=== PATIENT | male | born 1965 | race Caucasian/White ===

== ENCOUNTER 2016-07-15 23:59 | Inpatient (IN) ==
--- NOTE | 2016-07-16 00:21 | Emergency Department Note ---
Disposition Clinical Impression: UTI (urinary tract infection) Qualifiers: Urinary tract infection type: catheter-associated UTI Indwelling urinary catheter type: cystostomy catheter Encounter type: initial encounter Qualified Code(s): T83.510A - Infection and inflammatory reaction due to cystostomy catheter, initial encounter; N39.0 - Urinary tract infection, site not specified Disposition: Admitted As Inpatient Condition: Fair Referrals: NO,PCP [Non-Partnered Physician] - Forms: ED Satisfaction Letter General Adult HPI - General Chief complaint: ED Urogenital-Male Stated complaint: low urine output Time Seen by Provider: 07/16/16 00:18 Source: patient, EMS Mode of arrival: EMS Limitations: no limitations Nursing Notes Reviewed: Yes Vital Signs Reviewed: Yes - History of Present Illness Pt Subjective Complaint: Decreased urine output Onset (ago): day(s) ("All day only 1100 out per significant other") Pain Scale: 0 Consistency: intermittent Improves with: nothing Worsens with: nothing Associated symptoms: Denies: confusion, chest pain, cough, diaphoresis, fever/ chills, headaches, loss of appetite, malaise, nausea/vomiting, rash, seizure, shortness of breath, syncope, weakness Treatments Prior to Arrival: none - Related Data Home Medications Medication Instructions Recorded Confirmed Ascorbic Acid [Vitamin C] 500 mg PO DAILY 03/20/15 05/10/16 Carvedilol 12.5 mg GTUBE DAILY 03/20/15 05/10/16 Loratadine [Claritin] 10 mg GTUBE DAILY 03/20/15 05/10/16 Metformin HCl [Glucophage] 1,000 mg PO BID 03/20/15 05/10/16 Oxybutynin Chloride [Ditropan Xl] 5 mg GTUBE TID 03/20/15 05/10/16 Albuterol Sulfate [Ventolin Hfa] 1 puff IH BID 11/02/15 05/10/16 Cyanocobalamin (Vitamin B-12) 500 mcg PO DAILY 05/10/16 05/10/16 [Vitamin B-12] Docusate Sodium [Docu Liquid] 100 mg PO BID 05/10/16 05/10/16 Oxycodone HCl 15 mg PO Q6H PRN 05/10/16 05/10/16 Ranitidine HCl [Acid Model Artists'] 150 mg PO DAILY 05/10/16 05/10/16 Sennosides [Senna] 8.8 mg PO BID 05/10/16 05/10/16 Valproic Acid Oral Soln [Depakene 250 mg PO TID 05/10/16 05/10/16 Oral Soln] Previous Rx's Medication Instructions Recorded Ondansetron HCl [Zofran] 4 mg PO Q6HR PRN #30 tablet 10/04/15 Quetiapine Fumarate [Seroquel] 400 mg GTUBE HS 30 Days 10/29/15 RisperiDONE [RisperDAL] 0.5 mg PO BID #30 tablet 10/29/15 Butalb/Acetaminophen/Caffeine 1 each PO Q6HR PRN #10 tablet 11/06/15 [Esgic 50-325-40 mg Tablet] ClonazePAM [Klonopin] 1 mg GTUBE TID PRN #10 tablet 11/06/15 Docusate [Colace] 100 mg PO BID #14 capsule 04/11/16 Ertapenem [INVanz] 1,000 mg IVPB DAILY #14 vial 05/11/16 Allergies Allergy/AdvReac Type Severity Reaction Status Date / Time azithromycin [From Zithromax] Allergy Anaphylaxis Verified 05/10/16 17:40 linezolid [From Zyvox] Allergy Anaphylaxis Verified 05/10/16 17:40 Limitations: ROS unobtainable due to patients medical condition (patient was given 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 of 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 - 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) Past Medical History - Past Medical History Source: obtained from family Medical history: Reports: diabetes, GERD, hyperlipidemia, hypertension, other ( paraplegic, scaral and ischial ulcers, LE ulcers, Suprapubic catheter, PEG tube) Surgical history: Reports: other Psychiatric history: Reports: bipolar, schizophrenia - Social History Smoking Status: Current every day smoker Smokeless Tobacco Status: No Alcohol use: Reports: none Drug use: Reports: none Physical Exam - General Limitations: no limitations General appearance: in no apparent distress - Head Head exam: atraumatic, normocephalic, normal inspection - Eye Eye exam: Present: normal appearance, PERRL. Absent: scleral icterus, conjunctival injection, periorbital swelling, periorbital tenderness - ENT ENT exam: mucous membranes dry - Neck Neck exam: Present: normal inspection, full ROM, trachea midline. Absent: meningismus, lymphadenopathy - Chest Chest inspection: Present: normal inspection - Respiratory Respiratory exam: Present: normal lung sounds bilaterally. Absent: respiratory distress, wheezes, stridor, accessory muscle use, prolonged expiratory phase - Cardiovascular Cardiovascular exam: Present: normal rhythm, tachycardia, normal heart sounds - Abdominal Exam Abdominal exam: Present: soft, Non-Tender, other (suprapubic catheter in place. No erythema, no drainage, small amount of urine leaking around.). Absent: distention, guarding, rebound, rigidity, mass - Male exam: Present: normal inspection - Extremities Exam Extremities exam: Present: normal capillary refill - Neurological Exam Neurological exam: Present: other (somnolent) - Psychiatric Psychiatric exam: Present: normal affect, normal mood - Skin Skin exam: Present: warm, dry, normal color Course Course Narrative: Patient was sent in for evaluation of decreased urine output for the past 12 hours. Information was given to EMS and by the patient's significant other. The patient was given all of his nighttime medications, right before she called EMS. These medications are sedating. He is very sleepy. He arouses to loud verbal stimulus. There is a small amount of urine leaking from around the suprapubic catheter. The catheter balloon was attempted to be deflated. No air return. However, there was urine that returned. The catheter was removed and urine began to flow freely from the ostomy. A new catheter was placed without difficulty and urine began to fill the catheter bag. At this point, the patient became more alert and his heart rate decreased to the high 80s. Patient is a and O 3. He does not recall the name of his primary care provider. He does have a home health nurse. However, she is unable to be reached at this time. The urinalysis shows findings consistent with an infection. His recent urine cultures have grown Proteus and pseudomonas, which are resistant to all oral antibiotics. Will admit Vital Signs Temperature 98.5 F 07/16/16 00:01 Pulse Rate 108 07/16/16 00:01 Respiratory Rate 16 07/16/16 00:01 Blood Pressure 122/80 07/16/16 00:01 O2 Sat by Pulse Oximetry 92 L 07/16/16 00:01 Temperature 98.5 F 07/16/16 00:01 Pulse Rate 93 07/16/16 03:38 Respiratory Rate 16 07/16/16 03:38 Blood Pressure 123/80 07/16/16 03:38 O2 Sat by Pulse Oximetry 95 07/16/16 03:38 Oxygen Delivery Oxygen Delivery Nasal Cannula Medical Decision Making - Lab Data Result diagrams: 07/16/16 00:42 07/16/16 00:42 Lab Results 07/16/16 07/16/16 07/16/16 Range/Units 00:42 00:42 02:30 WBC 9.9 (4.3-11.1) K/mcL RBC 5.02 (4.19-5.50) M/mcL Hgb 16.2 (12.9-16.9) g/dL Hct 48.6 (37.5-50.1) % MCV 96.8 (83.0-100.0) fL MCH 32.3 (28.0-33.3) pg MCHC 33.3 (31.6-35.5) g/dL RDW 13.9 (11.5-14.5) % Plt Count 188 (140-400) K/mcL MPV 11.5 (9.4-12.4) fL Immature Gran % 0.8 (0-4) % Seg Neutrophils % 76.7 % Lymphocytes % 10.5 % Monocytes % 8.6 % Eosinophils % 2.9 % Basophils % 0.5 % Neutrophils # 7.6 (1.6-8.9) K/mcL Lymphocytes # 1.0 (0.6-4.6) K/mcL Monocytes # 0.9 (0.0-1.3) K/mcL Eosinophils # 0.3 (0.0-0.6) K/mcL Basophils # 0.1 (0.0-0.2) K/mcL Immature Plt Fraction 7.1 H (1.1-6.1) % Sodium 132 L (136-145) mEq/L Potassium 5.8 H (3.5-4.5) mEq/L Chloride 92 L (98-109) mEq/L Carbon Dioxide 31 H (19-29) mEq/L BUN 23 (8-26) mg/dL Creatinine 0.64 L (0.72-1.25) mg/dL Est GFR ( Amer) > 60 (> 60) Est GFR (Non-Af Amer) > 60 (> 60) BUN/Creatinine Ratio 36 H (6-26) Glucose 202 H (70-99) mg/dL Calculated Osmolality 283 (280-300) Calcium 10.0 (8.6-10.8) mg/dL Urine Color Yellow (Yellow) Urine Clarity Cloudy A (Clear) Urine pH 7.0 (5.0-8.0) pH Units Ur Specific [place] 1.010 (1.010-1.025) Urine Protein Negative (Neg-Trace) mg/dL Urine Glucose (UA) Normal (Normal) mg/dL Urine Ketones Negative (Negative) mg/dL Urine Blood Moderate H (Negative) Urine Nitrite Positive A (Negative) Urine Bilirubin Negative (Negative) Urine Urobilinogen Normal (Normal) mg/dL Ur Leukocyte Esterase Large H (Negative) Urine Microscopic RBC 0-3 (0-3) per hpf Urine Microscopic WBC 30-50 H (0-3) per hpf Ur Squamous Epith Cells Many H (None-Few) per lpf Urine Bacteria Many H (None-Few) per hpf Hyaline Casts None Seen (None-Few) per lpf Ur Culture Indicated? YES A (NO) Attestation Statement - Attestation Attestation: I examined this patient and my medical decision-making was reviewed with the Resident Physician. I agree with the documented findings, disposition and treatment plan as described except to the extent set forth below. Urinary cath obstructed - when cleared, approx 1000 cc urine return, pt felt much better. However, urine infected, h/o multidrug resistant infxns. K+ also mildly elevated. Abx choice based on prior cx results, Kayexalate given. Pt girlfriend does not seem very reliable, don't feel confident he'll get appropriate treatment and follow up as an outpatient, unable to identify his PCP. Will admit pending culture results, determine +/- need for PICC line/IV abx with social work/home nursing involvement vs. oral abx.
[2016-07-16 00:59] LABS: Basophils # 0.1 K/mcL (0.0-0.2); Basophils % 0.5 %; Eosinophils # 0.3 K/mcL (0.0-0.6); Eosinophils % 2.9 %; Hematocrit 48.6 % (37.5-50.1); Hemoglobin 16.2 g/dL (12.9-16.9); Immature Granulocytes % 0.8 % (0-4); Immature Platelets 7.1 % (1.1-6.1); Lymphocytes % 10.5 %; Mean Corpuscular HGB Conc 33.3 g/dL (31.6-35.5); Mean Corpuscular Hemoglobin 32.3 pg (28.0-33.3); Mean Corpuscular Volume 96.8 fL (83.0-100.0); Mean Platelet Volume 11.5 fL (9.4-12.4); Monocytes # 0.9 K/mcL (0.0-1.3); Monocytes % 8.6 %; Neutrophils # 7.6 K/mcL (1.6-8.9); Platelet Count 188 K/mcL (140-400); Red Blood Count 5.02 M/mcL (4.19-5.50); Red Cell Distribution Width 13.9 % (11.5-14.5); Segmented Neutrophils % 76.7 %
[2016-07-16 01:12] LABS: BUN/Creatinine Ratio 36 (6-26); Blood Urea Nitrogen 23 mg/dL (8-26); Carbon Dioxide 31 mEq/L (19-29); Chloride 92 mEq/L (98-109); Glucose 202 mg/dL (70-99); Osmolality,Calculated 283 (280-300); Potassium 5.8 mEq/L (3.5-4.5); Sodium 132 mEq/L (136-145); eGFR For African Americans > 60 (> 60); eGFR For Non-African Americans > 60 (> 60)
[2016-07-16 02:57] LABS: Bacteria,Urine Many per hpf (None-Few); Bilirubin,Urine Negative (Negative); Blood,Urine Moderate (Negative); Clarity,Urine Cloudy (Clear); Color,Urine Yellow (Yellow); Glucose,Urine (UA) Normal (Normal); Hyaline Casts,Urine None Seen per lpf (None-Few); Ketones,Urine Negative (Negative); Leukocyte Esterase,Urine Large (Negative); Nitrite,Urine Positive (Negative); Protein,Urine Negative (Neg-Trace); RBC,Urine 0-3 per hpf (0-3); Squamous Epithelial Cell,Urine Many per lpf (None-Few); Urobilinogen,Urine Normal (Normal); WBC,Urine 30-50 per hpf (0-3)
[2016-07-16] MEDS ORDERED: cefOXitin 2,000 MG in D5% in Water (Mini-Bag+) 100 ML IVPB ONE (03:56)
[2016-07-16] MEDS ORDERED: MORPHINE SULFATE 20 MG PO PRN (09:52)
[2016-07-16] MEDS ORDERED: Albuterol 2.5 MG/3 ML NEBULIZER IH PRN (09:54)
[2016-07-16] MEDS ORDERED: *HR* Dextrose 50 % in Water (Syg) 50 ML SYRINGE IVP PRN (09:55)
[2016-07-16] MEDS ORDERED: Dextrose Gel 15 GM PO PRN ×2 (09:55)
[2016-07-16] MEDS ORDERED: D5% in Water 1,000 ML IV PRN (09:55)
[2016-07-16] MEDS ORDERED: Naloxone 0.4 MG/ML INJ IVP PRN (09:56)
[2016-07-16] MEDS ORDERED: Lactulose Oral Soln 20 GM/30 ML UDC GTUBE ONE (10:01)
--- NOTE | 2016-07-16 10:07 | Internal Med History&Physical ---
Date of Encounter: 07/16/16 Time of Encounter: 09:35 Internal Medicine - H&P: HPI Chief complaint: confusion, weakness, bodyaches, diaphoresis, subjective fever Admitted From: Emergency Dept Plans for Post Hospital Care: Home History of present illness: Mr. Jaramillo is a 51 year old male with medical history significant for paraplegia, neurogenic ballder s/p suprapubic cystotomy because of confusion, somnolence and decrease urinary output from urinary catheter. He was brought in by EMS. At the time he arrived the ED, it as thought that his sleepiness was related related to taking 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 medications which are sedating. In the ED, the urinary catheter was changed as an obstruction was suspected. A small amount of discharge was noted around the catheter. It was noted that the patient became more alert (and was easily arousable). When I saw him, he was still drowsy but able to answer a few questions. He tells me he has UTI, he agrees to having confusion, subjective fevers, more weakness than usual. I am informed he lives at home and has home health services. I am unable to confirm his code status, no one is listed under NOK/POA on his facesheet. She is FULL CODE as per discussion, she nominates her , Felix Tan, as her NOK/POA. ROS: A 10-point ROS was attempted, but limited by patient's drowsy state. Family history: Attempted, , but limited by patient's drowsy state. Vital Signs Temperature 98.5 F 07/16/16 00:01 Pulse Rate 108 07/16/16 00:01 Respiratory Rate 16 07/16/16 00:01 Blood Pressure 122/80 07/16/16 00:01 O2 Sat by Pulse Oximetry 92 L 07/16/16 00:01 Temperature 98.5 F 07/16/16 00:01 Pulse Rate 93 07/16/16 03:38 Respiratory Rate 16 07/16/16 03:38 Blood Pressure 123/80 07/16/16 03:38 O2 Sat by Pulse Oximetry 95 07/16/16 03:38 O/E: Not in distress, drowsy/somnolent, ill and toxic looking HEENT: Not pale, anicteric, acyanotic, afebrile Chest: Transmitted breath sounds, some inconsistent rattling sounds, appear to be upper airway secretions. Heart: RRR, HS1.2 no murmur Abdomen: Chronically distended (as per patient), PEG tube site clean and dry, suprapubic catheter site site has minimal amount of discharge, soft, non-tender , firmness felt over the ascending colon in the mid and lower lower right half of the abdomen. BS hypoactive. : no suprapubic tenderness. Unable to reach the flank to elicit flank tenderness. 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 Psychiatry: Unable to assess. Affect is definited constructed (masked). Extremities: Paraplegic, heels cushions to prevent ulcer. I did not turn the patient over, but I understand he has sacral decubitus ulcer. Lab Results 07/16/16 07/16/16 07/16/16 Range/Units 00:42 00:42 02:30 WBC 9.9 (4.3-11.1) K/mcL RBC 5.02 (4.19-5.50) M/mcL Hgb 16.2 (12.9-16.9) g/dL Hct 48.6 (37.5-50.1) % MCV 96.8 (83.0-100.0) fL MCH 32.3 (28.0-33.3) pg MCHC 33.3 (31.6-35.5) g/dL RDW 13.9 (11.5-14.5) % Plt Count 188 (140-400) K/mcL MPV 11.5 (9.4-12.4) fL Immature Gran % 0.8 (0-4) % Seg Neutrophils % 76.7 % Lymphocytes % 10.5 % Monocytes % 8.6 % Eosinophils % 2.9 % Basophils % 0.5 % Neutrophils # 7.6 (1.6-8.9) K/mcL Lymphocytes # 1.0 (0.6-4.6) K/mcL Monocytes # 0.9 (0.0-1.3) K/mcL Eosinophils # 0.3 (0.0-0.6) K/mcL Basophils # 0.1 (0.0-0.2) K/mcL Immature Plt Fraction 7.1 H (1.1-6.1) % Sodium 132 L (136-145) mEq/L Potassium 5.8 H (3.5-4.5) mEq/L Chloride 92 L (98-109) mEq/L Carbon Dioxide 31 H (19-29) mEq/L BUN 23 (8-26) mg/dL Creatinine 0.64 L (0.72-1.25) mg/dL Est GFR ( Amer) > 60 (> 60) Est GFR (Non-Af Amer) > 60 (> 60) BUN/Creatinine Ratio 36 H (6-26) Glucose 202 H (70-99) mg/dL Calculated Osmolality 283 (280-300) Calcium 10.0 (8.6-10.8) mg/dL Urine Color Yellow (Yellow) Urine Clarity Cloudy A (Clear) Urine pH 7.0 (5.0-8.0) pH Units Ur Specific [place] 1.010 (1.010-1.025) Urine Protein Negative (Neg-Trace) mg/dL Urine Glucose (UA) Normal (Normal) mg/dL Urine Ketones Negative (Negative) mg/dL Urine Blood Moderate H (Negative) Urine Nitrite Positive A (Negative) Urine Bilirubin Negative (Negative) Urine Urobilinogen Normal (Normal) mg/dL Ur Leukocyte Esterase Large H (Negative) Urine Microscopic RBC 0-3 (0-3) per hpf Urine Microscopic WBC 30-50 H (0-3) per hpf Ur Squamous Epith Cells Many H (None-Few) per lpf Urine Bacteria Many H (None-Few) per hpf Hyaline Casts None Seen (None-Few) per lpf Ur Culture Indicated? YES A (NO) Chest xray: Bibasilar atelectasis KUB: Stool-filled colon. IMP 1. Complicated UTI, I cannot exclude early sepsis. 2. Altered mental status related to above 3. Blocked suprapubic catheter 4. Hyperkalemia 5. 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 PLAN Admit IVF NS @ 125 Suprapubic catheter has been changed IV Zosyn 3.375 mg Q8H Follow-up urine and blood cultures. Serial assessment of mental status. Kayexylate/Lactulose and IVF for hyperkalemia, trend serum potassium. Methyl natrexone 12 mg x 1, continue senna, colace for constipation Lovenox 40 mg SC for DVT prophlaxis Symptomatic care. Wound care consult for decubitus ulcer care. Hold metformin, continue Januvia, add low dose insulin sliding scale Q6H Continue Glucerna for tube feeding Continue home analgesic regimen. Albuterol nebs q4h Continue other essential medications of chronic morbidities. Decubitus ulcer prevention. I am unable to discuss my findings and assessment with the patient due to his status. He needs admission as he is at high risk for sepsis. Past Med Surg Social Fam HX - Past Medical History Medical history: diabetes, GERD, hyperlipidemia, hypertension, other Psychiatric history: bipolar, schizophrenia - Past Surgical History Surgical History: other - Social History Smoking Status: Current every day smoker Smokeless Tobacco Status: No Alcohol use: none Drug use: none - Family History Mother Adopted: No Family Member Ethnicity: Non- Living Status: Hx Family Cardiac Disorders: No Hx Family Respiratory Disorders: No Hx Family Cancer: No Hx Family GI Disorders: No Hx Family Endocrine Disorder: No Hx Family Neuromuscular Disorders: No Hx Family Neurologic Disorders: No Hx Family HEENT Disorders: No Hx Family Autoimmune Disorders: No Internal Medicine - H&P: Meds Ascorbic Acid [Vitamin C] 500 mg PO DAILY 03/20/15 [History] Carvedilol 6.25 mg GTUBE DAILY 03/20/15 [History] Loratadine [Claritin] 10 mg GTUBE DAILY 03/20/15 [History] Metformin HCl [Glucophage] 1,000 mg PO BID 03/20/15 [History] Oxybutynin Chloride [Ditropan Xl] 5 mg GTUBE TID 03/20/15 [History] Ondansetron HCl [Zofran] 4 mg PO Q6HR PRN #30 tablet 10/04/15 [Rx] Quetiapine Fumarate [Seroquel] 400 mg GTUBE HS 30 Days 10/29/15 [Rx] RisperiDONE [RisperDAL] 0.5 mg PO BID #30 tablet 10/29/15 [Rx] Albuterol Sulfate [Ventolin Hfa] 2 puff IH Q4H PRN 11/02/15 [History] ClonazePAM [Klonopin] 1 mg GTUBE TID PRN #10 tablet 11/06/15 [Rx] Cyanocobalamin (Vitamin B-12) [Vitamin B-12] 500 mcg PO DAILY 05/10/16 [History] Docusate Sodium [Docu Liquid] 100 mg PO BID 05/10/16 [History] Oxycodone HCl 15 mg PO Q6H PRN 05/10/16 [History] Ranitidine HCl [Acid Health Program Analyst] 150 mg PO DAILY 05/10/16 [History] Sennosides [Senna] 2 ml PO HS 05/10/16 [History] Valproic Acid Oral Soln [Depakene Oral Soln] 250 mg PO TID 05/10/16 [History] Butalb/Acetaminophen/Caffeine [Esgic 50-325-40 mg Tablet] 1 tab PO TID PRN 07/16 [History] Morphine Sulfate 20 mg PO Q4H PRN 07/16/16 [History] Pregabalin [Lyrica] 150 mg PO BID 07/16/16 [History] Promethazine [Phenergan] 25 mg PO TID PRN 07/16/16 [History] Allergies azithromycin [From Zithromax] Allergy (Verified 05/10/16 17:40) Anaphylaxis linezolid [From Zyvox] Allergy (Verified 05/10/16 17:40) Anaphylaxis All Systems PM: A 10-system review of systems was performed and is negative for pertinent findings except as documented above in the HPI. - Constitutional Vitals: Temp Pulse Resp BP Pulse Ox 98.5 F 93 16 138/88 99 07/16/16 07:42 07/16/16 07:42 07/16/16 07:42 07/16/16 07:42 07/16/16 07:42 Internal Med - H&P Results - Labs CBC & Chem 7: 07/16/16 00:42 07/16/16 00:42
[2016-07-16] MEDS: 0.9 % Sodium Chloride 1,000 ML IVC SCH ×2 (10:46→20:00)
[2016-07-16] MEDS: clonazePAM 1 MG TABLET GTUBE PRN (10:47)
[2016-07-16] MEDS: *HR* OxyCODONE Immed Rel 15 MG TABLET PO PRN ×2 (10:48→16:46)
[2016-07-16] MEDS ORDERED: Methylnaltrexone 12 MG/0.6 ML SYRINGE SQ ONE (11:09)
[2016-07-16] MEDS: Valproic Acid Oral Soln 250 MG/5 ML UDC PO SCH ×2 (13:17→20:32)
[2016-07-16] MEDS: Acetaminophen/Butalbital/CaffeineTABLET PO PRN ×2 (13:17→20:32)
[2016-07-16] MEDS: Insulin LISPRO 300 UNITS/3 ML VIAL SQ SCH ×2 (13:18→16:47)
[2016-07-16] MEDS: Piperacillin/Tazobactam 3.375 GM in D5% in Water (Mini-Bag+) 100 ML IVPB SCH ×2 (15:02→23:41)
[2016-07-16 15:17] LABS: BUN/Creatinine Ratio 21 (6-26); Blood Urea Nitrogen 14 mg/dL (8-26); Calcium 9.7 mg/dL (8.6-10.8); Carbon Dioxide 33 mEq/L (19-29); Chloride 95 mEq/L (98-109); Glucose 202 mg/dL (70-99); Osmolality,Calculated 292 (280-300); Sodium 138 mEq/L (136-145); eGFR For African Americans > 60 (> 60); eGFR For Non-African Americans > 60 (> 60)
[2016-07-16 15:18] LABS: Potassium 3.9 mEq/L (3.5-4.5)
[2016-07-16] MEDS ORDERED: Ketorolac 30 MG/ML VIAL IVP ONE (16:16)
[2016-07-16] MEDS: Pregabalin 75 MG CAPSULE PO SCH (20:32)
[2016-07-16] MEDS: Docusate Oral Soln 100 MG/10 ML UDC PO SCH (20:32)
[2016-07-16] MEDS: risperiDONE 0.25 MG TABLET PO SCH (20:32)
[2016-07-17] MEDS: Insulin LISPRO 300 UNITS/3 ML VIAL SQ SCH ×4 (00:29→18:05)
[2016-07-17] MEDS: *HR* OxyCODONE Immed Rel 15 MG TABLET PO PRN ×3 (00:29→20:15)
[2016-07-17] MEDS: 0.9 % Sodium Chloride 1,000 ML IVC SCH (04:30)
[2016-07-17 04:53] LABS: BUN/Creatinine Ratio 38 (6-26); Blood Urea Nitrogen 21 mg/dL (8-26); Calcium 9.3 mg/dL (8.6-10.8); Carbon Dioxide 37 mEq/L (19-29); Chloride 95 mEq/L (98-109); Glucose 118 mg/dL (70-99); Osmolality,Calculated 290 (280-300); Potassium 3.8 mEq/L (3.5-4.5); Sodium 138 mEq/L (136-145); eGFR For African Americans > 60 (> 60); eGFR For Non-African Americans > 60 (> 60)
[2016-07-17] MEDS: Acetaminophen/Butalbital/CaffeineTABLET PO PRN (06:04)
[2016-07-17] MEDS ORDERED: *HR* Enoxaparin 40 MG/0.4 ML SYRINGE SQ ONE (08:20)
[2016-07-17] MEDS ORDERED: NON-FORMULARY MEDICATION 1 EACH EACH (Ranitidine Hcl [Acid Reducer] 150 MG) PO SCH (09:00)
[2016-07-17] MEDS: Piperacillin/Tazobactam 3.375 GM in D5% in Water (Mini-Bag+) 100 ML IVPB SCH ×2 (10:19→15:22)
[2016-07-17] MEDS: Cyanocobalamin (B-12) 1,000 MCG TABLET PO SCH (10:22)
[2016-07-17] MEDS: Valproic Acid Oral Soln 250 MG/5 ML UDC PO SCH ×3 (10:22→20:15)
[2016-07-17] MEDS: Docusate Oral Soln 100 MG/10 ML UDC PO SCH ×2 (10:22→20:15)
[2016-07-17] MEDS: Famotidine 20 MG TABLET PO SCH (10:22)
[2016-07-17] MEDS: clonazePAM 1 MG TABLET GTUBE PRN (10:23)
[2016-07-17] MEDS: Ascorbic Acid 500 MG TABLET PO SCH (10:23)
[2016-07-17] MEDS: Pregabalin 75 MG CAPSULE PO SCH ×2 (10:23→20:15)
[2016-07-17] MEDS: Loratadine 10 MG TABLET GTUBE SCH (10:23)
[2016-07-17] MEDS: risperiDONE 0.25 MG TABLET PO SCH ×2 (10:23→20:15)
--- NOTE | 2016-07-17 10:56 | Internal Med Progress Note ---
Date of Encounter: 07/17/16 Time of Encounter: 10:54 - Assessment and plan (1) UTI (urinary tract infection) Current Visit: Yes Status: Acute Assessment and plan: Complicated UTI in the setting of a patient with paraplegia and a suprapubic catheter. Gram-negative rods isolated in the urine. We will continue with Zosyn at this point. Adjust therapy according to cultures. No sepsis criteria currently, we will continue monitoring the patient closely. The patient is at high risk and developing complications such as sepsis in the setting of his condition of poor nutrition and paraplegia with a concomitant urinary tract infection. No leukocytosis, no fever. DVT prophylaxis with Lovenox. Qualifiers: Urinary tract infection type: catheter-associated UTI Indwelling urinary catheter type: cystostomy catheter Encounter type: initial encounter Qualified Code(s): T83.510A - Infection and inflammatory reaction due to cystostomy catheter, initial encounter; N39.0 - Urinary tract infection, site not specified (2) Altered mental status Current Visit: No Status: Acute Assessment and plan: Likely due to concomitant infection. Continue monitoring. Qualifiers: Altered mental status type: unspecified Qualified Code(s): R41.82 - Altered mental status, unspecified (3) DVT prophylaxis Current Visit: No Status: Acute Assessment and plan: Continue with Lovenox. (4) Decubitus ulcer Current Visit: No Status: Acute Qualifiers: Pressure ulcer location: sacral region Pressure ulcer stage: unspecified pressure ulcer stage Qualified Code(s): L89.159 - Pressure ulcer of sacral region, unspecified stage (5) Paraplegia, unspecified Current Visit: No Status: Chronic Assessment and plan: Chronic. - Time Spent With Patient 25 - 35 minutes - Subjective Interval history: 1st encounter with the patient. No fever, the patient is not complaining of pain. He has a suprapubic catheter placed. - Constitutional Vitals: Temp Pulse Resp BP Pulse Ox 97.8 F 84 18 161/97 96 07/17/16 06:29 07/17/16 06:29 07/17/16 06:29 07/17/16 06:29 07/17/16 06:29 General appearance: Present: disheveled, A&O X 2, mild distress Exam: paraplegic, suprapubic catheter placed. - Head Head exam: Present: atraumatic, normocephalic - Eye Eye exam: Present: PERRL, conjuntiva pink, sclera anicteric Pupils: Present: PERRL - Neck Neck exam general surgery: Present: supple, trachea midline. Absent: lymphadenopathy - Respiratory Respiratory exam: Present: CTAB. Absent: accessory muscle use, rales, rhonchi, wheezes - Cardiovascular Cardiovascular exam: Present: RRR, +S1, +S2. Absent: diastolic murmur, gallop, rubs, systolic murmur - GI/Abdominal GI/Abdominal exam: Present: normal bowel sounds, soft, no peritoneal signs. Absent: distended, tenderness - Extremities Exam Extremities exam: Present: warm, radial pulses palpable and symetrical. Absent : calf tenderness, cyanotic, pedal edema - Neurological Exam Neurological exam: Absent: pronater drift, facial droop, speech deficit Additional comments: paraplagic - Skin Skin exam: Present: dry, intact Internal Medicine: Result - Labs CBC & Chem 7: 07/16/16 00:42 07/17/16 04:13 Labs: BMP 07/16/16 07/17/16 14:55 04:13 Sodium 138 138 Potassium 3.9 D 3.8 Chloride 95 L 95 L Carbon Dioxide 33 H 37 H BUN 14 21 Creatinine 0.66 L 0.56 L Glucose 202 H 118 H Calcium 9.7 9.3 - Impressions Impressions KUB X-Ray 07/16/16 10:02 IMPRESSION: Stool-filled colon consistent with the clinical diagnosis of constipation. D/ / 07/16/2016 10:49:40 Miles Klein MD / [facility] Interpreting Provider: Miles Klein MD Consult Discharge Plan - Plan Referrals: Kobe Bailon DO [Primary Care Provider] -
[2016-07-18] MEDS: Acetaminophen/Butalbital/CaffeineTABLET PO PRN ×2 (01:02→07:01)
[2016-07-18] MEDS: Piperacillin/Tazobactam 3.375 GM in D5% in Water (Mini-Bag+) 100 ML IVPB SCH (01:02)
[2016-07-18] MEDS: Insulin LISPRO 300 UNITS/3 ML VIAL SQ SCH ×2 (01:33→06:02)
[2016-07-18] MEDS: *HR* OxyCODONE Immed Rel 15 MG TABLET PO PRN ×2 (03:07→08:53)
[2016-07-18 06:53] VITALS: BP 146/92
[2016-07-18] MEDS ORDERED: *HR* Enoxaparin 40 MG/0.4 ML SYRINGE SQ SCH (07:00)
[2016-07-18 07:49] LABS: Basophils % 0.6 %; Eosinophils # 0.5 K/mcL (0.0-0.6); Eosinophils % 7.3 %; Immature Granulocytes % 0.3 % (0-4); Immature Platelets 6.5 % (1.1-6.1); Lymphocytes % 30.8 %; Mean Corpuscular HGB Conc 31.8 g/dL (31.6-35.5); Mean Corpuscular Hemoglobin 30.9 pg (28.0-33.3); Mean Corpuscular Volume 97.1 fL (83.0-100.0); Mean Platelet Volume 11.2 fL (9.4-12.4); Monocytes # 0.6 K/mcL (0.0-1.3); Monocytes % 9.5 %; Neutrophils # 3.3 K/mcL (1.6-8.9); Platelet Count 138 K/mcL (140-400); Red Blood Count 4.53 M/mcL (4.19-5.50); Red Cell Distribution Width 13.8 % (11.5-14.5); Segmented Neutrophils % 51.5 %
[2016-07-18 07:59] LABS: BUN/Creatinine Ratio 21 (6-26); Blood Urea Nitrogen 12 mg/dL (8-26); Calcium 8.1 mg/dL (8.6-10.8); Carbon Dioxide 32 mEq/L (19-29); Chloride 100 mEq/L (98-109); Glucose 128 mg/dL (70-99); Osmolality,Calculated 289 (280-300); Potassium 3.4 mEq/L (3.5-4.5); Sodium 139 mEq/L (136-145); eGFR For African Americans > 60 (> 60); eGFR For Non-African Americans > 60 (> 60)
[2016-07-18] MEDS ORDERED: Potassium Chloride Elixir 20 MEQ/15 ML UDC GTUBE ONE (08:31)
[2016-07-18] MEDS: clonazePAM 1 MG TABLET GTUBE PRN (08:44)
[2016-07-18] MEDS: Valproic Acid Oral Soln 250 MG/5 ML UDC PO SCH (08:44)
[2016-07-18] MEDS: risperiDONE 0.25 MG TABLET PO SCH (08:44)
[2016-07-18] MEDS: Docusate Oral Soln 100 MG/10 ML UDC PO SCH (08:44)
[2016-07-18] MEDS: Ascorbic Acid 500 MG TABLET PO SCH (08:44)
[2016-07-18] MEDS: Famotidine 20 MG TABLET PO SCH (08:45)
[2016-07-18] MEDS: Loratadine 10 MG TABLET GTUBE SCH (08:45)
[2016-07-18] MEDS: Pregabalin 75 MG CAPSULE PO SCH (08:45)
[2016-07-18] MEDS: Cyanocobalamin (B-12) 1,000 MCG TABLET PO SCH (08:46)
--- NOTE | 2016-07-18 10:24 | Discharge Summary ---
Date of Encounter: 07/18/16 Time of Encounter: 10:21 - Discharge Diagnosis (1) UTI (urinary tract infection) Priority: Primary Status: Acute Qualifiers: Urinary tract infection type: catheter-associated UTI Indwelling urinary catheter type: cystostomy catheter Encounter type: initial encounter Qualified Code(s): T83.510A - Infection and inflammatory reaction due to cystostomy catheter, initial encounter; N39.0 - Urinary tract infection, site not specified (2) Altered mental status Priority: Secondary Status: Acute Qualifiers: Altered mental status type: unspecified Qualified Code(s): R41.82 - Altered mental status, unspecified (3) DVT prophylaxis Priority: Secondary Status: Acute (4) Decubitus ulcer Priority: Secondary Status: Acute Qualifiers: Pressure ulcer location: sacral region Pressure ulcer stage: unspecified pressure ulcer stage Qualified Code(s): L89.159 - Pressure ulcer of sacral region, unspecified stage (5) Paraplegia, unspecified Priority: Secondary Status: Chronic - Discharge Medications Prescriptions: CefTRIAXone [Rocephin] 1,000 mg IVPB DAILY #9 vial Home Medications: Ascorbic Acid [Vitamin C] 500 mg PO DAILY 03/20/15 [History] Carvedilol 6.25 mg GTUBE DAILY 03/20/15 [History] Loratadine [Claritin] 10 mg GTUBE DAILY 03/20/15 [History] Metformin HCl [Glucophage] 1,000 mg PO BID 03/20/15 [History] Oxybutynin Chloride [Ditropan Xl] 5 mg GTUBE TID 03/20/15 [History] Ondansetron HCl [Zofran] 4 mg PO Q6HR PRN #30 tablet 10/04/15 [Rx] Quetiapine Fumarate [Seroquel] 400 mg GTUBE HS 30 Days 10/29/15 [Rx] RisperiDONE [RisperDAL] 0.5 mg PO BID #30 tablet 10/29/15 [Rx] Albuterol Sulfate [Ventolin Hfa] 2 puff IH Q4H PRN 11/02/15 [History] ClonazePAM [Klonopin] 1 mg GTUBE TID PRN #10 tablet 11/06/15 [Rx] Cyanocobalamin (Vitamin B-12) [Vitamin B-12] 500 mcg PO DAILY 05/10/16 [History] Docusate Sodium [Docu Liquid] 100 mg PO BID 05/10/16 [History] Oxycodone HCl 15 mg PO Q6H PRN 05/10/16 [History] Ranitidine HCl [Acid Edge Molder] 150 mg PO DAILY 05/10/16 [History] Sennosides [Senna] 2 ml PO HS 05/10/16 [History] Valproic Acid Oral Soln [Depakene Oral Soln] 250 mg PO TID 05/10/16 [History] Butalb/Acetaminophen/Caffeine [Esgic 50-325-40 mg Tablet] 1 tab PO TID PRN 07/16 [History] Morphine Sulfate 20 mg PO Q4H PRN 07/16/16 [History] Pregabalin [Lyrica] 150 mg PO BID 07/16/16 [History] Promethazine [Phenergan] 25 mg PO TID PRN 07/16/16 [History] CefTRIAXone [Rocephin] 1,000 mg IVPB DAILY #9 vial 07/18/16 [Rx] Allergies/Adverse Reactions: Allergies azithromycin [From Zithromax] Allergy (Verified 05/10/16 17:40) Anaphylaxis linezolid [From Zyvox] Allergy (Verified 05/10/16 17:40) Anaphylaxis Date of admission: 07/16/16 09:56 Primary care physician: Kobe Bailon DO Consults: 07/16/16 10:43 Consult to Wound Care [CONS] Routine Reason for Consult: wound care. Call Completed: No 07/16/16 12:33 Consult to Invasive Line Access Team [CONS] Routine Reason for Consult: Home on IV ATB Line Type: EPIV Discharging clinician: Rj Aguirre Anticipated date of discharge: 07/18/16 - Patient Status Disposition: Home Health Service Condition: Fair Functional capacity at discharge: bed bound Overall status at discharge: patient is back to baseline - Discharge Instructions Follow Up With: Kobe Bailon DO [Primary Care Provider] - - Diet and Activity Activity: increase activity as tolerated Diet: advance to your usual diet Interval History: Mr. Jaramillo is a 51 year old male with medical history significant for paraplegia, neurogenic ballder s/p suprapubic cystotomy because of confusion, somnolence and decrease urinary output from urinary catheter. He was brought in by EMS. At the time he arrived the ED, it as thought that his sleepiness was related related to taking 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 medications which are sedating. In the ED, the urinary catheter was changed as an obstruction was suspected. A small amount of discharge was noted around the catheter. It was noted that the patient became more alert (and was easily arousable). When I saw him, he was still drowsy but able to answer a few questions. He tells me he has UTI, he agrees to having confusion, subjective fevers, more weakness than usual. I am informed he lives at home and has home health services. I am unable to confirm his code status, no one is listed under NOK/POA on his facesheet. She is FULL CODE as per discussion, she nominates her , Felix Tan, as her NOK/POA. ROS: A 10-point ROS was attempted, but limited by patient's drowsy state. Family history: Attempted, , but limited by patient's drowsy state. Hospital course: Mr. Jaramillo is a 51 year old male Complicated UTI in the setting of a patient with paraplegia and a suprapubic catheter. Gram-negative rods isolated in the urine. Klebsiella isolated, sensitive to Rocephin. Antibiotic therapy was switched from Zosyn to Rocephin. The patient is feeling much better today, he is back to his baseline clinical condition. We will discharge him home today, will continue with IV antibiotics to complete 10 days of IV Rocephin. Patient has power glyde for continuity of IV antibiotics. Prescriptions written for Rocephin to complete 10 days. We provide a continuity of care form for continuity of IV antibiotics at home. The plan of care was explained in detail to the patient, he expressed understanding. - Time Spent with Patient Total time spent providing and/or coordinating discharge services: Greater than 30 minutes - Constitutional Vitals: Temp Pulse Resp BP Pulse Ox 97.7 F 72 20 146/92 100 07/18/16 06:53 07/18/16 06:53 07/18/16 06:53 07/18/16 06:53 07/18/16 06:53 General appearance: Present: disheveled, A&O X 2, mild distress Exam: paraplegia suprapubic catheter noted. - Head Head exam: Present: atraumatic, normocephalic - Eye Eye exam: Present: PERRL, conjuntiva pink, sclera anicteric Pupils: Present: PERRL - Neck Neck exam general surgery: Present: supple, trachea midline. Absent: lymphadenopathy - Respiratory Respiratory exam: Present: CTAB. Absent: accessory muscle use, rales, rhonchi, wheezes - Cardiovascular Cardiovascular exam: Present: RRR, +S1, +S2. Absent: diastolic murmur, gallop, rubs, systolic murmur - GI/Abdominal GI/Abdominal exam: Present: normal bowel sounds, soft, no peritoneal signs. Absent: distended, tenderness - Extremities Exam Extremities exam: Present: warm, radial pulses palpable and symetrical. Absent : calf tenderness, cyanotic, pedal edema - Neurological Exam Neurological exam: Present: oriented X3. Absent: pronater drift, facial droop, speech deficit - Skin Skin exam: Present: dry, intact
--- NOTE | 2016-07-18 10:29 | Physician Discharge Referral ---
Home Health/Hosp Referral Info Transfer to: Home Health Provider in Charge Post Discharge: PCP - Diagnosis (1) UTI (urinary tract infection) Status: Acute (2) Altered mental status Status: Acute (3) DVT prophylaxis Status: Acute (4) Decubitus ulcer Status: Acute (5) Paraplegia, unspecified Status: Chronic - Respiratory Orders Smoking Cessation: Smoking cessation has been advised. For more information, call the [place] Tobacco Quit Line at 2-550-MLHW-NOW. - Diet/Nutrition Diet/Nutrition: List: tube feeding - Activity Activity Orders: Bedrest - Services Needed Following services are medically necessary services: Nursing, Home Health Aide, Physical Therapy, Home Infusion (IV rocephin 1 gr daily to complete 10 days.) - Transfer Medications Prescriptions: CefTRIAXone [Rocephin] 1,000 mg IVPB DAILY #9 vial Home Medications: Ascorbic Acid [Vitamin C] 500 mg PO DAILY 03/20/15 [History] Carvedilol 6.25 mg GTUBE DAILY 03/20/15 [History] Loratadine [Claritin] 10 mg GTUBE DAILY 03/20/15 [History] Metformin HCl [Glucophage] 1,000 mg PO BID 03/20/15 [History] Oxybutynin Chloride [Ditropan Xl] 5 mg GTUBE TID 03/20/15 [History] Ondansetron HCl [Zofran] 4 mg PO Q6HR PRN #30 tablet 10/04/15 [Rx] Quetiapine Fumarate [Seroquel] 400 mg GTUBE HS 30 Days 10/29/15 [Rx] RisperiDONE [RisperDAL] 0.5 mg PO BID #30 tablet 10/29/15 [Rx] Albuterol Sulfate [Ventolin Hfa] 2 puff IH Q4H PRN 11/02/15 [History] ClonazePAM [Klonopin] 1 mg GTUBE TID PRN #10 tablet 11/06/15 [Rx] Cyanocobalamin (Vitamin B-12) [Vitamin B-12] 500 mcg PO DAILY 05/10/16 [History] Docusate Sodium [Docu Liquid] 100 mg PO BID 05/10/16 [History] Oxycodone HCl 15 mg PO Q6H PRN 05/10/16 [History] Ranitidine HCl [Acid [employer] Professional] 150 mg PO DAILY 05/10/16 [History] Sennosides [Senna] 2 ml PO HS 05/10/16 [History] Valproic Acid Oral Soln [Depakene Oral Soln] 250 mg PO TID 05/10/16 [History] Butalb/Acetaminophen/Caffeine [Esgic 50-325-40 mg Tablet] 1 tab PO TID PRN 07/16 [History] Morphine Sulfate 20 mg PO Q4H PRN 07/16/16 [History] Pregabalin [Lyrica] 150 mg PO BID 07/16/16 [History] Promethazine [Phenergan] 25 mg PO TID PRN 07/16/16 [History] CefTRIAXone [Rocephin] 1,000 mg IVPB DAILY #9 vial 07/18/16 [Rx] Allergies/Adverse Reactions: Allergies azithromycin [From Zithromax] Allergy (Verified 05/10/16 17:40) Anaphylaxis linezolid [From Zyvox] Allergy (Verified 05/10/16 17:40) Anaphylaxis Certification: Further, I certify that my clinical findings support that this patient is homebound (i.e. absences from home require considerable and taxing effort and are for medical reasons or buddhism services or infrequently or short duration when for other reasons) because: Homebound Reason: Patient requires assistance of a person or device to safely leave home, Leaving home requires considerable and taxing effort due to condition Attestation: My signature below is to certify that this patient is under my care and that I, or nurse practitioner, or a physician's political science research assistant working with me, has a face-to -face encounter with this patient.
== END 2016-07-18 12:01 | disposition home health service (06) | DRG 699 ==
LOC: 3BNU 23:59 → EMEROO 23:59 → 3BNU 07-16 07:01 → SUATTDRO 07-16 09:56
PROVIDERS: ADMIT Nurse Practitioner Family; ATTEND Internal Medicine

== ENCOUNTER 2016-10-09 19:01 | Inpatient (IN) ==
[2016-10-09] MEDS ORDERED: 0.9 % Sodium Chloride 1,000 ML IVC ONE ×2 (19:07→20:19)
[2016-10-09] MEDS ORDERED: Levofloxacin 750 MG/150 ML 750 MG/150 ML BAG IVPB ONE (19:07)
--- NOTE | 2016-10-09 19:29 | Emergency Department Note ---
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 He states that he has a urinary tract infection and wants some antibiotic. He denies any vomiting, infusion, neck pain or stiffness, chest pain, abdominal pain. He states that his urine has been cloudy exactly the same as prior urinary tract infections. Pt Subjective Complaint: fever - Related Data Home Medications Medication Instructions Recorded Confirmed Ascorbic Acid [Vitamin C] 500 mg PO DAILY 03/20/15 07/30/16 Carvedilol 6.25 mg GTUBE DAILY 03/20/15 07/30/16 Loratadine [Claritin] 10 mg GTUBE DAILY 03/20/15 07/30/16 Metformin HCl [Glucophage] 1,000 mg PO BID 03/20/15 07/30/16 Albuterol Sulfate [Ventolin Hfa] 2 puff IH Q4H PRN 11/02/15 07/30/16 Cyanocobalamin (Vitamin B-12) 500 mcg PO DAILY 05/10/16 07/30/16 [Vitamin B-12] Docusate Sodium [Docu Liquid] 100 mg PO BID 05/10/16 07/30/16 Oxycodone HCl 15 mg PO Q6H PRN 05/10/16 07/30/16 Ranitidine HCl [Acid Distance Learning Program Coordinator] 150 mg PO DAILY 05/10/16 07/30/16 Sennosides [Senna] 2 ml PO HS 05/10/16 07/30/16 Valproic Acid Oral Soln [Depakene 250 mg PO TID 05/10/16 07/30/16 Oral Soln] Butalb/Acetaminophen/Caffeine 1 tab PO TID PRN 07/16/16 07/30/16 [Esgic 50-325-40 mg Tablet] Morphine Sulfate [Morphine Oral 20 mg PO Q4H PRN 07/16/16 07/30/16 Solution] Pregabalin [Lyrica] 150 mg PO BID 07/16/16 07/30/16 Promethazine [Phenergan] 25 mg PO TID PRN 07/16/16 07/30/16 Oxybutynin [Ditropan] 5 mg GTUBE TID 07/30/16 07/30/16 Previous Rx's Medication Instructions Recorded Ondansetron HCl [Zofran] 4 mg PO Q6HR PRN #30 tablet 10/04/15 Quetiapine Fumarate [Seroquel] 400 mg GTUBE HS 30 Days 10/29/15 risperiDONE [RisperDAL] 0.5 mg PO BID #30 tablet 10/29/15 clonazePAM [Klonopin] 1 mg GTUBE TID PRN #10 tablet 11/06/15 Doxycycline 100 mg PO BID #14 capsule 07/30/16 Polyethylene Glycol 3350 [MiraLAX 1 scoop PO QID PRN #30 gm 07/30/16 Powder Bulk 17.9 Oz] [id number],Iso 3.375 gm IV QID #20 [id number] 08/02/16 [Zosyn 3.375 gm/50 ml Galaxy] Allergies Allergy/AdvReac Type Severity Reaction Status Date / Time azithromycin [From Zithromax] Allergy Anaphylaxis Verified 10/10/16 00:08 linezolid [From Zyvox] Allergy Anaphylaxis Verified 10/10/16 00:08 All systems ED: reviewed and negative except as stated. Fever PMH - Past Medical History Medical history: Reports: diabetes, GERD, hyperlipidemia, hypertension, other Surgical history: Reports: other Psychiatric history: Reports: bipolar, schizophrenia - Social History Smoking Status: Current every day smoker Alcohol use: Reports: none Drug use: Reports: none Physical Exam - Head Head exam: atraumatic, normocephalic, normal inspection - Eye Eye exam: Present: normal appearance, PERRL, EOMI - ENT ENT exam: normal exam, normal oropharynx, mucous membranes moist - Neck Neck exam: Present: normal inspection, full ROM, trachea midline - Chest Chest inspection: Present: normal inspection, symmetric chest wall rise - Respiratory Respiratory exam: Clear to auscultation bilaterally without wheezes rales or rhonchi Cardiovascular Cardiovascular exam: Present: regular rate, normal rhythm, normal heart sounds - Abdominal Exam Suprapubic catheter in place draining cloudy urine. Otherwise abdomen is normal. It is soft and nontender without signs of cellulitis around the suprapubic. - Extremities Exam History of paraplegia. Normal inspection. Normal range of motion of the upper extremities. - Neurological Exam Neurological exam: Present: alert, oriented X3, CN II-XII intact - Psychiatric Psychiatric exam: Present: normal affect, normal mood - Skin Skin exam: Present: warm, dry, intact, normal color - General Limitations: no limitations General appearance: alert, in no apparent distress Course - Reevaluation(s) Reevaluation #1: Patient with leukocytosis to 22. Heart rate improved from 120s to 100. Patient receiving 2 L saline bolus. He has 2 IVs. Lactate is improved from 2.6 -2.2. No hypotension. He has urinary tract infection with sepsis. No septic shock. Hospitalist was was pageamelia. Time: 21:15 Vital Signs Temperature 101.0 F H 10/09/16 19:04 Pulse Rate 117 10/09/16 19:04 Respiratory Rate 16 10/09/16 19:04 Blood Pressure 160/98 10/09/16 19:04 O2 Sat by Pulse Oximetry 94 10/09/16 19:04 Temperature 98.3 F 10/10/16 03:26 Pulse Rate 85 10/10/16 03:26 Respiratory Rate 18 10/10/16 03:26 Blood Pressure 135/77 10/10/16 03:26 O2 Sat by Pulse Oximetry 93 10/10/16 03:26 Oxygen Delivery Oxygen Delivery Nasal Cannula Fever - Lab Data Result diagrams: 10/09/16 20:03 10/09/16 20:03 Lab Results 10/09/16 10/09/16 10/09/16 Range/Units 20:03 20:03 20:03 WBC 22.2 H (4.3-11.1) K/mcL RBC 6.20 H (4.19-5.50) M/mcL Hgb 19.8 H (12.9-16.9) g/dL Hct 60.6 H (37.5-50.1) % MCV 97.7 (83.0-100.0) fL MCH 31.9 (28.0-33.3) pg MCHC 32.7 (31.6-35.5) g/dL RDW 14.2 (11.5-14.5) % Plt Count 160 (140-400) K/mcL MPV 11.2 (9.4-12.4) fL Immature Gran % 0.6 (0-4) % Seg Neutrophils % 88.9 % Lymphocytes % 3.1 % Monocytes % 7.0 % Eosinophils % 0.1 % Basophils % 0.3 % Neutrophils # 19.8 H (1.6-8.9) K/mcL Lymphocytes # 0.7 (0.6-4.6) K/mcL Monocytes # 1.6 H (0.0-1.3) K/mcL Eosinophils # 0.0 (0.0-0.6) K/mcL Basophils # 0.1 (0.0-0.2) K/mcL PT (9.4-12.1) Seconds INR APTT (26.0-36.0) Seconds ABG pH (7.32-7.45) pH Units ABG pCO2 (35-45) mmHg ABG pO2 (85-104) mmHg ABG HCO3 (21-27) mEQ/L ABG Total CO2 (20-26) mEq/L ABG O2 Saturation (95-98) % ABG Base Excess (-2.0 to 3.0) mEq/L Blood Gas Modality Inspired O2 % Sodium 130 L (136-145) mEq/L Potassium 4.9 H (3.5-4.5) mEq/L Chloride 88 L (98-109) mEq/L Carbon Dioxide 28 (19-29) mEq/L BUN 25 (8-26) mg/dL Creatinine 0.88 (0.72-1.25) mg/dL Est GFR ( Amer) > 60 (> 60) Est GFR (Non-Af Amer) > 60 (> 60) BUN/Creatinine Ratio 28 H (6-26) Glucose 347 H (70-99) mg/dL Calculated Osmolality 288 (280-300) Lactic Acid 2.8 H (0.5-2.2) mmol/L Calcium 10.4 (8.6-10.8) mg/dL Magnesium 2.5 (1.6-2.6) mg/dL Total Bilirubin 0.6 (0.2-1.2) mg/dL Direct Bilirubin 0.2 (0.0-0.5) mg/dL Indirect Bilirubin 0.4 (0.0-1.2) mg/dL AST 25 (5-34) Units/L ALT 24 (0-55) Units/L Alkaline Phosphatase 120 (38-126) Units/L Troponin I (0-0.03) ng/mL Serum Total Protein 9.1 H (6.0-8.3) g/dL Albumin 3.7 (3.5-5.0) g/dL Globulin 5.4 H (2.4-3.5) g/dL Albumin/Globulin Ratio 0.7 L (1.1-2.2) Urine Color (Yellow) Urine Clarity (Clear) Urine pH (5.0-8.0) pH Units Ur Specific [place] (1.010-1.025) Urine Protein (Neg-Trace) mg/dL Urine Glucose (UA) (Normal) mg/dL Urine Ketones (Negative) mg/dL Urine Blood (Negative) Urine Nitrite (Negative) Urine Bilirubin (Negative) Urine Urobilinogen (Normal) mg/dL Ur Leukocyte Esterase (Negative) Urine Microscopic RBC (0-3) per hpf Urine Microscopic WBC (0-3) per hpf Triple Phos Crystals Urine Bacteria (None-Few) per hpf Ur Culture Indicated? (NO) 10/09/16 10/09/16 10/09/16 Range/Units 20:03 20:10 20:36 WBC (4.3-11.1) K/mcL RBC (4.19-5.50) M/mcL Hgb (12.9-16.9) g/dL Hct (37.5-50.1) % MCV (83.0-100.0) fL MCH (28.0-33.3) pg MCHC (31.6-35.5) g/dL RDW (11.5-14.5) % Plt Count (140-400) K/mcL MPV (9.4-12.4) fL Immature Gran % (0-4) % Seg Neutrophils % % Lymphocytes % % Monocytes % % Eosinophils % % Basophils % % Neutrophils # (1.6-8.9) K/mcL Lymphocytes # (0.6-4.6) K/mcL Monocytes # (0.0-1.3) K/mcL Eosinophils # (0.0-0.6) K/mcL Basophils # (0.0-0.2) K/mcL PT (9.4-12.1) Seconds INR APTT (26.0-36.0) Seconds ABG pH (7.32-7.45) pH Units ABG pCO2 (35-45) mmHg ABG pO2 (85-104) mmHg ABG HCO3 (21-27) mEQ/L ABG Total CO2 (20-26) mEq/L ABG O2 Saturation (95-98) % ABG Base Excess (-2.0 to 3.0) mEq/L Blood Gas Modality Inspired O2 % Sodium (136-145) mEq/L Potassium (3.5-4.5) mEq/L Chloride (98-109) mEq/L Carbon Dioxide (19-29) mEq/L BUN (8-26) mg/dL Creatinine (0.72-1.25) mg/dL Est GFR ( Amer) (> 60) Est GFR (Non-Af Amer) (> 60) BUN/Creatinine Ratio (6-26) Glucose (70-99) mg/dL Calculated Osmolality (280-300) Lactic Acid 2.2 (0.5-2.2) mmol/L Calcium (8.6-10.8) mg/dL Magnesium (1.6-2.6) mg/dL Total Bilirubin (0.2-1.2) mg/dL Direct Bilirubin (0.0-0.5) mg/dL Indirect Bilirubin (0.0-1.2) mg/dL AST (5-34) Units/L ALT (0-55) Units/L Alkaline Phosphatase (38-126) Units/L Troponin I 0.02 (0-0.03) ng/mL Serum Total Protein (6.0-8.3) g/dL Albumin (3.5-5.0) g/dL Globulin (2.4-3.5) g/dL Albumin/Globulin Ratio (1.1-2.2) Urine Color Yellow (Yellow) Urine Clarity Cloudy A (Clear) Urine pH 8.5 H (5.0-8.0) pH Units Ur Specific [place] 1.024 (1.010-1.025) Urine Protein 100 H (Neg-Trace) mg/dL Urine Glucose (UA) 500 H (Normal) mg/dL Urine Ketones Trace H (Negative) mg/dL Urine Blood Moderate H (Negative) Urine Nitrite Positive A (Negative) Urine Bilirubin Negative (Negative) Urine Urobilinogen Normal (Normal) mg/dL Ur Leukocyte Esterase Moderate H (Negative) Urine Microscopic RBC 0-3 (0-3) per hpf Urine Microscopic WBC 5-15 H (0-3) per hpf Triple Phos Crystals Present Urine Bacteria Moderate H (None-Few) per hpf Ur Culture Indicated? YES A (NO) 10/09/16 10/09/16 Range/Units 20:49 21:25 WBC (4.3-11.1) K/mcL RBC (4.19-5.50) M/mcL Hgb (12.9-16.9) g/dL Hct (37.5-50.1) % MCV (83.0-100.0) fL MCH (28.0-33.3) pg MCHC (31.6-35.5) g/dL RDW (11.5-14.5) % Plt Count (140-400) K/mcL MPV (9.4-12.4) fL Immature Gran % (0-4) % Seg Neutrophils % % Lymphocytes % % Monocytes % % Eosinophils % % Basophils % % Neutrophils # (1.6-8.9) K/mcL Lymphocytes # (0.6-4.6) K/mcL Monocytes # (0.0-1.3) K/mcL Eosinophils # (0.0-0.6) K/mcL Basophils # (0.0-0.2) K/mcL PT 14.4 H (9.4-12.1) Seconds INR 1.3 APTT 27.0 (26.0-36.0) Seconds ABG pH 7.23 L (7.32-7.45) pH Units ABG pCO2 81 H* (35-45) mmHg ABG pO2 73 L (85-104) mmHg ABG HCO3 33.9 H (21-27) mEQ/L ABG Total CO2 36.4 H (20-26) mEq/L ABG O2 Saturation 91 L (95-98) % ABG Base Excess 2.8 (-2.0 to 3.0) mEq/L Blood Gas Modality [place] Inspired O2 40 % Sodium (136-145) mEq/L Potassium (3.5-4.5) mEq/L Chloride (98-109) mEq/L Carbon Dioxide (19-29) mEq/L BUN (8-26) mg/dL Creatinine (0.72-1.25) mg/dL Est GFR ( Amer) (> 60) Est GFR (Non-Af Amer) (> 60) BUN/Creatinine Ratio (6-26) Glucose (70-99) mg/dL Calculated Osmolality (280-300) Lactic Acid (0.5-2.2) mmol/L Calcium (8.6-10.8) mg/dL Magnesium (1.6-2.6) mg/dL Total Bilirubin (0.2-1.2) mg/dL Direct Bilirubin (0.0-0.5) mg/dL Indirect Bilirubin (0.0-1.2) mg/dL AST (5-34) Units/L ALT (0-55) Units/L Alkaline Phosphatase (38-126) Units/L Troponin I (0-0.03) ng/mL Serum Total Protein (6.0-8.3) g/dL Albumin (3.5-5.0) g/dL Globulin (2.4-3.5) g/dL Albumin/Globulin Ratio (1.1-2.2) Urine Color (Yellow) Urine Clarity (Clear) Urine pH (5.0-8.0) pH Units Ur Specific [place] (1.010-1.025) Urine Protein (Neg-Trace) mg/dL Urine Glucose (UA) (Normal) mg/dL Urine Ketones (Negative) mg/dL Urine Blood (Negative) Urine Nitrite (Negative) Urine Bilirubin (Negative) Urine Urobilinogen (Normal) mg/dL Ur Leukocyte Esterase (Negative) Urine Microscopic RBC (0-3) per hpf Urine Microscopic WBC (0-3) per hpf Triple Phos Crystals Urine Bacteria (None-Few) per hpf Ur Culture Indicated? (NO) - EKG Data EKG attestation: Yes I reviewed and interpreted this EKG. EKG results narrative: Sinus tachycardia 114 with left axis deviation. Normal intervals. No ST elevation or depression. Nonspecific diffuse T wave changes. Normal EKG available. Attestation Statement - Attestation Attestation: I, Santiago Major, examined this patient and my medical decision-making was reviewed with the DECORATING SUPERVISOR/PA/Advanced Practice Nurse/Resident Physician. I agree with the documented findings, disposition and treatment plan as described except to the extent set forth below. 51-year-old male presents with concerns of fever, weakness and concerns of urinary tract infection. Patient states he has a chronic indwelling Martínez and has had multiple urinary tract infections in the past. He reports the fever of 104 at home. Initial evaluation the patient is diaphoretic, febrile, and reports mild tenderness to palpation of the suprapubic area. His urine is cloudy and foul-smelling. He has a significant leukocytosis. Patient initially started on when however he has a previous urine culture which shows resistance to this. In result the patient was switched to Zosyn will be admitted to the hospital for further evaluation and care of likely urosepsis.
[2016-10-09] MEDS ORDERED: Piperacillin/Tazobactam 4.5 GM in D5% in Water (Mini-Bag+) 100 ML IVPB ONE (19:45)
[2016-10-09 20:14] LABS: Basophils # 0.1 K/mcL (0.0-0.2); Basophils % 0.3 %; Eosinophils % 0.1 %; Hemoglobin 19.8 g/dL (12.9-16.9); Immature Granulocytes % 0.6 % (0-4); Lymphocytes # 0.7 K/mcL (0.6-4.6); Lymphocytes % 3.1 %; Mean Corpuscular HGB Conc 32.7 g/dL (31.6-35.5); Mean Corpuscular Hemoglobin 31.9 pg (28.0-33.3); Mean Corpuscular Volume 97.7 fL (83.0-100.0); Mean Platelet Volume 11.2 fL (9.4-12.4); Monocytes # 1.6 K/mcL (0.0-1.3); Neutrophils # 19.8 K/mcL (1.6-8.9); Platelet Count 160 K/mcL (140-400); Red Cell Distribution Width 14.2 % (11.5-14.5); Segmented Neutrophils % 88.9 %
[2016-10-09 20:15] LABS: Hematocrit 60.6 % (37.5-50.1)
[2016-10-09 20:29] LABS: Alanine Aminotransferase 24 Units/L (0-55); Albumin 3.7 g/dL (3.5-5.0); Albumin/Globulin Ratio 0.7 (1.1-2.2); Alkaline Phosphatase 120 Units/L (38-126); Aspartate Amino Transferase 25 Units/L (5-34); BUN/Creatinine Ratio 28 (6-26); Bilirubin,Direct 0.2 mg/dL (0.0-0.5); Bilirubin,Indirect 0.4 mg/dL (0.0-1.2); Bilirubin,Total 0.6 mg/dL (0.2-1.2); Blood Urea Nitrogen 25 mg/dL (8-26); Calcium 10.4 mg/dL (8.6-10.8); Carbon Dioxide 28 mEq/L (19-29); Chloride 88 mEq/L (98-109); Globulin 5.4 g/dL (2.4-3.5); Glucose 347 mg/dL (70-99); Magnesium 2.5 mg/dL (1.6-2.6); Osmolality,Calculated 288 (280-300); Potassium 4.9 mEq/L (3.5-4.5); Sodium 130 mEq/L (136-145); Total Protein 9.1 g/dL (6.0-8.3); eGFR For African Americans > 60 (> 60); eGFR For Non-African Americans > 60 (> 60)
[2016-10-09 20:50] LABS: Bilirubin,Urine Negative (Negative); Blood,Urine Moderate (Negative); Clarity,Urine Cloudy (Clear); Color,Urine Yellow (Yellow); Glucose,Urine (UA) 500 mg/dL (Normal); Ketones,Urine Trace mg/dL (Negative); Leukocyte Esterase,Urine Moderate (Negative); Nitrite,Urine Positive (Negative); PH,Urine 8.5 pH Units (5.0-8.0); Protein,Urine 100 mg/dL (Neg-Trace); Specific Gravity,Urine 1.024 (1.010-1.025); Urobilinogen,Urine Normal (Normal)
[2016-10-09 21:00] LABS: INR 1.3; Prothrombin Time 14.4 Seconds (9.4-12.1)
[2016-10-09 21:08] LABS: RBC,Urine 0-3 per hpf (0-3)
[2016-10-09 21:09] LABS: Bacteria,Urine Moderate per hpf (None-Few); Triple Phosphate Crystal,Urine Present
[2016-10-09 21:34] LABS: ABG Base Excess 2.8 mEq/L (-2.0 to 3.0); ABG HCO3 33.9 mEQ/L (21-27); ABG Oxygen Saturation 91 % (95-98); ABG PH 7.23 pH Units (7.32-7.45); ABG PO2 73 mmHg (85-104); ABG TCO2 36.4 mEq/L (20-26)
[2016-10-09 21:37] LABS: ABG PCO2 81 mmHg (35-45); Blood Gas FiO2 40 %
--- NOTE | 2016-10-10 02:32 | Internal Med History&Physical ---
Date of Encounter: 10/10/16 Time of Encounter: 02:00 Assessment and Plan (1) Sepsis Current visit: Yes Status: Acute Likely due to urinary tract infection. Patient had elevated leukocytes, tachycardic and elevated lactate level. Patient is here IV fluids and intravenous antibiotics. Lactate level is improving. Qualifiers: Sepsis type: sepsis due to unspecified organism Qualified Code(s): A41.9 - Sepsis, unspecified organism (2) UTI (urinary tract infection) Current visit: Yes Status: Acute Patient had prior urinary tract infections with multidrug resistant organisms, as listed earlier. Currently started on Zosyn empirically. Titrate antibiotics based on cultures. Consider infectious disease consult for further advice Qualifiers: Urinary tract infection type: catheter-associated UTI Indwelling urinary catheter type: cystostomy catheter Encounter type: initial encounter Qualified Code(s): T83.510A - Infection and inflammatory reaction due to cystostomy catheter, initial encounter; N39.0 - Urinary tract infection, site not specified (3) Atelectasis of both lungs Current visit: Yes Status: Acute Start incentive spirometer (4) Diabetes mellitus Current visit: Yes Status: Acute Start sliding scale insulin. Pt is on PEG tube feeds - Nutrition consult to resume his tube feeds. Qualifiers: Diabetes mellitus type: type 2 Diabetes mellitus complication status: with unspecified complications Diabetes mellitus terminal make up operator insulin use: without terminal make up operator use Qualified Code(s): E11.8 - Type 2 diabetes mellitus with unspecified complications (5) DVT prophylaxis Current visit: Yes Status: Acute Sub cutaneous heparin Internal Medicine - H&P: HPI Chief complaint: Fever Admitted From: Emergency Dept Plans for Post Hospital Care: Home History of present illness: Mr. Jaramillo is a 51 year old male with medical history significant for paraplegia since 2009, neurogenic blader s/p suprapubic catheter placement ( Apparently catheter was changed earlier this month), s/p PEG tube placement, h/ o decubitus ulcers. He had multiple prior urinary tract infections, with urine culture from 07/30/2016 showing Pseudomonas, urine culture from 2016 showing Klebsiella pneumonia; urine culture from 05/10 showing ESBL positive Proteus mirabilis (sensitive to Zosyn). He lives at home with home health. He presented to the emergency department with history of fever, with temperature 104F at home. He denies abdominal pain, chest pain, shortness of breath, cough, expectoration. He had an episode of vomiting after coming to the hospital. He denies headache or blurry vision. He was evaluated in the emergency department and was thought to have urinary tract infection and started on Zosyn and admitted to the hospitalist service, for further management. Past Med Surg Social Fam HX - Past Medical History Medical history: diabetes, GERD, hyperlipidemia, hypertension, other Psychiatric history: bipolar, schizophrenia - Past Surgical History Surgical History: other - Social History Smoking Status: Current every day smoker Smokeless Tobacco Status: No Alcohol use: none Drug use: none - Family History Mother Adopted: No Family Member Ethnicity: Non- Living Status: Hx Family Cardiac Disorders: No Hx Family Respiratory Disorders: No Hx Family Cancer: No Hx Family GI Disorders: No Hx Family Endocrine Disorder: No Hx Family Neuromuscular Disorders: No Hx Family Neurologic Disorders: No Hx Family HEENT Disorders: No Hx Family Autoimmune Disorders: No Internal Medicine - H&P: Meds Ascorbic Acid [Vitamin C] 500 mg PO DAILY 03/20/15 [History] Carvedilol 6.25 mg GTUBE DAILY 03/20/15 [History] Loratadine [Claritin] 10 mg GTUBE DAILY 03/20/15 [History] Metformin HCl [Glucophage] 1,000 mg PO BID 03/20/15 [History] Ondansetron HCl [Zofran] 4 mg PO Q6HR PRN #30 tablet 10/04/15 [Rx] Quetiapine Fumarate [Seroquel] 400 mg GTUBE HS 30 Days 10/29/15 [Rx] risperiDONE [RisperDAL] 0.5 mg PO BID #30 tablet 10/29/15 [Rx] Albuterol Sulfate [Ventolin Hfa] 2 puff IH Q4H PRN 11/02/15 [History] clonazePAM [Klonopin] 1 mg GTUBE TID PRN #10 tablet 11/06/15 [Rx] Cyanocobalamin (Vitamin B-12) [Vitamin B-12] 500 mcg PO DAILY 05/10/16 [History] Docusate Sodium [Docu Liquid] 100 mg PO BID 05/10/16 [History] Oxycodone HCl 15 mg PO Q6H PRN 05/10/16 [History] Ranitidine HCl [Acid Instrument/Control Technician] 150 mg PO DAILY 05/10/16 [History] Sennosides [Senna] 2 ml PO HS 05/10/16 [History] Valproic Acid Oral Soln [Depakene Oral Soln] 250 mg PO TID 05/10/16 [History] Butalb/Acetaminophen/Caffeine [Esgic 50-325-40 mg Tablet] 1 tab PO TID PRN 07/16 [History] Morphine Sulfate [Morphine Oral Solution] 20 mg PO Q4H PRN 07/16/16 [History] Pregabalin [Lyrica] 150 mg PO BID 07/16/16 [History] Promethazine [Phenergan] 25 mg PO TID PRN 07/16/16 [History] Doxycycline 100 mg PO BID #14 capsule 07/30/16 [Rx] Oxybutynin [Ditropan] 5 mg GTUBE TID 07/30/16 [History] Polyethylene Glycol 3350 [MiraLAX Powder Bulk 17.9 Oz] 1 scoop PO QID PRN #30 gm 07/30/16 [Rx] Gxhskopkakpn-Zmvv-Vxdravlf,Iso [Zosyn 3.375 gm/50 ml Galaxy] 3.375 gm IV QID # 20 froz.piggy 08/02/16 [Rx] Allergies azithromycin [From Zithromax] Allergy (Verified 10/10/16 00:08) Anaphylaxis linezolid [From Zyvox] Allergy (Verified 10/10/16 00:08) Anaphylaxis All Systems PM: A 10-system review of systems was performed and is negative for pertinent findings except as documented above in the HPI. - Constitutional Vitals: Temp Pulse Resp BP Pulse Ox 99.2 F 89 18 154/95 90 10/10/16 01:35 10/10/16 01:35 10/10/16 01:35 10/10/16 01:35 10/10/16 01:35 Exam: General: Not in acute distress at the time of my evaluation HEENT: Oral mucosa is moist. No conjunctival palor or scleral icterus Neck: No obvious neck swellings Lungs: Clear to auscultation Cardiac: Regular rate and rhythm. No significant murmurs Abdomen: Soft, non tender. Bowel sounds present. PEG tube and suprapubic cath in place Genitourinary: suprapubic cath in place Neurological: Alert and oriented. Known paraplegia Psych: Not aggressive or agitated Extremities: no significant leg edema Skin: No generalized rash Internal Med - H&P Results - Labs CBC & Chem 7: 10/10/16 07:10 10/10/16 07:10 - Impressions ITS Impressions Chest X-Ray 10/09/16 19:07 IMPRESSION: Low lung volumes. Stable bibasilar atelectasis. No acute cardiopulmonary disease. D/ / Roni Alston MD / Roni Alston MD Interpreting Provider: Roni Alston MD
[2016-10-10] MEDS ORDERED: Naloxone 0.4 MG/ML INJ IVP PRN (02:33)
[2016-10-10] MEDS ORDERED: Pantoprazole 40 MG VIAL IVP ONE (02:35)
[2016-10-10] MEDS ORDERED: *HR* Morphine 2 MG/ML SYRINGE IVP ONE (02:41)
[2016-10-10] MEDS: 0.9 % Sodium Chloride 1,000 ML IVC SCH ×3 (03:47→21:11)
[2016-10-10] MEDS: *HR* Heparin 5,000 UNIT/ML VIAL SQ SCH ×2 (05:59→17:17)
[2016-10-10 07:17] LABS: VBG HCO3 37.2 mEq/L (21-27); VBG PH 7.4 pH Units (7.32-7.42)
[2016-10-10] MEDS ORDERED: D5% in Water 1,000 ML IVC PRN (07:19)
[2016-10-10] MEDS ORDERED: Dextrose Gel 15 GM PO PRN ×2 (07:19)
[2016-10-10] MEDS ORDERED: *HR* Dextrose 50 % in Water (Syg) 50 ML SYRINGE IVP PRN (07:19)
[2016-10-10 07:28] LABS: BUN/Creatinine Ratio 22 (6-26); Calcium 9.4 mg/dL (8.6-10.8); Carbon Dioxide 32 mEq/L (19-29); Chloride 99 mEq/L (98-109); Glucose 232 mg/dL (70-99); Osmolality,Calculated 294 (280-300); Potassium 4.4 mEq/L (3.5-4.5); eGFR For African Americans > 60 (> 60); eGFR For Non-African Americans > 60 (> 60)
[2016-10-10 07:29] LABS: Blood Urea Nitrogen 14 mg/dL (8-26); Sodium 138 mEq/L (136-145)
[2016-10-10 07:36] LABS: Basophils % 0.2 %; Eosinophils % 0.3 %; Hematocrit 52.6 % (37.5-50.1); Hemoglobin 17.7 g/dL (12.9-16.9); Immature Granulocytes % 0.8 % (0-4); Lymphocytes # 1.1 K/mcL (0.6-4.6); Lymphocytes % 6.8 %; Mean Corpuscular HGB Conc 33.7 g/dL (31.6-35.5); Mean Corpuscular Hemoglobin 33.1 pg (28.0-33.3); Mean Corpuscular Volume 98.3 fL (83.0-100.0); Mean Platelet Volume 11.3 fL (9.4-12.4); Monocytes # 1.2 K/mcL (0.0-1.3); Monocytes % 7.8 %; Neutrophils # 13.3 K/mcL (1.6-8.9); Platelet Count 128 K/mcL (140-400); Red Blood Count 5.35 M/mcL (4.19-5.50); Red Cell Distribution Width 14.6 % (11.5-14.5); Segmented Neutrophils % 84.1 %
[2016-10-10] MEDS: Piperacillin/Tazobactam 3.375 GM in D5% in Water (Mini-Bag+) 100 ML IVPB SCH ×2 (07:55→17:18)
[2016-10-10] MEDS: Insulin LISPRO 300 UNITS/3 ML VIAL SQ SCH ×4 (07:55→22:54)
[2016-10-10] MEDS ORDERED: Ondansetron ODT 4 MG TAB.RAPDIS PO PRN (08:08)
[2016-10-10] MEDS: Docusate Oral Soln 100 MG/10 ML UDC PO SCH ×2 (10:31→20:21)
[2016-10-10] MEDS: Ascorbic Acid 500 MG TABLET PO SCH (10:31)
[2016-10-10] MEDS: Valproic Acid Oral Soln 250 MG/5 ML UDC PO SCH ×3 (10:31→20:21)
[2016-10-10] MEDS: risperiDONE 0.25 MG TABLET PO SCH ×2 (10:31→20:22)
[2016-10-10] MEDS: Lactobacillus 1 EACH CAP.SPRINK PO SCH ×2 (10:32→20:21)
[2016-10-10] MEDS: Acetaminophen/Butalbital/CaffeineTABLET PO PRN (10:32)
[2016-10-10] MEDS: Pregabalin 75 MG CAPSULE PO SCH ×2 (10:32→20:22)
[2016-10-10] MEDS: Cyanocobalamin (B-12) 1,000 MCG TABLET PO SCH (10:32)
--- NOTE | 2016-10-10 11:46 | Internal Med Progress Note ---
Date of Encounter: 10/10/16 Time of Encounter: 11:00 - Assessment and plan (1) Sepsis Current Visit: Yes Status: Acute Assessment and plan: Complicated UTI in the setting of a patient with paraplegia and a suprapubic catheter. Gram-negative rods isolated in the urine. We will continue with Zosyn at this point. Adjust therapy according to cultures. Patient initially had a leukocytosis of 22.2. Lactic acid was 2.2, last lactic acid level is 0.8. Today his leukocytosis decreased to 15.8, will continue monitoring the patient closely. The patient is at high risk and developing complications such as sepsis in the setting of his condition of poor nutrition and paraplegia with a concomitant urinary tract infection. Patient was febrile upon admission. In light of multiple infections, I am going to request a consultation with our infectious disease team for further recommendations. DVT prophylaxis with heparin Qualifiers: Sepsis type: sepsis due to unspecified organism Qualified Code(s): A41.9 - Sepsis, unspecified organism (2) UTI (urinary tract infection) Current Visit: Yes Status: Acute Assessment and plan: Patient with multiple admissions due to catheter associated UTI. Continue with IV Zosyn now, follow urine cultures and adjust antibiotic therapy accordingly. Follow input of our infectious disease team. Qualifiers: Urinary tract infection type: catheter-associated UTI Indwelling urinary catheter type: cystostomy catheter Encounter type: initial encounter Qualified Code(s): T83.510A - Infection and inflammatory reaction due to cystostomy catheter, initial encounter; N39.0 - Urinary tract infection, site not specified (3) DVT prophylaxis Current Visit: Yes Status: Acute Assessment and plan: heparin. (4) Atelectasis of both lungs Current Visit: Yes Status: Acute Assessment and plan: Continue with incentive spirometry. (5) Diabetes mellitus Current Visit: Yes Status: Acute Assessment and plan: Continue monitoring his fingersticks, insulin therapy. Qualifiers: Diabetes mellitus type: type 2 Diabetes mellitus complication status: with unspecified complications Diabetes mellitus termite renewal inspector insulin use: without termite renewal inspector use Qualified Code(s): E11.8 - Type 2 diabetes mellitus with unspecified complications - Subjective Interval history: This is my first encounter with the patient during this admission. The patient is very pleasant, he denies any complaints at this point. I have taken care of this patient in prior admissions. He typically has urinary tract infections and received IV antibiotics. - Constitutional Vitals: Temp Pulse Resp BP Pulse Ox 98.0 F 74 18 131/82 96 10/10/16 11:32 10/10/16 11:32 10/10/16 11:32 10/10/16 11:32 10/10/16 11:32 General appearance: Present: mild distress, A&O X 3, pleasant - Head Head exam: Present: atraumatic, normocephalic - Eye Eye exam: Present: PERRL, conjuntiva pink, sclera anicteric Pupils: Present: PERRL - Neck Neck exam general surgery: Present: supple, trachea midline. Absent: lymphadenopathy - Respiratory Respiratory exam: Present: CTAB. Absent: accessory muscle use, rales, rhonchi, wheezes - Cardiovascular Cardiovascular exam: Present: RRR, +S1, +S2. Absent: diastolic murmur, gallop, rubs, systolic murmur - GI/Abdominal GI/Abdominal exam: Present: normal bowel sounds, soft, no peritoneal signs. Absent: distended, tenderness - Extremities Exam Extremities exam: Present: warm, radial pulses palpable and symetrical. Absent : calf tenderness, cyanotic, pedal edema - Neurological Exam Neurological exam: Present: oriented X3. Absent: pronater drift, facial droop, speech deficit - Skin Skin exam: Present: dry, intact Internal Medicine: Result - Labs CBC & Chem 7: 10/10/16 07:10 10/10/16 07:10 Labs: Short CBC 10/10/16 Range/Units 07:10 WBC 15.8 H (4.3-11.1) K/mcL Hgb 17.7 H D (12.9-16.9) g/dL Hct 52.6 H (37.5-50.1) % Plt Count 128 L (140-400) K/mcL Neutrophils # 13.3 H (1.6-8.9) K/mcL BMP 10/10/16 07:10 Sodium 138 D Potassium 4.4 Chloride 99 Carbon Dioxide 32 H BUN 14 D Creatinine 0.63 L Glucose 232 H Calcium 9.4 - ABG Interpretation ABG results: ABG ABG pH 7.23 pH Units (7.32-7.45) L 10/09/16 21:25 ABG pCO2 81 mmHg (35-45) H* 10/09/16 21:25 ABG pO2 73 mmHg (85-104) L 10/09/16 21:25 ABG O2 Saturation 91 % (95-98) L 10/09/16 21:25 PT/INR, D-dimer PT 14.4 Seconds (9.4-12.1) H 10/09/16 20:49 Consult Discharge Plan - Plan Referrals: NO,PCP [Primary Care Provider] -
[2016-10-10] MEDS: *HR* Morphine Soln 10 MG/5 ML UDC PO PRN ×2 (17:17→21:18)
--- NOTE | 2016-10-10 20:42 | Electrocardiograph Report ---
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
[2016-10-11] MEDS: Nicotine 21 MG PATCH.TD24 TD SCH ×2 (00:34→10:39)
[2016-10-11] MEDS: Piperacillin/Tazobactam 3.375 GM in D5% in Water (Mini-Bag+) 100 ML IVPB SCH ×4 (00:35→23:09)
[2016-10-11] MEDS: *HR* Morphine Soln 10 MG/5 ML UDC PO PRN ×4 (01:40→20:07)
[2016-10-11] MEDS: *HR* Heparin 5,000 UNIT/ML VIAL SQ SCH ×2 (07:44→17:13)
[2016-10-11 08:20] LABS: Basophils % 0.4 %; Eosinophils # 0.4 K/mcL (0.0-0.6); Eosinophils % 5.6 %; Immature Granulocytes % 0.3 % (0-4); Immature Platelets 5.8 % (1.1-6.1); Lymphocytes # 1.4 K/mcL (0.6-4.6); Lymphocytes % 19.5 %; Mean Corpuscular Hemoglobin 31.9 pg (28.0-33.3); Mean Corpuscular Volume 99.6 fL (83.0-100.0); Mean Platelet Volume 10.6 fL (9.4-12.4); Monocytes # 0.8 K/mcL (0.0-1.3); Monocytes % 11.3 %; Neutrophils # 4.5 K/mcL (1.6-8.9); Platelet Count 119 K/mcL (140-400); Red Blood Count 4.92 M/mcL (4.19-5.50); Red Cell Distribution Width 14.1 % (11.5-14.5); Segmented Neutrophils % 62.9 %
[2016-10-11 08:24] LABS: Hemoglobin 15.7 g/dL (12.9-16.9)
[2016-10-11 08:31] LABS: BUN/Creatinine Ratio 15 (6-26); Blood Urea Nitrogen 10 mg/dL (8-26); Calcium 9.6 mg/dL (8.6-10.8); Carbon Dioxide 34 mEq/L (19-29); Chloride 102 mEq/L (98-109); Glucose 147 mg/dL (70-99); Osmolality,Calculated 294 (280-300); Potassium 4.5 mEq/L (3.5-4.5); Sodium 141 mEq/L (136-145); eGFR For African Americans > 60 (> 60); eGFR For Non-African Americans > 60 (> 60)
[2016-10-11] MEDS: Valproic Acid Oral Soln 250 MG/5 ML UDC PO SCH ×3 (10:36→20:07)
[2016-10-11] MEDS: Cyanocobalamin (B-12) 1,000 MCG TABLET PO SCH (10:36)
[2016-10-11] MEDS: Ascorbic Acid 500 MG TABLET PO SCH (10:36)
[2016-10-11] MEDS: Lactobacillus 1 EACH CAP.SPRINK PO SCH ×2 (10:36→20:09)
[2016-10-11] MEDS: Docusate Oral Soln 100 MG/10 ML UDC PO SCH ×2 (10:36→20:07)
[2016-10-11] MEDS: risperiDONE 0.25 MG TABLET PO SCH ×2 (10:36→20:09)
[2016-10-11] MEDS: Pregabalin 75 MG CAPSULE PO SCH ×2 (10:37→20:08)
[2016-10-11] MEDS: Insulin LISPRO 300 UNITS/3 ML VIAL SQ SCH ×4 (14:19→21:06)
[2016-10-11] MEDS: 0.9 % Sodium Chloride 1,000 ML IVC SCH (14:20)
--- NOTE | 2016-10-11 15:59 | Infectious Disease Consult ---
Date of Encounter: 10/11/16 Time of Encounter: 15:56 Assessment and Plan (1) Sepsis Status: Acute Assessment and plan: The patient had three SIRS criteria on admission. Likely secondary to UTI. Improved. WBC has normalized. Tachycardia has resolved. The patient has been afebrile x 24 hours. Blood cultures drawn 10/09/16 are NGTD x 2 sets. Qualifiers: Sepsis type: sepsis due to unspecified organism Qualified Code(s): A41.9 - Sepsis, unspecified organism (2) UTI (urinary tract infection) Status: Acute Assessment and plan: CAUTI. Causative organism unclear. Urine culture shows two different GNR. Final ID and sensitivities are pending. Review of the medical record reveals that the patient has had multiple urinary tract infections over the past few years. Causative organisms in the past include Pseudomonas, K. pneumoniae, and ESBL Proteus mirabilis. Because the patient has had several different causative organisms, it is unlikely that the patient is colonized. This is likely a re-infection rather than a relapse/ treatment failure. Likely secondary to the patient's neurogenic bladder and chronic indwelling mireles catheter. Consider urology consult as an outpatient to evaluate for additional possible causes. Switch out mireles catheter if not already done during this hospitalization. Continue Zosyn 3.375 grams IV Q8H. Await culture results. Duration of treatment depends on the clinical picture. Monitor renal function and dose-adjust antibiotics. Qualifiers: Urinary tract infection type: catheter-associated UTI Indwelling urinary catheter type: indwelling urethral catheter Encounter type: initial encounter Qualified Code(s): T83.511A - Infection and inflammatory reaction due to indwelling urethral catheter, initial encounter; N39.0 - Urinary tract infection , site not specified (3) Thrombocytopenia Status: Acute Assessment and plan: Etiology unclear. No evidence of active bleeding. Continue to trend. Management per the primary team. (4) Neurogenic bladder Status: Acute Assessment and plan: Secondary to paraplegia. Continue chronic indwelling mireles catheter. (5) Paraplegia Status: Acute Assessment and plan: Secondary to fall in 2010. Continue pressure-alleviating strategies. (6) Diabetes mellitus Status: Acute Assessment and plan: Recommend aggressive glucose monitoring and control to promote wound healing. Management per the primary team. Qualifiers: Diabetes mellitus type: type 2 Diabetes mellitus complication status: with unspecified complications Diabetes mellitus snf insulin use: without snf use Qualified Code(s): E11.8 - Type 2 diabetes mellitus with unspecified complications Infectious Disease HPI - Data of Consult Patient: new to practice Consult date: 10/11/16 Requesting Physician: Rj Aguirre Primary Care Provider: PCP NO - Consult Narrative Reason for consult: Recurrent UTI History of present illness: Mr. Jaramillo is a 51 year old male with a past medical history of diabetes, GERD , hyperlipidemia, hypertension, the lesion secondary to a fall, and neurogenic bladder with chronic indwelling Mireles catheter. The patient was admitted to the hospital October 09 for fever and UTI. We are consulted October 11 for further evaluation and treatment recommendations regarding recurrent UTI. Patient's a 48-year-old male past medical history as stated above. The patient states that on the day of admission he spiked fever to 104 and had noticed that his urine had become cloudy over the past couple of days prior to presentation. Upon arrival, the patient had a fever 101 and was tachycardic. Laboratory studies revealed a white blood cell count 22.2 thousand with neutrophilic predominance. Lactic acid was elevated at 2.8. Urinalysis was positive for pyuria and specimen was sent for culture is showing 2 gram-negative rods. Blood cultures were obtained 2 sets are currently no growth to date. Chest x-ray was obtained as well as negative. The patient was started on empiric IV Zosyn based on previous culture results. We've been asked to evaluate and make further recommendations. During my exam today, the patient endorses history as stated above. Since admission, the patient has been afebrile. His white blood cell count has normalized. His lactic acidosis has resolved. The patient endorses a history as stated above. He reports some fevers, but denies any chills or rigors. He denies any headache or neck pain. He denies any chest pain, shortness of breath , or cough. He does report some mild suprapubic tenderness upon arrival, but states this has resolved. He denies any nausea, vomiting, diarrhea, constipation. He denies pain in any of his extremities. He denies any oral thrush or new skin lesions. He is unsure when his Mireles catheter was changed last. CC: Rj Aguirre Past Med Surg Social Fam HX - Past Medical History Attestation: Yes The following information was validated with the patient. Source: patient, old records reviewed, nursing notes reviewed Medical history: diabetes, GERD, hyperlipidemia, hypertension, other ( Neurogenic bladder secondary to paraplegia with chronic indwelling Mireles catheter) Psychiatric history: bipolar, schizophrenia - Past Surgical History Surgical History: other (Back surgery 2) - Social History Smoking Status: Current every day smoker Packs per day: 1 Smokeless Tobacco Status: No Alcohol use: none Drug use: none Occupational status: disabled Current living situation: Home Activity Level: Bed bound Recent Out of Country Travel Within the Last 8 Weeks: No Exposure or Possible Exposure to Illness During Travel: No - Family History Mother Adopted: No Family Member Ethnicity: Non- Living Status: Hx Family Cardiac Disorders: No Hx Family Respiratory Disorders: No Hx Family Cancer: No Hx Family GI Disorders: No Hx Family Endocrine Disorder: No Hx Family Neuromuscular Disorders: No Hx Family Neurologic Disorders: No Hx Family HEENT Disorders: No Hx Family Autoimmune Disorders: No Infectious Disease-CN:Meds Ascorbic Acid [Vitamin C] 500 mg PO DAILY 03/20/15 [History] Carvedilol 6.25 mg GTUBE DAILY 03/20/15 [History] Loratadine [Claritin] 10 mg GTUBE DAILY 03/20/15 [History] Metformin HCl [Glucophage] 1,000 mg PO BID 03/20/15 [History] Ondansetron HCl [Zofran] 4 mg PO Q6HR PRN #30 tablet 10/04/15 [Rx] Quetiapine Fumarate [Seroquel] 400 mg GTUBE HS 30 Days 10/29/15 [Rx] risperiDONE [RisperDAL] 0.5 mg PO BID #30 tablet 10/29/15 [Rx] Albuterol Sulfate [Ventolin Hfa] 2 puff IH Q4H PRN 11/02/15 [History] Cyanocobalamin (Vitamin B-12) [Vitamin B-12] 500 mcg PO DAILY 05/10/16 [History] Docusate Sodium [Docu Liquid] 100 mg PO BID 05/10/16 [History] Oxycodone HCl 15 mg PO Q6H PRN 05/10/16 [History] Ranitidine HCl [Acid Commercial Construction Estimator] 150 mg PO DAILY 05/10/16 [History] Sennosides [Senna] 17.6 mg PO HS 05/10/16 [History] Valproic Acid Oral Soln [Depakene Oral Soln] 250 mg PO TID 05/10/16 [History] Butalb/Acetaminophen/Caffeine [Esgic 50-325-40 mg Tablet] 1 tab PO TID PRN 07/16 [History] Morphine Sulfate [Morphine Oral Solution] 20 mg PO Q4H PRN 07/16/16 [History] Pregabalin [Lyrica] 150 mg PO BID 07/16/16 [History] Promethazine [Phenergan] 25 mg PO TID PRN 07/16/16 [History] Oxybutynin [Ditropan] 5 mg GTUBE TID 07/30/16 [History] Buspirone HCl [Buspar] 10 mg PO BID 10/10/16 [History] Lisinopril [Zestril] 10 mg PO DAILY 10/10/16 [History] Na Phos,M-B/Na Phos,Di-Ba [Fleet Enema Extra] 230 ml RC DAILY PRN 10/10/16 [ History] Nut.tx.gluc.intoler,Lac-Fr,Soy [Glucerna 1.5 Timoteo] 1 can PO AD 10/10/16 [History] Polyethylene Glycol 3350 [Smoothlax] 17 gm PO DAILY PRN 10/10/16 [History] clonazePAM [Klonopin] 1 mg GTUBE TAPER 10/10/16 [History] Allergies azithromycin [From Zithromax] Allergy (Verified 10/10/16 00:08) Anaphylaxis linezolid [From Zyvox] Allergy (Verified 10/10/16 00:08) Anaphylaxis All systems: reviewed and no additional remarkable complaints except as stated Exam - Constitutional Vitals: Temp Pulse Resp BP Pulse Ox 97.7 F 86 16 143/88 94 10/11/16 11:57 10/11/16 11:57 10/11/16 11:57 10/11/16 11:57 10/11/16 11:57 General appearance: average body habitus, cooperative, no acute distress - Head Head exam: Present: atraumatic, normal inspection, normocephalic - Eye Eye exam: Present: EOMI, normal appearance, PERRL Pupils: Present: normal accommodation - ENT ENT exam: Present: mucous membranes moist - Neck Neck exam: Present: normal inspection - Respiratory Respiratory exam: Present: CTAB. Absent: rales, respiratory distress, rhonchi, wheezes - Cardiovascular Cardiovascular exam: Present: RRR, +S1, +S2 - GI/Abdominal GI/Abdominal exam: Present: normal bowel sounds, soft. Absent: distended, tenderness Additional comments: Mireles catheter noted to be draining cloudy yellow urine. PEG tube noted to the left upper quadrant that is currently clamped. - Extremities Exam Extremities exam: Absent: joint swelling, pedal edema, tenderness Additional comments: Muscle wasting and atrophy noted to the bilateral lower extremities. Paralysis noted to the bilateral lower extremities. Bilateral upper extremity grasps weak , but symmetrical bilaterally. - Neurological Exam Neurological exam: Present: alert, oriented X3. Absent: no focal deficits ( Bilateral lower extremity paralysis noted) - Psychiatric Psychiatric exam: Present: normal affect, normal mood - Skin Skin exam: Present: dry, intact, normal color, warm Infectious Disease CN: Results - Labs CBC & Chem 7: 10/12/16 04:21 10/12/16 04:21 Cultures: Cultures 10/09/16 20:10 Urine Culture - Preliminary Urine,Clean Catch Gram Negative Wan Gram Negative Wan#2 10/09/16 20:29 Blood Culture - Preliminary Peripheral Venipuncture No growth. 10/09/16 20:03 Blood Culture - Preliminary Peripheral Venipuncture No growth. Consult Discharge Plan - Plan Referrals: NO,PCP [Primary Care Provider] - 10/26/16 10:20 am (Please follow up with ) - Attending Attestation I examined this patient and my medical decision-making was reviewed with the BIRD CAGE ASSEMBLER/PA/Advanced Practice Nurse/Resident Physician. I agree with the documented findings, disposition and treatment plan as described except to the extent set forth below. Lia addendum to original report dictated by Brenna Kruger CNP. Please refer to Mike velarde for full details. Patient is a 51-year-old gentleman with extensive past medical history including paraplegia secondary to trauma with neurogenic bladder and indwelling Mireles catheter. Patient presented to the emergency department with fevers. Patient was noted to have a UTI. Patient does have recurrent UTI with previous organisms including ESBL. Patient was admitted with sepsis like picture was started on IV Zosyn. Since admission his fever has resolved and his WBC has normalized. Today patient feels comfortable laying in bed pleasant awake alert oriented eager to go home. We were asked to evaluate the patient and make further recommendations. At this point cultures are still not finalized. Zosyn clearly is working so I will continue present antibiotics. Monitor labs and for drug toxicity. Once cultures are finalized well Will tailor antibiotics accordingly and see if we can give him oral options. Duration of treatment depends on the clinical picture but likely 10-14 days. Patient will continue to have recurrent UTIs because he has an indwelling Mireles catheter. Proper catheter hygiene and replacing catheters in a timely manner might be helpful. Also proper hydration.
[2016-10-11] MEDS ORDERED: *HR* HYDROmorphone (PF) 1 MG/ML SYRINGE IVP ONE (16:03)
--- NOTE | 2016-10-11 16:06 | Internal Med Progress Note ---
Date of Encounter: 10/11/16 Time of Encounter: 11:00 - Assessment and plan (1) Sepsis Current Visit: Yes Status: Acute Assessment and plan: Complicated UTI in the setting of a patient with paraplegia and a suprapubic catheter. Gram-negative rods isolated in the urine. We will continue with Zosyn at this point. Adjust therapy according to cultures. Patient initially had a leukocytosis of 22.2. today wbc is WL. The patient is at high risk and developing complications such as sepsis in the setting of his condition of poor nutrition and paraplegia with a concomitant urinary tract infection. Patient was febrile upon admission. In light of multiple infections, ID was consulted. DVT prophylaxis with heparin Qualifiers: Qualified Code(s): A41.9 - Sepsis, unspecified organism (2) UTI (urinary tract infection) Current Visit: Yes Status: Acute Assessment and plan: Patient with multiple admissions due to catheter associated UTI. Continue with IV Zosyn now, follow urine cultures and adjust antibiotic therapy accordingly. Follow input of our infectious disease team. Qualifiers: Qualified Code(s): T83.510A - Infection and inflammatory reaction due to cystostomy catheter, initial encounter; N39.0 - Urinary tract infection, site not specified (3) DVT prophylaxis Current Visit: Yes Status: Acute Assessment and plan: heparin. (4) Atelectasis of both lungs Current Visit: Yes Status: Acute Assessment and plan: Continue with incentive spirometry. (5) Diabetes mellitus Current Visit: Yes Status: Acute Qualifiers: Qualified Code(s): E11.8 - Type 2 diabetes mellitus with unspecified complications - Subjective Interval history: The patient is very pleasant, he denies any complaints at this point. I have taken care of this patient in prior admissions. He typically has urinary tract infections and received IV antibiotics. no new complaints. - Constitutional Vitals: Temp Pulse Resp BP Pulse Ox 97.7 F 86 16 143/88 94 10/11/16 11:57 10/11/16 11:57 10/11/16 11:57 10/11/16 11:57 10/11/16 11:57 General appearance: Present: mild distress, A&O X 3, pleasant - Head Head exam: Present: atraumatic, normocephalic - Eye Eye exam: Present: PERRL, conjuntiva pink, sclera anicteric Pupils: Present: PERRL - Neck Neck exam general surgery: Present: supple, trachea midline. Absent: lymphadenopathy - Respiratory Respiratory exam: Present: CTAB. Absent: accessory muscle use, rales, rhonchi, wheezes - Cardiovascular Cardiovascular exam: Present: RRR, +S1, +S2. Absent: diastolic murmur, gallop, rubs, systolic murmur - GI/Abdominal GI/Abdominal exam: Present: normal bowel sounds, soft, no peritoneal signs. Absent: distended, tenderness - Extremities Exam Extremities exam: Present: warm, radial pulses palpable and symetrical. Absent : calf tenderness, cyanotic, pedal edema - Neurological Exam Neurological exam: Present: oriented X3. Absent: pronater drift, facial droop, speech deficit - Skin Skin exam: Present: dry, intact Internal Medicine: Result - Labs CBC & Chem 7: 10/11/16 08:14 10/11/16 08:14 Labs: Short CBC 10/11/16 Range/Units 08:14 WBC 7.1 D (4.3-11.1) K/mcL Hgb 15.7 D (12.9-16.9) g/dL Hct 49.0 (37.5-50.1) % Plt Count 119 L (140-400) K/mcL Neutrophils # 4.5 (1.6-8.9) K/mcL BMP 10/11/16 08:14 Sodium 141 Potassium 4.5 Chloride 102 Carbon Dioxide 34 H BUN 10 Creatinine 0.65 L Glucose 147 H Calcium 9.6 - ABG Interpretation ABG results: ABG ABG pH 7.23 pH Units (7.32-7.45) L 10/09/16 21:25 ABG pCO2 81 mmHg (35-45) H* 10/09/16 21:25 ABG pO2 73 mmHg (85-104) L 10/09/16 21:25 ABG O2 Saturation 91 % (95-98) L 10/09/16 21:25 PT/INR, D-dimer PT 14.4 Seconds (9.4-12.1) H 10/09/16 20:49 Consult Discharge Plan - Plan Referrals: NO,PCP [Primary Care Provider] -
[2016-10-12] MEDS: *HR* Morphine Soln 10 MG/5 ML UDC PO PRN ×5 (00:11→19:25)
[2016-10-12] MEDS: 0.9 % Sodium Chloride 1,000 ML IVC SCH ×3 (00:17→18:23)
[2016-10-12] MEDS: *HR* Heparin 5,000 UNIT/ML VIAL SQ SCH ×2 (05:02→16:53)
[2016-10-12 05:07] LABS: Basophils % 0.6 %; Eosinophils # 0.4 K/mcL (0.0-0.6); Eosinophils % 7.3 %; Hematocrit 48.6 % (37.5-50.1); Hemoglobin 16.2 g/dL (12.9-16.9); Immature Granulocytes % 0.4 % (0-4); Lymphocytes # 1.3 K/mcL (0.6-4.6); Lymphocytes % 26.8 %; Mean Corpuscular HGB Conc 33.3 g/dL (31.6-35.5); Mean Corpuscular Hemoglobin 32.9 pg (28.0-33.3); Mean Corpuscular Volume 98.8 fL (83.0-100.0); Mean Platelet Volume 11.8 fL (9.4-12.4); Monocytes # 0.6 K/mcL (0.0-1.3); Monocytes % 12.4 %; Neutrophils # 2.5 K/mcL (1.6-8.9); Platelet Count 123 K/mcL (140-400); Red Blood Count 4.92 M/mcL (4.19-5.50); Red Cell Distribution Width 13.8 % (11.5-14.5); Segmented Neutrophils % 52.5 %
[2016-10-12 05:26] LABS: BUN/Creatinine Ratio 15 (6-26); Blood Urea Nitrogen 10 mg/dL (8-26); Calcium 9.6 mg/dL (8.6-10.8); Carbon Dioxide 32 mEq/L (19-29); Chloride 100 mEq/L (98-109); Glucose 179 mg/dL (70-99); Osmolality,Calculated 290 (280-300); Potassium 4.3 mEq/L (3.5-4.5); Sodium 138 mEq/L (136-145); eGFR For African Americans > 60 (> 60); eGFR For Non-African Americans > 60 (> 60)
[2016-10-12] MEDS ORDERED: *HR* HYDROmorphone (PF) 1 MG/ML SYRINGE IVP ONE (07:31)
[2016-10-12] MEDS: Insulin LISPRO 300 UNITS/3 ML VIAL SQ SCH ×4 (09:24→20:59)
[2016-10-12] MEDS: risperiDONE 0.25 MG TABLET PO SCH ×2 (09:25→16:53)
[2016-10-12] MEDS: Nicotine 21 MG PATCH.TD24 TD SCH (09:25)
[2016-10-12] MEDS: Docusate Oral Soln 100 MG/10 ML UDC PO SCH ×2 (09:26→20:55)
[2016-10-12] MEDS: Valproic Acid Oral Soln 250 MG/5 ML UDC PO SCH ×3 (09:26→20:54)
[2016-10-12] MEDS: Ascorbic Acid 500 MG TABLET PO SCH (09:27)
[2016-10-12] MEDS: Pregabalin 75 MG CAPSULE PO SCH ×2 (09:27→20:56)
[2016-10-12] MEDS: Cyanocobalamin (B-12) 1,000 MCG TABLET PO SCH (09:27)
[2016-10-12] MEDS: Lactobacillus 1 EACH CAP.SPRINK PO SCH ×2 (09:27→20:54)
[2016-10-12] MEDS: Piperacillin/Tazobactam 3.375 GM in D5% in Water (Mini-Bag+) 100 ML IVPB SCH ×2 (09:28→17:36)
--- NOTE | 2016-10-12 11:19 | Internal Med Progress Note ---
Date of Encounter: 10/12/16 Time of Encounter: 11:19 - Assessment and plan (1) Sepsis Current Visit: Yes Status: Acute Assessment and plan: Complicated UTI in the setting of a patient with paraplegia and a suprapubic catheter. Gram-negative rods isolated in the urine. We will continue with Zosyn at this point. Adjust therapy according to cultures. Patient initially had a leukocytosis of 22.2. today wbc is WL. The patient is at high risk and developing complications such as sepsis in the setting of his condition of poor nutrition and paraplegia with a concomitant urinary tract infection. Patient was febrile upon admission. In light of multiple infections, ID was consulted and ID consultation appreciated DVT prophylaxis with heparin Qualifiers: Sepsis type: sepsis due to unspecified organism Qualified Code(s): A41.9 - Sepsis, unspecified organism (2) UTI (urinary tract infection) Current Visit: No Status: Acute Assessment and plan: as listed above Qualifiers: Urinary tract infection type: catheter-associated UTI Indwelling urinary catheter type: unspecified Encounter type: initial encounter Qualified Code( s): T83.511A - Infection and inflammatory reaction due to indwelling urethral catheter, initial encounter; N39.0 - Urinary tract infection, site not specified (3) Atelectasis of both lungs Current Visit: Yes Status: Acute Assessment and plan: Continue with incentive spirometry. (4) Diabetes mellitus Current Visit: Yes Status: Acute Assessment and plan: Continue monitoring his fingersticks, insulin therapy. Given hyperglycemic readings, will start Levemir closely monitor f/u repeat HbA1C Qualifiers: Diabetes mellitus type: type 2 Diabetes mellitus complication status: with unspecified complications Diabetes mellitus rat exterminator insulin use: without rat exterminator use Qualified Code(s): E11.8 - Type 2 diabetes mellitus with unspecified complications (5) DVT prophylaxis Current Visit: Yes Status: Acute Assessment and plan: heparin SQ (6) Neurogenic bladder Current Visit: Yes Status: Chronic Assessment and plan: suprapubic catheter in place (7) Hypertension Current Visit: Yes Status: Acute Assessment and plan: Noted to be hypertensive will restart home dose of Lisinopril closely monitor BP Hydralazine 10mg IVP q6h Prn SBP>150 Qualifiers: Hypertension type: essential hypertension Qualified Code(s): I10 - Essential (primary) hypertension (8) Paraplegia Current Visit: Yes Status: Chronic - Subjective Interval history: Pt seen and examined at bedside. denies any discomfort at this time. No overnight issues reported. Reported of being an everyday smoker (2-3ppd) Noted to be persistently hyperglycemic, will obtain HbA1C. - Constitutional Vitals: Temp Pulse Resp BP Pulse Ox 97.5 F L 73 16 157/98 95 10/12/16 09:03 10/12/16 09:03 10/12/16 09:03 10/12/16 09:03 10/12/16 09:03 General appearance: Present: A&O X 3, pleasant, no acute distress - Head Head exam: Present: atraumatic, normocephalic - Eye Eye exam: Present: normal appearance, conjuntiva pink, sclera anicteric - Respiratory Respiratory exam: Present: CTAB. Absent: accessory muscle use, rales, rhonchi, wheezes - Cardiovascular Cardiovascular exam: Present: RRR, +S1, +S2. Absent: diastolic murmur, gallop, rubs, systolic murmur - GI/Abdominal GI/Abdominal exam: Present: normal bowel sounds, soft, no peritoneal signs. Absent: distended, tenderness Additional comments: PEG tube in place suprapubic catheter in place - Extremities Exam Extremities exam: Present: warm, radial pulses palpable and symetrical. Absent : calf tenderness, pedal edema - Neurological Exam Neurological exam: Present: alert, oriented X3 - Psychiatric Psychiatric exam: Present: normal affect, normal mood Internal Medicine: Result - Labs CBC & Chem 7: 10/12/16 04:21 10/12/16 04:21 Labs: Short CBC 10/12/16 Range/Units 04:21 WBC 4.8 (4.3-11.1) K/mcL Hgb 16.2 (12.9-16.9) g/dL Hct 48.6 (37.5-50.1) % Plt Count 123 L (140-400) K/mcL Neutrophils # 2.5 (1.6-8.9) K/mcL BMP 10/12/16 04:21 Sodium 138 Potassium 4.3 Chloride 100 Carbon Dioxide 32 H BUN 10 Creatinine 0.65 L Glucose 179 H Calcium 9.6 - ABG Interpretation ABG results: ABG ABG pH 7.23 pH Units (7.32-7.45) L 10/09/16 21:25 ABG pCO2 81 mmHg (35-45) H* 10/09/16 21:25 ABG pO2 73 mmHg (85-104) L 10/09/16 21:25 ABG O2 Saturation 91 % (95-98) L 10/09/16 21:25 PT/INR, D-dimer PT 14.4 Seconds (9.4-12.1) H 10/09/16 20:49 Consult Discharge Plan - Plan Referrals: NO,PCP [Primary Care Provider] - 10/26/16 10:20 am (Please follow up with )
[2016-10-12] MEDS: *HR* OxyCODONE Immed Rel 15 MG TABLET PO PRN ×2 (12:02→20:54)
[2016-10-12] MEDS: Insulin DETEMIR 100 UNIT/ML X5UNITS SQ SCH (13:51)
--- NOTE | 2016-10-12 16:13 | Infectious Disease Progress No ---
Date of Encounter: 10/12/16 Time of Encounter: 16:11 - Assessment and Plan (1) Sepsis Current Visit: Yes Status: Acute The patient had three SIRS criteria on admission. Likely secondary to UTI. Improved. WBC has normalized. Tachycardia has resolved. The patient has been afebrile. Blood cultures drawn 10/09/16 are NGTD x 2 sets. Qualifiers: Sepsis type: sepsis due to unspecified organism Qualified Code(s): A41.9 - Sepsis, unspecified organism (2) UTI (urinary tract infection) Current Visit: Yes Status: Acute CAUTI. Causative organism Escherichia coli ESBL and additional gram-negative bertin that remains unidentified. Review of the medical record reveals that the patient has had multiple urinary tract infections over the past few years. Causative organisms in the past include Pseudomonas, K. pneumoniae, and ESBL Proteus mirabilis. Because the patient has had several different causative organisms, it is unlikely that the patient is colonized. This is likely a re-infection rather than a relapse/ treatment failure. Likely secondary to the patient's neurogenic bladder and chronic indwelling mireles catheter. Consider urology consult as an outpatient to evaluate for additional possible causes. Switch out catheter if not already done during this hospitalization. Continue Zosyn 3.375 grams IV Q8H. When ready for discharge, can continue Zosyn , but change dose to 4.5 grams IV Q8H. Duration of treatment depends on the clinical picture, but would recommend 14 days of treatment from the day the catheter is switched out. Monitor renal function and dose-adjust antibiotics. VAT consulted for EPIV placement. Qualifiers: Urinary tract infection type: catheter-associated UTI Indwelling urinary catheter type: indwelling urethral catheter Encounter type: initial encounter Qualified Code(s): T83.511A - Infection and inflammatory reaction due to indwelling urethral catheter, initial encounter; N39.0 - Urinary tract infection , site not specified (3) Thrombocytopenia Current Visit: Yes Status: Acute Etiology unclear. No evidence of active bleeding. Continue to trend. Management per the primary team. (4) Neurogenic bladder Current Visit: Yes Status: Chronic Secondary to paraplegia. Continue chronic indwelling mireles catheter. (5) Paraplegia Current Visit: Yes Status: Chronic Secondary to fall in 2010. Continue pressure-alleviating strategies. (6) Diabetes mellitus Current Visit: Yes Status: Acute Recommend aggressive glucose monitoring and control to promote wound healing. Management per the primary team. Qualifiers: Diabetes mellitus type: type 2 Diabetes mellitus complication status: with unspecified complications Diabetes mellitus buttermilk drier operator insulin use: without buttermilk drier operator use Qualified Code(s): E11.8 - Type 2 diabetes mellitus with unspecified complications - Subjective Interval history: Patient seen and examined. No acute events noted overnight. Patient states he feels well today. He denies any fevers or chills or rigors. He denies any chest pain, shortness of breath, or cough. He denies any nausea, vomiting, diarrhea, or constipation. He reports that his last bowel movement was yesterday. He has a suprapubic catheter that is draining gianluca-colored cloudy urine. He denies any abdominal pain, but states he does not have an appetite and receives intermittent PEG tube feedings. He complains of chronic pain in his head and neck. He denies any oral thrush or new skin lesions. Infect Dis PN-Objective Data - Labs CBC & Chem 7: 10/12/16 04:21 10/12/16 04:21 Labs: Laboratory Results - last 24 hr 10/11/16 10/11/16 10/11/16 06:47 11:49 16:40 WBC RBC Hgb Hct MCV MCH MCHC RDW Plt Count MPV Immature Gran % Seg Neutrophils % Lymphocytes % Monocytes % Eosinophils % Basophils % Neutrophils # Lymphocytes # Monocytes # Eosinophils # Basophils # Sodium Potassium Chloride Carbon Dioxide BUN Creatinine Est GFR ( Amer) Est GFR (Non-Af Amer) BUN/Creatinine Ratio Glucose POC Glucose 138 H 232 H 310 H Calculated Osmolality Calcium 10/11/16 10/12/16 10/12/16 20:58 04:21 04:21 WBC 4.8 RBC 4.92 Hgb 16.2 Hct 48.6 MCV 98.8 MCH 32.9 MCHC 33.3 RDW 13.8 Plt Count 123 L MPV 11.8 Immature Gran % 0.4 Seg Neutrophils % 52.5 Lymphocytes % 26.8 Monocytes % 12.4 Eosinophils % 7.3 Basophils % 0.6 Neutrophils # 2.5 Lymphocytes # 1.3 Monocytes # 0.6 Eosinophils # 0.4 Basophils # 0.0 Sodium 138 Potassium 4.3 Chloride 100 Carbon Dioxide 32 H BUN 10 Creatinine 0.65 L Est GFR ( Amer) > 60 Est GFR (Non-Af Amer) > 60 BUN/Creatinine Ratio 15 Glucose 179 H POC Glucose 252 H Calculated Osmolality 290 Calcium 9.6 Exam - Constitutional Vitals: Temp Pulse Resp BP Pulse Ox 98 F 77 16 118/72 94 10/12/16 16:01 10/12/16 16:01 10/12/16 16:01 10/12/16 16:01 10/12/16 16:01 General appearance: average body habitus, cooperative, no acute distress - Head Head exam: Present: atraumatic, normal inspection, normocephalic - Eye Eye exam: Present: EOMI, normal appearance, PERRL Pupils: Present: normal accommodation - ENT ENT exam: Present: mucous membranes moist - Neck Neck exam: Present: normal inspection - Respiratory Respiratory exam: Present: CTAB. Absent: rales, respiratory distress, rhonchi, wheezes - Cardiovascular Cardiovascular exam: Present: RRR, +S1, +S2 - GI/Abdominal GI/Abdominal exam: Present: normal bowel sounds, soft. Absent: distended, tenderness Additional comments: PEG tube noted to the epigastric region, currently clamped. Suprapubic catheter noted to be patent and draining cloudy gianluca urine. - Extremities Exam Extremities exam: Absent: joint swelling, pedal edema, tenderness Additional comments: Muscle atrophy and paralysis noted to bilateral lower extremities. Bilateral upper extremity grasps weak, but symmetrical bilaterally. - Neurological Exam Neurological exam: Present: alert, oriented X3. Absent: no focal deficits - Psychiatric Psychiatric exam: Present: normal affect, normal mood - Skin Skin exam: Present: dry, intact, normal color, warm - Additional findings Additional findings: EP IV noted to the left upper extremity with transparent dressing clean, dry, and intact. Consult Discharge Plan - Plan Referrals: NO,PCP [Primary Care Provider] - 10/26/16 10:20 am (Please follow up with ) - Attending Attestation I examined this patient and my medical decision-making was reviewed with the DIETITIAN THERAPEUTIC/PA/Advanced Practice Nurse/Resident Physician. I agree with the documented findings, disposition and treatment plan as described except to the extent set forth below.
[2016-10-12] MEDS ORDERED: *HR* Morphine 2 MG/ML SYRINGE IVP ONE (16:50)
[2016-10-12] MEDS ORDERED: Ertapenem 1,000 MG in 0.9 % Sodium Chloride Mini Bag 100 ML IVPB SCH (17:00)
[2016-10-12] MEDS ORDERED: *HR* LORazepam 2 MG/ML VIAL IVP ONE (20:30)
[2016-10-13] MEDS: Piperacillin/Tazobactam 3.375 GM in D5% in Water (Mini-Bag+) 100 ML IVPB SCH ×3 (00:08→15:58)
[2016-10-13] MEDS: *HR* Morphine Soln 10 MG/5 ML UDC PO PRN ×4 (00:10→20:21)
[2016-10-13] MEDS: 0.9 % Sodium Chloride 1,000 ML IVC SCH ×3 (02:16→11:11)
[2016-10-13] MEDS: *HR* Heparin 5,000 UNIT/ML VIAL SQ SCH ×2 (05:29→19:15)
[2016-10-13 06:26] LABS: Basophils % 0.9 %; Eosinophils # 0.3 K/mcL (0.0-0.6); Eosinophils % 7.3 %; Hematocrit 50.3 % (37.5-50.1); Hemoglobin 16.4 g/dL (12.9-16.9); Immature Granulocytes % 0.2 % (0-4); Lymphocytes # 1.5 K/mcL (0.6-4.6); Lymphocytes % 31.2 %; Mean Corpuscular HGB Conc 32.6 g/dL (31.6-35.5); Mean Corpuscular Hemoglobin 32.5 pg (28.0-33.3); Mean Corpuscular Volume 99.6 fL (83.0-100.0); Mean Platelet Volume 11.1 fL (9.4-12.4); Monocytes # 0.6 K/mcL (0.0-1.3); Monocytes % 12.5 %; Neutrophils # 2.2 K/mcL (1.6-8.9); Platelet Count 130 K/mcL (140-400); Red Blood Count 5.05 M/mcL (4.19-5.50); Red Cell Distribution Width 13.6 % (11.5-14.5); Segmented Neutrophils % 47.9 %
[2016-10-13 06:40] LABS: Hemoglobin A1C 6.6 %
[2016-10-13 06:43] LABS: BUN/Creatinine Ratio 17 (6-26); Blood Urea Nitrogen 11 mg/dL (8-26); Calcium 10.1 mg/dL (8.6-10.8); Carbon Dioxide 32 mEq/L (19-29); Chloride 100 mEq/L (98-109); Glucose 130 mg/dL (70-99); Osmolality,Calculated 293 (280-300); Phosphorous 3.6 mg/dL (2.3-4.7); Potassium 3.8 mEq/L (3.5-4.5); Sodium 141 mEq/L (136-145); eGFR For African Americans > 60 (> 60); eGFR For Non-African Americans > 60 (> 60)
[2016-10-13] MEDS: Cyanocobalamin (B-12) 1,000 MCG TABLET PO SCH (09:14)
[2016-10-13] MEDS: Lactobacillus 1 EACH CAP.SPRINK PO SCH ×2 (09:14→20:22)
[2016-10-13] MEDS: Ascorbic Acid 500 MG TABLET PO SCH (09:14)
[2016-10-13] MEDS: Pregabalin 75 MG CAPSULE PO SCH ×2 (09:14→20:22)
[2016-10-13] MEDS: *HR* OxyCODONE Immed Rel 15 MG TABLET PO PRN ×2 (09:15→15:55)
[2016-10-13] MEDS: risperiDONE 0.25 MG TABLET PO SCH ×2 (09:16→15:55)
[2016-10-13] MEDS: Docusate Oral Soln 100 MG/10 ML UDC PO SCH ×2 (09:16→20:21)
[2016-10-13] MEDS: Valproic Acid Oral Soln 250 MG/5 ML UDC PO SCH ×3 (09:16→20:21)
[2016-10-13] MEDS: Nicotine 21 MG PATCH.TD24 TD SCH (09:19)
[2016-10-13] MEDS: Insulin LISPRO 300 UNITS/3 ML VIAL SQ SCH ×4 (09:53→20:46)
--- NOTE | 2016-10-13 10:11 | Infectious Disease Progress No ---
Date of Encounter: 10/13/16 Time of Encounter: 10:09 - Assessment and Plan (1) Sepsis Current Visit: Yes Status: Acute The patient had three SIRS criteria on admission. Likely secondary to UTI. Improved. WBC has normalized. Tachycardia has resolved. The patient has been afebrile. Blood cultures drawn 10/09/16 are NGTD x 2 sets. Qualifiers: Sepsis type: sepsis due to unspecified organism Qualified Code(s): A41.9 - Sepsis, unspecified organism (2) UTI (urinary tract infection) Current Visit: Yes Status: Acute CAUTI. Causative organism Escherichia coli ESBL and additional gram-negative bertin that remains unidentified. Review of the medical record reveals that the patient has had multiple urinary tract infections over the past few years. Causative organisms in the past include Pseudomonas, K. pneumoniae, and ESBL Proteus mirabilis. Because the patient has had several different causative organisms, it is unlikely that the patient is colonized. This is likely a re-infection rather than a relapse/ treatment failure. Likely secondary to the patient's neurogenic bladder and chronic indwelling mireles catheter. Consider urology consult as an outpatient to evaluate for additional possible causes. Switch out catheter if not already done during this hospitalization. Continue Zosyn 3.375 grams IV Q8H. When ready for discharge, can continue Zosyn , but change dose to 4.5 grams IV Q8H. Duration of treatment depends on the clinical picture, but would recommend 14 days of treatment from the day the catheter is switched out. Monitor renal function and dose-adjust antibiotics. VAT consulted for EPIV placement. Qualifiers: Urinary tract infection type: catheter-associated UTI Indwelling urinary catheter type: indwelling urethral catheter Encounter type: initial encounter Qualified Code(s): T83.511A - Infection and inflammatory reaction due to indwelling urethral catheter, initial encounter; N39.0 - Urinary tract infection , site not specified (3) Thrombocytopenia Current Visit: Yes Status: Acute Etiology unclear. No evidence of active bleeding. Continue to trend. Management per the primary team. (4) Neurogenic bladder Current Visit: Yes Status: Chronic Secondary to paraplegia. Continue chronic indwelling mireles catheter. (5) Paraplegia Current Visit: Yes Status: Chronic Secondary to fall in 2010. Continue pressure-alleviating strategies. (6) Diabetes mellitus Current Visit: Yes Status: Chronic Recommend aggressive glucose monitoring and control to promote wound healing. Management per the primary team. Qualifiers: Diabetes mellitus type: type 2 Diabetes mellitus complication status: with unspecified complications Diabetes mellitus care home insulin use: without care home use Qualified Code(s): E11.8 - Type 2 diabetes mellitus with unspecified complications - Subjective Interval history: Patient seen and examined. No acute events noted overnight. Patient states he feels well today. He denies any fevers or chills or rigors. He denies any chest pain, shortness of breath, or cough. He denies any nausea, vomiting, diarrhea, or constipation. He reports that his last bowel movement was yesterday. He has a suprapubic catheter that is draining gianluca-colored cloudy urine. He denies any abdominal pain, but states he does not have an appetite and receives intermittent PEG tube feedings. He complains of chronic pain in his head and neck. He denies any oral thrush or new skin lesions. Infect Dis PN-Objective Data - Labs CBC & Chem 7: 10/14/16 05:24 10/14/16 05:24 Labs: Laboratory Results - last 24 hr 10/12/16 10/13/16 10/13/16 16:23 06:01 06:01 WBC 4.7 RBC 5.05 Hgb 16.4 Hct 50.3 H MCV 99.6 MCH 32.5 MCHC 32.6 RDW 13.6 Plt Count 130 L MPV 11.1 Immature Gran % 0.2 Seg Neutrophils % 47.9 Lymphocytes % 31.2 Monocytes % 12.5 Eosinophils % 7.3 Basophils % 0.9 Neutrophils # 2.2 Lymphocytes # 1.5 Monocytes # 0.6 Eosinophils # 0.3 Basophils # 0.0 Sodium Potassium Chloride Carbon Dioxide BUN Creatinine Est GFR ( Amer) Est GFR (Non-Af Amer) BUN/Creatinine Ratio Glucose POC Glucose 260 H Est Mean Plasma Glucose 143 Hemoglobin A1c 6.6 H Calculated Osmolality Calcium Phosphorus Magnesium 10/13/16 10/13/16 06:01 07:44 WBC RBC Hgb Hct MCV MCH MCHC RDW Plt Count MPV Immature Gran % Seg Neutrophils % Lymphocytes % Monocytes % Eosinophils % Basophils % Neutrophils # Lymphocytes # Monocytes # Eosinophils # Basophils # Sodium 141 Potassium 3.8 Chloride 100 Carbon Dioxide 32 H BUN 11 Creatinine 0.64 L Est GFR ( Amer) > 60 Est GFR (Non-Af Amer) > 60 BUN/Creatinine Ratio 17 Glucose 130 H POC Glucose 156 H Est Mean Plasma Glucose Hemoglobin A1c Calculated Osmolality 293 Calcium 10.1 Phosphorus 3.6 Magnesium 2.0 Exam - Constitutional Vitals: Temp Pulse Resp BP Pulse Ox 97.5 F L 79 18 160/93 94 10/13/16 07:25 10/13/16 07:25 10/13/16 07:25 10/13/16 07:25 10/13/16 07:25 Consult Discharge Plan - Plan Additional Instructions: Please follow up with your primary care physician and infectious disease specialist within five days after your discharge from the hospital. Please continue IV abx as prescribed. Please resume all other home medications as prescribed by your primary care physician. Referrals: NO,PCP [Non-Partnered Physician] - 10/26/16 10:20 am (Please follow up with ) Prescriptions: Piperacillin/Tazobactam [Zosyn] 4.5 gm IVPB Q8H #42 vial - Attending Attestation I examined this patient and my medical decision-making was reviewed with the PROTECTIVE SERVICES OFFICER/PA/Advanced Practice Nurse/Resident Physician. I agree with the documented findings, disposition and treatment plan as described except to the extent set forth below.
[2016-10-13] MEDS: Insulin DETEMIR 100 UNIT/ML X5UNITS SQ SCH (11:04)
--- NOTE | 2016-10-13 12:08 | Infectious Disease Progress No ---
Date of Encounter: 10/13/16 Time of Encounter: 12:06 - Assessment and Plan (1) Sepsis Current Visit: Yes Status: Acute The patient had three SIRS criteria on admission. Likely secondary to UTI. Improved. WBC has normalized. Tachycardia has resolved. The patient has been afebrile. Blood cultures drawn 10/09/16 are NGTD x 2 sets. Qualifiers: Sepsis type: sepsis due to unspecified organism Qualified Code(s): A41.9 - Sepsis, unspecified organism (2) UTI (urinary tract infection) Current Visit: Yes Status: Acute CAUTI. Causative organism Escherichia coli ESBL and PSEA. Because the patient has had several different causative organisms, it is unlikely that the patient is colonized. This is likely a re-infection rather than a relapse/treatment failure. Likely secondary to the patient's neurogenic bladder and chronic indwelling mireles catheter. Consider urology consult as an outpatient to evaluate for additional possible causes. Switch out catheter if not already done during this hospitalization. Continue Zosyn 3.375 grams IV Q8H. When ready for discharge, can continue Zosyn , but change dose to 4.5 grams IV Q8H. Duration of treatment depends on the clinical picture, but would recommend 14 days of treatment from the day the catheter is switched out. Monitor renal function and dose-adjust antibiotics. Qualifiers: Urinary tract infection type: catheter-associated UTI Indwelling urinary catheter type: indwelling urethral catheter Encounter type: initial encounter Qualified Code(s): T83.511A - Infection and inflammatory reaction due to indwelling urethral catheter, initial encounter; N39.0 - Urinary tract infection , site not specified (3) Thrombocytopenia Current Visit: Yes Status: Acute Etiology unclear. No evidence of active bleeding. Continue to trend. Management per the primary team. (4) Neurogenic bladder Current Visit: Yes Status: Chronic Secondary to paraplegia. Continue chronic indwelling mireles catheter. (5) Paraplegia Current Visit: Yes Status: Chronic Secondary to fall in 2010. Continue pressure-alleviating strategies. (6) Diabetes mellitus Current Visit: Yes Status: Chronic Recommend aggressive glucose monitoring and control to promote wound healing. Management per the primary team. Qualifiers: Diabetes mellitus type: type 2 Diabetes mellitus complication status: with unspecified complications Diabetes mellitus fci insulin use: without fci use Qualified Code(s): E11.8 - Type 2 diabetes mellitus with unspecified complications - Subjective Interval history: Patient seen and examined. No acute events noted overnight. Patient states he feels well today. He denies any fevers or chills or rigors. He denies any chest pain, shortness of breath, or cough. He denies any nausea, vomiting, diarrhea, or constipation. He reports that his last bowel movement was two days ago. He has a suprapubic catheter that is draining clear yellow urine. He denies any abdominal pain, but states he does not have an appetite and receives intermittent PEG tube feedings. He complains of chronic diffuse pain, but offers no specific complaints. He denies any oral thrush or new skin lesions. He is anxious to go home today. Infect Dis PN-Objective Data - Labs CBC & Chem 7: 10/14/16 05:24 10/14/16 05:24 Labs: Laboratory Results - last 24 hr 10/12/16 10/13/16 10/13/16 16:23 06:01 06:01 WBC 4.7 RBC 5.05 Hgb 16.4 Hct 50.3 H MCV 99.6 MCH 32.5 MCHC 32.6 RDW 13.6 Plt Count 130 L MPV 11.1 Immature Gran % 0.2 Seg Neutrophils % 47.9 Lymphocytes % 31.2 Monocytes % 12.5 Eosinophils % 7.3 Basophils % 0.9 Neutrophils # 2.2 Lymphocytes # 1.5 Monocytes # 0.6 Eosinophils # 0.3 Basophils # 0.0 Sodium Potassium Chloride Carbon Dioxide BUN Creatinine Est GFR ( Amer) Est GFR (Non-Af Amer) BUN/Creatinine Ratio Glucose POC Glucose 260 H Est Mean Plasma Glucose 143 Hemoglobin A1c 6.6 H Calculated Osmolality Calcium Phosphorus Magnesium 10/13/16 10/13/16 10/13/16 06:01 07:44 10:49 WBC RBC Hgb Hct MCV MCH MCHC RDW Plt Count MPV Immature Gran % Seg Neutrophils % Lymphocytes % Monocytes % Eosinophils % Basophils % Neutrophils # Lymphocytes # Monocytes # Eosinophils # Basophils # Sodium 141 Potassium 3.8 Chloride 100 Carbon Dioxide 32 H BUN 11 Creatinine 0.64 L Est GFR ( Amer) > 60 Est GFR (Non-Af Amer) > 60 BUN/Creatinine Ratio 17 Glucose 130 H POC Glucose 156 H 245 H Est Mean Plasma Glucose Hemoglobin A1c Calculated Osmolality 293 Calcium 10.1 Phosphorus 3.6 Magnesium 2.0 Exam - Constitutional Vitals: Temp Pulse Resp BP Pulse Ox 97.9 F 85 18 151/85 94 10/13/16 10:45 10/13/16 10:45 10/13/16 10:45 10/13/16 10:45 10/13/16 10:45 General appearance: average body habitus, cooperative, no acute distress - Head Head exam: Present: atraumatic, normal inspection, normocephalic - Eye Eye exam: Present: EOMI, normal appearance, PERRL Pupils: Present: normal accommodation - ENT ENT exam: Present: mucous membranes moist - Neck Neck exam: Present: normal inspection - Respiratory Respiratory exam: Present: CTAB. Absent: rales, respiratory distress, rhonchi, wheezes - Cardiovascular Cardiovascular exam: Present: RRR, +S1, +S2 - GI/Abdominal GI/Abdominal exam: Present: normal bowel sounds, soft. Absent: distended, tenderness Additional comments: Suprapubic catheter noted to be draining clear yellow urine. PEG tube noted to the epigastric region is currently clamped. - Extremities Exam Extremities exam: Absent: joint swelling, pedal edema, tenderness Additional comments: Muscle atrophy and wasting noted to the bilateral lower extremities. - Neurological Exam Neurological exam: Present: alert, oriented X3. Absent: no focal deficits ( Paralysis noted to the bilateral lower extremities.) - Psychiatric Psychiatric exam: Present: normal affect, normal mood - Skin Skin exam: Present: dry, intact, normal color, warm Consult Discharge Plan - Plan Additional Instructions: Please follow up with your primary care physician and infectious disease specialist within five days after your discharge from the hospital. Please continue IV abx as prescribed. Please resume all other home medications as prescribed by your primary care physician. Referrals: NO,PCP [Non-Partnered Physician] - 10/26/16 10:20 am (Please follow up with ) Prescriptions: Piperacillin/Tazobactam [Zosyn] 4.5 gm IVPB Q8H #42 vial - Attending Attestation I examined this patient and my medical decision-making was reviewed with the SENIOR LOAN PROCESSOR/PA/Advanced Practice Nurse/Resident Physician. I agree with the documented findings, disposition and treatment plan as described except to the extent set forth below. Patient was anxious and wanted to sign out AGAINST MEDICAL ADVICE. I walked in to the patient room with the nursing staff brought in the computer reviewed all his labs showed him his microbiology his WBC is temperature curve and how ill he was. He said he does not believe that most people are telling him. I reviewed the whole chart with him in front of him and convinced him to stay.
--- NOTE | 2016-10-13 13:36 | General Surgery Procedure Note ---
Date of procedure: 10/13/16 Pre-op diagnosis: Malfunctioning PEG tube Post-op diagnosis: same Procedure: After informed consent was obtained and timeout performed, the patient was placed in the supine position. 2 mL's of fluid was removed from the current PEG tube balloon and the PEG tube was removed without difficulty. The balloon and tip were intact. A #24-Algerian replacement PEG tube was inserted into the tract without difficulty. The balloon was inflated with 10 mL's of saline. The tube was secure at the 3.5 cm chinmay at the abdominal wall. There was return of gastric contents within the PEG tube lumen. The patient tolerated this well and there were no complications noted. No blood loss noted. May use the PEG tube for feedings and medications at this time. Complications: None Anesthesia: none Surgeon: Francine Rausch Estimated blood loss (cc): 0 Pathology: none sent Condition: stable Disposition: no change
--- NOTE | 2016-10-13 14:01 | Internal Med Progress Note ---
Date of Encounter: 10/13/16 Time of Encounter: 12:15 - Assessment and plan (1) Sepsis Current Visit: Yes Status: Acute Assessment and plan: Complicated UTI in the setting of a patient with paraplegia and a suprapubic catheter. Gram-negative rods isolated in the urine. We will continue with Zosyn at this point. Adjust therapy according to cultures. Patient initially had a leukocytosis of 22.2. today wbc is WL. The patient is at high risk and developing complications such as sepsis in the setting of his condition of poor nutrition and paraplegia with a concomitant urinary tract infection. Patient was febrile upon admission. In light of multiple infections, ID was consulted and ID consultation appreciated DVT prophylaxis with heparin To be discharged to [facility] with 14 days of IV abx. Qualifiers: Sepsis type: sepsis due to unspecified organism Qualified Code(s): A41.9 - Sepsis, unspecified organism (2) UTI (urinary tract infection) Current Visit: No Status: Acute Assessment and plan: as listed above Qualifiers: Urinary tract infection type: catheter-associated UTI Indwelling urinary catheter type: unspecified Encounter type: initial encounter Qualified Code( s): T83.511A - Infection and inflammatory reaction due to indwelling urethral catheter, initial encounter; N39.0 - Urinary tract infection, site not specified (3) Atelectasis of both lungs Current Visit: Yes Status: Acute Assessment and plan: Continue with incentive spirometry. (4) Diabetes mellitus Current Visit: Yes Status: Acute Assessment and plan: Continue monitoring his fingersticks, insulin therapy. continue Levemir closely monitor HbA1C: 6.6 Qualifiers: Diabetes mellitus type: type 2 Diabetes mellitus complication status: with unspecified complications Diabetes mellitus long term care phlebotomist insulin use: without long term care phlebotomist use Qualified Code(s): E11.8 - Type 2 diabetes mellitus with unspecified complications (5) DVT prophylaxis Current Visit: Yes Status: Acute Assessment and plan: heparin SQ (6) Neurogenic bladder Current Visit: Yes Status: Chronic Assessment and plan: suprapubic catheter in place (7) Hypertension Current Visit: Yes Status: Acute Assessment and plan: BP within acceptable range will continue to monitor Hydralazine 10mg IVP q6h Prn SBP>150 Qualifiers: Hypertension type: essential hypertension Qualified Code(s): I10 - Essential (primary) hypertension (8) Paraplegia Current Visit: Yes Status: Chronic - Subjective Interval history: Pt seen and examined at bedside. denies any discomfort at this time. Noted to have a kinked PEG tube requiring replacement. Surgery consultation was requested and PEG tube was replaced at bedside. As per ID's request, urology has been consulted for replacement of suprapubic catheter. pt and family have been indecisive about patient's discharge planning. Earlier this morning patient's POA was adamantly against patient's discharge to the ECF and stated that she will be able to administer the IV abx at home, however, later this afternoon, she changed her mind and wishes the patient be discharged to an ECF. consulting property manager aware and working on placement to an ECF. Likely d/c in am after replacement of suprapubic catheter and placement into ECF. - Constitutional Vitals: Temp Pulse Resp BP Pulse Ox 97.9 F 85 18 151/85 94 10/13/16 10:45 10/13/16 10:45 10/13/16 10:45 10/13/16 10:45 10/13/16 10:45 General appearance: Present: A&O X 3, pleasant, no acute distress - Head Head exam: Present: atraumatic, normocephalic - Eye Eye exam: Present: normal appearance, conjuntiva pink, sclera anicteric - Respiratory Respiratory exam: Present: CTAB. Absent: accessory muscle use, rales, rhonchi, wheezes - Cardiovascular Cardiovascular exam: Present: RRR, +S1, +S2. Absent: diastolic murmur, gallop, rubs, systolic murmur - GI/Abdominal GI/Abdominal exam: Present: soft. Absent: tenderness Additional comments: PEG tube intact, site clean suprapubic catheter in place - Extremities Exam Extremities exam: Present: warm, radial pulses palpable and symetrical. Absent : calf tenderness, cyanotic, pedal edema - Neurological Exam Neurological exam: Present: alert, oriented X3 - Psychiatric Psychiatric exam: Present: normal affect, normal mood Internal Medicine: Result - Labs CBC & Chem 7: 10/13/16 06:01 10/13/16 06:01 Labs: Short CBC 10/13/16 Range/Units 06:01 WBC 4.7 (4.3-11.1) K/mcL Hgb 16.4 (12.9-16.9) g/dL Hct 50.3 H (37.5-50.1) % Plt Count 130 L (140-400) K/mcL Neutrophils # 2.2 (1.6-8.9) K/mcL BMP 10/13/16 06:01 Sodium 141 Potassium 3.8 Chloride 100 Carbon Dioxide 32 H BUN 11 Creatinine 0.64 L Glucose 130 H Calcium 10.1 - ABG Interpretation ABG results: ABG ABG pH 7.23 pH Units (7.32-7.45) L 10/09/16 21:25 ABG pCO2 81 mmHg (35-45) H* 10/09/16 21:25 ABG pO2 73 mmHg (85-104) L 10/09/16 21:25 ABG O2 Saturation 91 % (95-98) L 10/09/16 21:25 PT/INR, D-dimer PT 14.4 Seconds (9.4-12.1) H 10/09/16 20:49 Consult Discharge Plan - Plan Referrals: NO,PCP [Non-Partnered Physician] - 10/26/16 10:20 am (Please follow up with ) Prescriptions: Vjjtizysweyy-[id number],Iso [Zosyn 4.5 gm/100 ml Galaxy Bag] 4.5 gm IV Q8H # 14 [email or web address] Piperacillin/Tazobactam [Zosyn] 4.5 gm IVPB Q8H #42 vial
[2016-10-13] MEDS: Acetaminophen/Butalbital/CaffeineTABLET PO PRN (18:15)
[2016-10-14] MEDS: Piperacillin/Tazobactam 3.375 GM in D5% in Water (Mini-Bag+) 100 ML IVPB SCH ×3 (00:14→15:45)
[2016-10-14] MEDS: *HR* OxyCODONE Immed Rel 15 MG TABLET PO PRN ×2 (04:00→21:57)
[2016-10-14] MEDS: *HR* Heparin 5,000 UNIT/ML VIAL SQ SCH ×2 (05:05→17:37)
[2016-10-14 05:53] LABS: Basophils % 0.9 %; Eosinophils # 0.4 K/mcL (0.0-0.6); Eosinophils % 7.8 %; Hematocrit 52.1 % (37.5-50.1); Hemoglobin 17.6 g/dL (12.9-16.9); Immature Granulocytes % 0.7 % (0-4); Lymphocytes # 1.1 K/mcL (0.6-4.6); Lymphocytes % 25.3 %; Mean Corpuscular HGB Conc 33.8 g/dL (31.6-35.5); Mean Corpuscular Hemoglobin 32.4 pg (28.0-33.3); Mean Corpuscular Volume 95.8 fL (83.0-100.0); Mean Platelet Volume 11.6 fL (9.4-12.4); Monocytes # 0.5 K/mcL (0.0-1.3); Monocytes % 10.8 %; Neutrophils # 2.4 K/mcL (1.6-8.9); Platelet Count 120 K/mcL (140-400); Red Blood Count 5.44 M/mcL (4.19-5.50); Red Cell Distribution Width 13.7 % (11.5-14.5); Segmented Neutrophils % 54.5 %
[2016-10-14 06:09] LABS: BUN/Creatinine Ratio 19 (6-26); Blood Urea Nitrogen 13 mg/dL (8-26); Calcium 10.2 mg/dL (8.6-10.8); Carbon Dioxide 29 mEq/L (19-29); Chloride 99 mEq/L (98-109); Glucose 174 mg/dL (70-99); Osmolality,Calculated 288 (280-300); Phosphorous 3.9 mg/dL (2.3-4.7); Sodium 137 mEq/L (136-145); eGFR For African Americans > 60 (> 60); eGFR For Non-African Americans > 60 (> 60)
[2016-10-14 06:10] LABS: Magnesium 2.2 mg/dL (1.6-2.6); Potassium 4.4 mEq/L (3.5-4.5)
[2016-10-14] MEDS: *HR* Morphine Soln 10 MG/5 ML UDC PO PRN ×3 (06:36→15:45)
--- NOTE | 2016-10-14 07:09 | Urology Procedure Note ---
Date of Encounter: 10/14/16 Time of Encounter: 07:08 Procedures:Urology - Suprapubic Catheter Replacement Consent obtained: verbal consent Time out performed: Yes Reason for Suprapubic Catheter: replace existing SPT (change) Estimated Amount of Urine (mLs): 30 Prophylactic Antibiotics Given: No Skin cleansed in sterile fashion: Yes Suprapubic Type and Size: [address] Amount of Urine Returned: 30 Urine Appearance: Clear Patient tolerated procedure: well
[2016-10-14] MEDS: Docusate Oral Soln 100 MG/10 ML UDC PO SCH ×2 (08:44→21:58)
[2016-10-14] MEDS: risperiDONE 0.25 MG TABLET PO SCH ×2 (08:44→15:45)
[2016-10-14] MEDS: Lactobacillus 1 EACH CAP.SPRINK PO SCH (08:44)
[2016-10-14] MEDS: Valproic Acid Oral Soln 250 MG/5 ML UDC PO SCH ×3 (08:44→21:55)
[2016-10-14] MEDS: Pregabalin 75 MG CAPSULE PO SCH ×2 (08:45→21:56)
[2016-10-14] MEDS: Ascorbic Acid 500 MG TABLET PO SCH (08:45)
[2016-10-14] MEDS: Cyanocobalamin (B-12) 1,000 MCG TABLET PO SCH (08:46)
[2016-10-14] MEDS: Nicotine 21 MG PATCH.TD24 TD SCH (08:46)
[2016-10-14] MEDS: Insulin LISPRO 300 UNITS/3 ML VIAL SQ SCH ×4 (08:50→21:54)
[2016-10-14] MEDS: Insulin DETEMIR 100 UNIT/ML X5UNITS SQ SCH (09:11)
--- NOTE | 2016-10-14 11:33 | Infectious Disease Progress No ---
Date of Encounter: 10/14/16 Time of Encounter: 11:31 - Assessment and Plan (1) Sepsis Current Visit: Yes Status: Acute The patient had three SIRS criteria on admission. Likely secondary to UTI. Improved. WBC has normalized. Tachycardia has resolved. The patient has been afebrile. Blood cultures drawn 10/09/16 are NGTD x 2 sets. Qualifiers: Sepsis type: sepsis due to unspecified organism Qualified Code(s): A41.9 - Sepsis, unspecified organism (2) UTI (urinary tract infection) Current Visit: Yes Status: Acute CAUTI. Causative organism Escherichia coli ESBL and PSEA. Because the patient has had several different causative organisms, it is unlikely that the patient is colonized. This is likely a re-infection rather than a relapse/treatment failure. Likely secondary to the patient's neurogenic bladder and chronic indwelling mireles catheter. Consider urology consult as an outpatient to evaluate for additional possible causes. Status post SPT replacement this morning by Dr. Salgado. Continue Zosyn 3.375 grams IV Q8H. When ready for discharge, can continue Zosyn , but change dose to 4.5 grams IV Q8H. Duration of treatment depends on the clinical picture, but would recommend 14 days of treatment from the day the catheter is switched out. Monitor renal function and dose-adjust antibiotics. Qualifiers: Urinary tract infection type: catheter-associated UTI Indwelling urinary catheter type: indwelling urethral catheter Encounter type: initial encounter Qualified Code(s): T83.511A - Infection and inflammatory reaction due to indwelling urethral catheter, initial encounter; N39.0 - Urinary tract infection , site not specified (3) Thrombocytopenia Current Visit: Yes Status: Acute Etiology unclear. No evidence of active bleeding. Continue to trend. Management per the primary team. (4) Neurogenic bladder Current Visit: Yes Status: Chronic Secondary to paraplegia. Continue chronic indwelling mireles catheter. (5) Paraplegia Current Visit: Yes Status: Chronic Secondary to fall in 2010. Continue pressure-alleviating strategies. (6) Diabetes mellitus Current Visit: Yes Status: Chronic Recommend aggressive glucose monitoring and control to promote wound healing. Management per the primary team. Qualifiers: Diabetes mellitus type: type 2 Diabetes mellitus complication status: with unspecified complications Diabetes mellitus prison insulin use: without intermediate manager use Qualified Code(s): E11.8 - Type 2 diabetes mellitus with unspecified complications - Subjective Interval history: Patient seen and examined. Acute events from last night noted. Status post PEG tube replacement yesterday and SPT this morning. Patient states he feels well today. He denies any fevers or chills or rigors. He denies any chest pain, shortness of breath, or cough. He denies any nausea, vomiting, diarrhea, or constipation. He reports that his last bowel movement was two days ago. He has a suprapubic catheter that is draining clear yellow urine. He denies any abdominal pain, but states he does not have an appetite and receives intermittent PEG tube feedings. He complains of chronic diffuse pain, but offers no specific complaints. He denies any oral thrush or new skin lesions. He is anxious to go home today. Infect Dis PN-Objective Data - Labs CBC & Chem 7: 10/14/16 05:24 10/14/16 05:24 Labs: Laboratory Results - last 24 hr 10/12/16 10/12/16 10/12/16 08:35 11:58 20:58 WBC RBC Hgb Hct MCV MCH MCHC RDW Plt Count MPV Immature Gran % Seg Neutrophils % Lymphocytes % Monocytes % Eosinophils % Basophils % Neutrophils # Lymphocytes # Monocytes # Eosinophils # Basophils # Sodium Potassium Chloride Carbon Dioxide BUN Creatinine Est GFR ( Amer) Est GFR (Non-Af Amer) BUN/Creatinine Ratio Glucose POC Glucose 205 H 297 H 255 H Calculated Osmolality Calcium Phosphorus Magnesium 10/13/16 10/13/16 10/14/16 15:19 20:43 05:24 WBC 4.5 RBC 5.44 Hgb 17.6 H Hct 52.1 H MCV 95.8 MCH 32.4 MCHC 33.8 RDW 13.7 Plt Count 120 L MPV 11.6 Immature Gran % 0.7 Seg Neutrophils % 54.5 Lymphocytes % 25.3 Monocytes % 10.8 Eosinophils % 7.8 Basophils % 0.9 Neutrophils # 2.4 Lymphocytes # 1.1 Monocytes # 0.5 Eosinophils # 0.4 Basophils # 0.0 Sodium Potassium Chloride Carbon Dioxide BUN Creatinine Est GFR ( Amer) Est GFR (Non-Af Amer) BUN/Creatinine Ratio Glucose POC Glucose 281 H 258 H Calculated Osmolality Calcium Phosphorus Magnesium 10/14/16 10/14/16 10/14/16 05:24 08:28 10:51 WBC RBC Hgb Hct MCV MCH MCHC RDW Plt Count MPV Immature Gran % Seg Neutrophils % Lymphocytes % Monocytes % Eosinophils % Basophils % Neutrophils # Lymphocytes # Monocytes # Eosinophils # Basophils # Sodium 137 Potassium 4.4 Chloride 99 Carbon Dioxide 29 BUN 13 Creatinine 0.69 L Est GFR ( Amer) > 60 Est GFR (Non-Af Amer) > 60 BUN/Creatinine Ratio 19 Glucose 174 H POC Glucose 169 H 279 H Calculated Osmolality 288 Calcium 10.2 Phosphorus 3.9 Magnesium 2.2 Exam - Constitutional Vitals: Temp Pulse Resp BP Pulse Ox 97.5 F L 76 16 142/86 95 10/14/16 11:01 10/14/16 11:01 10/14/16 11:01 10/14/16 11:01 10/14/16 11:01 General appearance: average body habitus, cooperative, no acute distress - Head Head exam: Present: atraumatic, normal inspection, normocephalic - Eye Eye exam: Present: EOMI, normal appearance, PERRL Pupils: Present: normal accommodation - ENT ENT exam: Present: mucous membranes moist - Neck Neck exam: Present: normal inspection - Respiratory Respiratory exam: Present: CTAB, wheezes. Absent: rales, respiratory distress, rhonchi - Cardiovascular Cardiovascular exam: Present: RRR, +S1, +S2 - GI/Abdominal GI/Abdominal exam: Present: normal bowel sounds, soft. Absent: distended, tenderness Additional comments: Supra-pubic catheter noted without erythema or drainage noted. Draining clear yellow urine. PEG tube noted to the epigastric region, currently clamped. - Extremities Exam Extremities exam: Absent: joint swelling, pedal edema, tenderness Additional comments: BLE muscle wasting noted. - Neurological Exam Neurological exam: Present: alert, oriented X3. Absent: no focal deficits ( Paralysis noted to the BLE.) - Psychiatric Psychiatric exam: Present: normal affect, normal mood - Skin Skin exam: Present: dry, intact, normal color, warm - Additional findings Additional findings: EPIV noted to the LUE with transparent dressing C/D/I. Consult Discharge Plan - Plan Additional Instructions: Please follow up with your primary care physician and infectious disease specialist within five days after your discharge from the hospital. Please continue IV abx as prescribed. Please resume all other home medications as prescribed by your primary care physician. Referrals: NO,PCP [Non-Partnered Physician] - 10/26/16 10:20 am (Please follow up with ) Prescriptions: Piperacillin/Tazobactam [Zosyn] 4.5 gm IVPB Q8H #42 vial - Attending Attestation I examined this patient and my medical decision-making was reviewed with the SENIOR SOURCING MANAGER/PA/Advanced Practice Nurse/Resident Physician. I agree with the documented findings, disposition and treatment plan as described except to the extent set forth below.
--- NOTE | 2016-10-14 12:48 | Discharge Summary ---
Date of Encounter: 10/14/16 Time of Encounter: 12:48 - Discharge Diagnosis (1) Sepsis Priority: Primary Status: Resolved Qualifiers: Sepsis type: sepsis due to unspecified organism Qualified Code(s): A41.9 - Sepsis, unspecified organism (2) UTI (urinary tract infection) Priority: Primary Status: Acute Qualifiers: Urinary tract infection type: catheter-associated UTI Indwelling urinary catheter type: unspecified Encounter type: initial encounter Qualified Code( s): T83.511A - Infection and inflammatory reaction due to indwelling urethral catheter, initial encounter; N39.0 - Urinary tract infection, site not specified (3) Atelectasis of both lungs Priority: Secondary Status: Resolved (4) Diabetes mellitus Priority: Secondary Status: Chronic Qualifiers: Diabetes mellitus type: type 2 Diabetes mellitus complication status: with unspecified complications Diabetes mellitus care home insulin use: without superintendent terminal use Qualified Code(s): E11.8 - Type 2 diabetes mellitus with unspecified complications (5) DVT prophylaxis Priority: Secondary Status: Acute (6) Neurogenic bladder Priority: Secondary Status: Chronic (7) Hypertension Priority: Secondary Status: Chronic Qualifiers: Hypertension type: essential hypertension Qualified Code(s): I10 - Essential (primary) hypertension (8) Paraplegia Priority: Secondary Status: Chronic - Discharge Medications Prescriptions: Piperacillin/Tazobactam [Zosyn] 4.5 gm IVPB Q8H #42 vial Home Medications: Ascorbic Acid [Vitamin C] 500 mg PO DAILY 03/20/15 [History] Carvedilol 6.25 mg GTUBE DAILY 03/20/15 [History] Loratadine [Claritin] 10 mg GTUBE DAILY 03/20/15 [History] Metformin HCl [Glucophage] 1,000 mg PO BID 03/20/15 [History] Ondansetron HCl [Zofran] 4 mg PO Q6HR PRN #30 tablet 10/04/15 [Rx] Quetiapine Fumarate [Seroquel] 400 mg GTUBE HS 30 Days 10/29/15 [Rx] risperiDONE [RisperDAL] 0.5 mg PO BID #30 tablet 10/29/15 [Rx] Albuterol Sulfate [Ventolin Hfa] 2 puff IH Q4H PRN 11/02/15 [History] Cyanocobalamin (Vitamin B-12) [Vitamin B-12] 500 mcg PO DAILY 05/10/16 [History] Docusate Sodium [Docu Liquid] 100 mg PO BID 05/10/16 [History] Oxycodone HCl 15 mg PO Q6H PRN 05/10/16 [History] Ranitidine HCl [Acid Sample Weaver] 150 mg PO DAILY 05/10/16 [History] Sennosides [Senna] 17.6 mg PO HS 05/10/16 [History] Valproic Acid Oral Soln [Depakene Oral Soln] 250 mg PO TID 05/10/16 [History] Butalb/Acetaminophen/Caffeine [Esgic 50-325-40 mg Tablet] 1 tab PO TID PRN 07/16 [History] Morphine Sulfate [Morphine Oral Solution] 20 mg PO Q4H PRN 07/16/16 [History] Pregabalin [Lyrica] 150 mg PO BID 07/16/16 [History] Promethazine [Phenergan] 25 mg PO TID PRN 07/16/16 [History] Oxybutynin [Ditropan] 5 mg GTUBE TID 07/30/16 [History] Buspirone HCl [Buspar] 10 mg PO BID 10/10/16 [History] Lisinopril [Zestril] 10 mg PO DAILY 10/10/16 [History] Na Phos,M-B/Na Phos,Di-Ba [Fleet Enema Extra] 230 ml RC DAILY PRN 10/10/16 [ History] Nut.tx.gluc.intoler,Lac-Fr,Soy [Glucerna 1.5 Timoteo] 1 can PO AD 10/10/16 [History] Polyethylene Glycol 3350 [Smoothlax] 17 gm PO DAILY PRN 10/10/16 [History] clonazePAM [Klonopin] 1 mg GTUBE TAPER 10/10/16 [History] Piperacillin/Tazobactam [Zosyn] 4.5 gm IVPB Q8H #42 vial 10/13/16 [Rx] Allergies/Adverse Reactions: Allergies azithromycin [From Zithromax] Allergy (Verified 10/10/16 00:08) Anaphylaxis linezolid [From Zyvox] Allergy (Verified 10/10/16 00:08) Anaphylaxis Date of admission: 10/10/16 02:33 Primary care physician: Kobe Bailon DO Consults: 10/10/16 08:13 Consult to Nutrition [CONS] Routine Comment: Consulting Provider: NUTRITION Reason for Dietary Consult: Other Other:: paient needs feeding via peg tube 10/11/16 07:00 Consult to Infectious Diseases [CONS] Routine Consulting Provider: Infectious Disease Angela Reason for Consult: recurrent catheter associated uti Call Completed: No 10/12/16 12:52 Consult to Urology [CONS] Routine Consulting Provider: Urology Alkol Reason for Consult: Change Suprapubic cath Call Completed: No 10/12/16 12:53 Consult to Invasive Line Access Team [CONS] Routine Reason for Consult: Meropenum 1 g Q24 outpt Line Type: EPIV 10/12/16 17:42 Consult to Surgery [CONS] Routine Consulting Provider: Surgery [facility] Reason for Consult: change peg tube Call Completed: Yes 10/13/16 10:24 Consult to [facility] [CONS] Routine Reason for SW Consult: pt needs 14 days for iv atb in e[facility], hh unable to do this. pt states he wants any facility he can smoke in. Discharging clinician: Janice Serrano Anticipated date of discharge: 10/14/16 - Patient Status Disposition: Home Health Service Condition: Fair Functional capacity at discharge: bed bound Overall status at discharge: patient is back to baseline - Discharge Instructions Follow Up With: MARGARETHPCP [Non-Partnered Physician] - 10/26/16 10:20 am (Please follow up with ) Additional Instructions: Please follow up with your primary care physician and infectious disease specialist within five days after your discharge from the hospital. Please continue IV abx as prescribed. Please resume all other home medications as prescribed by your primary care physician. - Diet and Activity Activity: resume usual activities as tolerated Diet: diabetic diet Hospital course: Mr. Jaramillo is a 51 year old male with PMH of paraplegia, neurogenic bladder s/ p suprapubic catheter placement, s/p PEG, htn, dm, bipolar dx, schizophrenia who was admitted for sepsis secondary to UTI. Pt was started on empiric IV abx and therapy was changed as per culture results. Infectious disease was consulted and patient's antibiotic regimen was addressed by ID. Pt also had replacement of suprapubic cath during this hospitalization due to the infection. He was also found to have a kinked PEG tube was replaced by surgery. Pt's discharge was delayed due to patient and his POA's decision being constantly changed from going to ECF vs. home. At this time patient and his POA are in agreement that patient will be going home with home health and his POA will be giving him the IV abx. Patient is hemodynamically stable and will be discharged to home with follow up with ID and PCP. Extensive smoking cessation counseling was provided and patient refuses to quit at this time. - Time Spent with Patient Total time spent providing and/or coordinating discharge services: Greater than 30 minutes - Constitutional Vitals: Temp Pulse Resp BP Pulse Ox 97.5 F L 76 16 142/86 95 10/14/16 11:01 10/14/16 11:01 10/14/16 11:01 10/14/16 11:01 10/14/16 11:01 General appearance: Present: A&O X 3, pleasant, no acute distress - Head Head exam: Present: atraumatic, normocephalic - Eye Eye exam: Present: normal appearance, conjuntiva pink, sclera anicteric - Respiratory Respiratory exam: Present: CTAB. Absent: accessory muscle use, rales, rhonchi, wheezes - Cardiovascular Cardiovascular exam: Present: RRR, +S1, +S2. Absent: diastolic murmur, gallop, rubs, systolic murmur - GI/Abdominal GI/Abdominal exam: Present: normal bowel sounds, soft, no peritoneal signs. Absent: distended, tenderness Additional comments: PEG and suprapubic cath - Extremities Exam Extremities exam: Present: warm, radial pulses palpable and symetrical. Absent : calf tenderness, cyanotic, pedal edema - Neurological Exam Neurological exam: Present: alert, oriented X3 - Psychiatric Psychiatric exam: Present: normal affect, normal mood
--- NOTE | 2016-10-14 13:57 | Physician Discharge Referral ---
Home Health/Hosp Referral Info Transfer to: Home Health Provider in Charge Post Discharge: PCP - Diagnosis (1) Sepsis Priority: Primary Status: Resolved (2) UTI (urinary tract infection) Priority: Primary Status: Acute (3) Atelectasis of both lungs Priority: Secondary Status: Resolved (4) Diabetes mellitus Priority: Secondary Status: Chronic (5) DVT prophylaxis Status: Acute (6) Neurogenic bladder Priority: Secondary Status: Chronic (7) Hypertension Priority: Secondary Status: Chronic (8) Paraplegia Priority: Secondary Status: Chronic - Respiratory Orders Smoking Cessation: Smoking cessation has been advised. For more information, call the [place] Tobacco Quit Line at 7-114-GCSBNOW. - Services Needed Following services are medically necessary services: Nursing, Home Health Aide, Physical Therapy, Occupational Therapy, Home Infusion - Transfer Medications Prescriptions: Piperacillin/Tazobactam [Zosyn] 4.5 gm IVPB Q8H #42 vial Home Medications: Ascorbic Acid [Vitamin C] 500 mg PO DAILY 03/20/15 [History] Carvedilol 6.25 mg GTUBE DAILY 03/20/15 [History] Loratadine [Claritin] 10 mg GTUBE DAILY 03/20/15 [History] Metformin HCl [Glucophage] 1,000 mg PO BID 03/20/15 [History] Ondansetron HCl [Zofran] 4 mg PO Q6HR PRN #30 tablet 10/04/15 [Rx] Quetiapine Fumarate [Seroquel] 400 mg GTUBE HS 30 Days 10/29/15 [Rx] risperiDONE [RisperDAL] 0.5 mg PO BID #30 tablet 10/29/15 [Rx] Albuterol Sulfate [Ventolin Hfa] 2 puff IH Q4H PRN 11/02/15 [History] Cyanocobalamin (Vitamin B-12) [Vitamin B-12] 500 mcg PO DAILY 05/10/16 [History] Docusate Sodium [Docu Liquid] 100 mg PO BID 05/10/16 [History] Oxycodone HCl 15 mg PO Q6H PRN 05/10/16 [History] Ranitidine HCl [Acid Metallurgical Specialist] 150 mg PO DAILY 05/10/16 [History] Sennosides [Senna] 17.6 mg PO HS 05/10/16 [History] Valproic Acid Oral Soln [Depakene Oral Soln] 250 mg PO TID 05/10/16 [History] Butalb/Acetaminophen/Caffeine [Esgic 50-325-40 mg Tablet] 1 tab PO TID PRN 07/16 [History] Morphine Sulfate [Morphine Oral Solution] 20 mg PO Q4H PRN 07/16/16 [History] Pregabalin [Lyrica] 150 mg PO BID 07/16/16 [History] Promethazine [Phenergan] 25 mg PO TID PRN 07/16/16 [History] Oxybutynin [Ditropan] 5 mg GTUBE TID 07/30/16 [History] Buspirone HCl [Buspar] 10 mg PO BID 10/10/16 [History] Lisinopril [Zestril] 10 mg PO DAILY 10/10/16 [History] Na Phos,M-B/Na Phos,Di-Ba [Fleet Enema Extra] 230 ml RC DAILY PRN 10/10/16 [ History] Nut.tx.gluc.intoler,Lac-Fr,Soy [Glucerna 1.5 Timoteo] 1 can PO AD 10/10/16 [History] Polyethylene Glycol 3350 [Smoothlax] 17 gm PO DAILY PRN 10/10/16 [History] clonazePAM [Klonopin] 1 mg GTUBE TAPER 10/10/16 [History] Piperacillin/Tazobactam [Zosyn] 4.5 gm IVPB Q8H #42 vial 10/13/16 [Rx] Allergies/Adverse Reactions: Allergies azithromycin [From Zithromax] Allergy (Verified 10/10/16 00:08) Anaphylaxis linezolid [From Zyvox] Allergy (Verified 10/10/16 00:08) Anaphylaxis Certification: Further, I certify that my clinical findings support that this patient is homebound (i.e. absences from home require considerable and taxing effort and are for medical reasons or evangelical services or infrequently or short duration when for other reasons) because: Homebound Reason: Patient requires assistance of a person or device to safely leave home, Leaving home requires considerable and taxing effort due to condition Attestation: My signature below is to certify that this patient is under my care and that I, or nurse practitioner, or a physician's clinical assistant professor working with me, has a face-to -face encounter with this patient.
[2016-10-14] MEDS: Acetaminophen/Butalbital/CaffeineTABLET PO PRN (18:42)
[2016-10-15] MEDS: Piperacillin/Tazobactam 3.375 GM in D5% in Water (Mini-Bag+) 100 ML IVPB SCH ×2 (01:16→09:44)
[2016-10-15] MEDS: *HR* Morphine Soln 10 MG/5 ML UDC PO PRN (01:26)
[2016-10-15] MEDS: Lactobacillus 1 EACH CAP.SPRINK PO SCH ×2 (02:43→10:01)
[2016-10-15] MEDS: *HR* OxyCODONE Immed Rel 15 MG TABLET PO PRN (04:34)
[2016-10-15] MEDS: *HR* Heparin 5,000 UNIT/ML VIAL SQ SCH (05:59)
--- NOTE | 2016-10-15 09:26 | Internal Med Progress Note ---
Date of Encounter: 10/15/16 Time of Encounter: 09:24 - Assessment and plan (1) Sepsis Current Visit: Yes Status: Resolved Qualifiers: Sepsis type: sepsis due to unspecified organism Qualified Code(s): A41.9 - Sepsis, unspecified organism (2) UTI (urinary tract infection) Current Visit: No Status: Acute Qualifiers: Urinary tract infection type: catheter-associated UTI Indwelling urinary catheter type: unspecified Encounter type: initial encounter Qualified Code( s): T83.511A - Infection and inflammatory reaction due to indwelling urethral catheter, initial encounter; N39.0 - Urinary tract infection, site not specified (3) Atelectasis of both lungs Current Visit: Yes Status: Resolved (4) Diabetes mellitus Current Visit: Yes Status: Chronic Qualifiers: Diabetes mellitus type: type 2 Diabetes mellitus complication status: with unspecified complications Diabetes mellitus alf insulin use: without equipment operator intermodal yard use Qualified Code(s): E11.8 - Type 2 diabetes mellitus with unspecified complications (5) DVT prophylaxis Current Visit: Yes Status: Acute (6) Neurogenic bladder Current Visit: Yes Status: Chronic (7) Hypertension Current Visit: Yes Status: Chronic Qualifiers: Hypertension type: essential hypertension Qualified Code(s): I10 - Essential (primary) hypertension (8) Paraplegia Current Visit: Yes Status: Chronic - Subjective Interval history: Pt seen and examined at bedside. denies any discomfort at this time. Pt was discharged to home yesterday however was not able to leave as his home infusion of IV antibiotics was not set up. Patient's IV abx home infusion will be set up today and he will be discharged to home today with IV abx for a total of 14days. - Constitutional Vitals: Temp Pulse Resp BP Pulse Ox 98 F 85 14 151/95 96 10/15/16 07:15 10/15/16 07:15 10/15/16 07:15 10/15/16 07:15 10/15/16 07:15 General appearance: Present: A&O X 3, pleasant, no acute distress - Head Head exam: Present: atraumatic, normocephalic - Eye Eye exam: Present: normal appearance, conjuntiva pink, sclera anicteric - Respiratory Respiratory exam: Present: CTAB. Absent: respiratory distress, wheezes - Cardiovascular Cardiovascular exam: Present: RRR, +S1, +S2. Absent: diastolic murmur, gallop, rubs, systolic murmur - GI/Abdominal GI/Abdominal exam: Present: normal bowel sounds, soft. Absent: tenderness Additional comments: PEG and suprapubic cath - Extremities Exam Extremities exam: Present: warm, radial pulses palpable and symetrical. Absent : calf tenderness, cyanotic, pedal edema - Neurological Exam Neurological exam: Present: alert, oriented X3 - Psychiatric Psychiatric exam: Present: normal affect, normal mood Internal Medicine: Result - Labs CBC & Chem 7: 10/14/16 05:24 10/14/16 05:24 - ABG Interpretation ABG results: ABG ABG pH 7.23 pH Units (7.32-7.45) L 10/09/16 21:25 ABG pCO2 81 mmHg (35-45) H* 10/09/16 21:25 ABG pO2 73 mmHg (85-104) L 10/09/16 21:25 ABG O2 Saturation 91 % (95-98) L 10/09/16 21:25 PT/INR, D-dimer PT 14.4 Seconds (9.4-12.1) H 10/09/16 20:49 Consult Discharge Plan - Plan Additional Instructions: Please follow up with your primary care physician and infectious disease specialist within five days after your discharge from the hospital. Please continue IV abx as prescribed. Please resume all other home medications as prescribed by your primary care physician. Referrals: NO,PCP [Non-Partnered Physician] - 10/26/16 10:20 am (Please follow up with ) Prescriptions: Piperacillin/Tazobactam [Zosyn] 4.5 gm IVPB Q8H #42 vial
[2016-10-15] MEDS: Insulin LISPRO 300 UNITS/3 ML VIAL SQ SCH ×2 (10:00→12:28)
[2016-10-15] MEDS: Cyanocobalamin (B-12) 1,000 MCG TABLET PO SCH (10:01)
[2016-10-15] MEDS: Valproic Acid Oral Soln 250 MG/5 ML UDC PO SCH ×2 (10:01→14:32)
[2016-10-15] MEDS: Ascorbic Acid 500 MG TABLET PO SCH (10:01)
[2016-10-15] MEDS: risperiDONE 0.25 MG TABLET PO SCH (10:01)
[2016-10-15] MEDS: Pregabalin 75 MG CAPSULE PO SCH (10:01)
[2016-10-15] MEDS: Docusate Oral Soln 100 MG/10 ML UDC PO SCH (10:01)
[2016-10-15] MEDS: Nicotine 21 MG PATCH.TD24 TD SCH (10:01)
[2016-10-15] MEDS: Insulin DETEMIR 100 UNIT/ML X5UNITS SQ SCH (10:04)
--- NOTE | 2016-10-15 11:05 | Infectious Disease Progress No ---
Date of Encounter: 10/15/16 Time of Encounter: 11:03 - Assessment and Plan (1) Sepsis Current Visit: Yes Status: Resolved The patient had three SIRS criteria on admission. Likely secondary to UTI. Improved. WBC has normalized. Tachycardia has resolved. The patient has been afebrile. Blood cultures drawn 10/09/16 are NGTD x 2 sets. Qualifiers: Sepsis type: sepsis due to unspecified organism Qualified Code(s): A41.9 - Sepsis, unspecified organism (2) UTI (urinary tract infection) Current Visit: Yes Status: Acute CAUTI. Causative organism Escherichia coli ESBL and PSEA. Because the patient has had several different causative organisms, it is unlikely that the patient is colonized. This is likely a re-infection rather than a relapse/treatment failure. Likely secondary to the patient's neurogenic bladder and chronic indwelling mireles catheter. Consider urology consult as an outpatient to evaluate for additional possible causes. Status post SPT replacement by Dr. Salgado. Continue Zosyn 3.375 grams IV Q8H. When ready for discharge, can continue Zosyn , but change dose to 4.5 grams IV Q8H. Duration of treatment depends on the clinical picture, but would recommend 14 days of treatment from the day the catheter is switched out. Monitor renal function and dose-adjust antibiotics. Qualifiers: Urinary tract infection type: catheter-associated UTI Indwelling urinary catheter type: indwelling urethral catheter Encounter type: initial encounter Qualified Code(s): T83.511A - Infection and inflammatory reaction due to indwelling urethral catheter, initial encounter; N39.0 - Urinary tract infection , site not specified (3) Thrombocytopenia Current Visit: Yes Status: Acute Etiology unclear. No evidence of active bleeding. Continue to trend. Management per the primary team. (4) Neurogenic bladder Current Visit: Yes Status: Chronic Secondary to paraplegia. Continue chronic indwelling mireles catheter. (5) Paraplegia Current Visit: Yes Status: Chronic Secondary to fall in 2010. Continue pressure-alleviating strategies. (6) Diabetes mellitus Current Visit: Yes Status: Chronic Recommend aggressive glucose monitoring and control to promote wound healing. Management per the primary team. Qualifiers: Diabetes mellitus type: type 2 Diabetes mellitus complication status: with unspecified complications Diabetes mellitus regional sales coordinator insulin use: without mcc use Qualified Code(s): E11.8 - Type 2 diabetes mellitus with unspecified complications - Subjective Interval history: Patient seen and examined. No acute events noted overnight. Patient is pending discharge home today once he receives his AM dose of IV antibiotics. Patient states he feels well today. He denies any fevers or chills or rigors. He denies any chest pain, shortness of breath, or cough. He denies any nausea, vomiting, diarrhea, or constipation. He reports that his last bowel movement was three days ago. He has a suprapubic catheter that is draining clear yellow urine. He denies any abdominal pain, but states he does not have an appetite and receives intermittent PEG tube feedings. He complains of chronic diffuse pain, but offers no specific complaints. He denies any oral thrush or new skin lesions. He is anxious to go home today. Infect Dis PN-Objective Data - Labs CBC & Chem 7: 10/14/16 05:24 10/14/16 05:24 Labs: Laboratory Results - last 24 hr 10/14/16 10/14/16 10/15/16 10:51 15:58 08:03 POC Glucose 279 H 240 H 198 H Exam - Constitutional Vitals: Temp Pulse Resp BP Pulse Ox 98 F 85 14 151/95 96 10/15/16 07:15 10/15/16 07:15 10/15/16 07:15 10/15/16 07:15 10/15/16 07:15 General appearance: average body habitus, cooperative, no acute distress - Head Head exam: Present: atraumatic, normal inspection, normocephalic - Eye Eye exam: Present: EOMI, normal appearance, PERRL Pupils: Present: normal accommodation - ENT ENT exam: Present: mucous membranes moist - Neck Neck exam: Present: normal inspection - Respiratory Respiratory exam: Present: CTAB. Absent: rales, respiratory distress, rhonchi, wheezes - Cardiovascular Cardiovascular exam: Present: RRR, +S1, +S2 - GI/Abdominal GI/Abdominal exam: Present: normal bowel sounds, soft. Absent: distended, tenderness Additional comments: Suprapubic catheter noted to be draining clear yellow urine. PEG tube noted to the epigastric region, currently clamped. - Extremities Exam Extremities exam: Absent: joint swelling, pedal edema, tenderness Additional comments: Muscle atrophy and paralysis noted to the BLE. - Neurological Exam Neurological exam: Present: alert, oriented X3. Absent: no focal deficits ( Paralysis noted to the BLE.) - Psychiatric Psychiatric exam: Present: normal affect, normal mood - Skin Skin exam: Present: dry, intact, normal color, warm - Additional findings Additional findings: EPIV noted to the left upper extremity with transparent dressing C/D/I. Consult Discharge Plan - Plan Additional Instructions: Please follow up with your primary care physician and infectious disease specialist within five days after your discharge from the hospital. Please continue IV abx as prescribed. Please resume all other home medications as prescribed by your primary care physician. Referrals: NO,PCP [Non-Partnered Physician] - 10/26/16 10:20 am (Please follow up with ) Prescriptions: Piperacillin/Tazobactam [Zosyn] 4.5 gm IVPB Q8H #42 vial
[2016-10-15 15:40] VITALS: BP 158/96
== END 2016-10-15 16:00 | disposition home health service (06) | DRG 698 ==
LOC: 2ANU 19:01 → EMEROO 19:01 → 2ANU 10-10 00:40 → SUATTDRO 10-10 02:33 → 2ANU 10-14 08:47
PROVIDERS: ADMIT Internal Medicine; ATTEND Internal Medicine

== ENCOUNTER 2016-11-05 17:43 | Inpatient (IN) ==
[2016-11-05 19:17] LABS: Hematocrit 55.7 % (37.5-50.1); Hemoglobin 18.9 g/dL (12.9-16.9); Mean Corpuscular HGB Conc 33.9 g/dL (31.6-35.5); Mean Corpuscular Hemoglobin 33.2 pg (28.0-33.3); Mean Corpuscular Volume 97.7 fL (83.0-100.0); Mean Platelet Volume 11.6 fL (9.4-12.4); Platelet Count 134 K/mcL (140-400); Red Cell Distribution Width 14.1 % (11.5-14.5)
[2016-11-05 20:30] LABS: BUN/Creatinine Ratio 31 (6-26); Blood Urea Nitrogen 22 mg/dL (8-26); Calcium 10.5 mg/dL (8.6-10.8); Carbon Dioxide 29 mEq/L (19-29); Chloride 92 mEq/L (98-109); Glucose 215 mg/dL (70-99); Osmolality,Calculated 284 (280-300); Potassium 5.4 mEq/L (3.5-4.5); Sodium 132 mEq/L (136-145); eGFR For African Americans > 60 (> 60); eGFR For Non-African Americans > 60 (> 60)
--- NOTE | 2016-11-05 20:47 | Emergency Department Note ---
Disposition Clinical Impression: Altered level of consciousness, Dehydration, Lactate blood increase Disposition: Admitted As Inpatient Condition: Fair Referrals: Kobe Bailon DO [Primary Care Provider] - Forms: Work/School Release, ED Satisfaction Letter General Adult HPI - General Chief complaint: ED General Medical Stated complaint: ECF placement Time Seen by Provider: 11/05/16 18:08 Source: patient, EMS Nursing Notes Reviewed: Yes Vital Signs Reviewed: Yes - History of Present Illness HPI Narrative: Patient presents per EMS and I did see the patient upon arrival and also spoke with the paramedics and the patient states that the caregiver called because of confusion however the paramedics felt the patient was not used. The patient denies any pain which is new and specifically no new pain in the head, neck, chest, abdomen or back but is not able to give an adequate history secondary to his medical condition. The patient does have some cough. No rhinorrhea or sneezing. No fever or blurred vision. No blood in the urine or stool. No new pain or numbness of extremities skin rash or bruising of the skin. Social history: No smoking Pain Scale: 0 - Related Data Home Medications Medication Instructions Recorded Confirmed Ascorbic Acid [Vitamin C] 500 mg PO DAILY 03/20/15 11/05/16 Carvedilol 6.25 mg GTUBE DAILY 03/20/15 11/05/16 Loratadine [Claritin] 10 mg GTUBE DAILY 03/20/15 11/05/16 Metformin HCl [Glucophage] 1,000 mg PO BID 03/20/15 11/05/16 Albuterol Sulfate [Ventolin Hfa] 2 puff IH Q4H PRN 11/02/15 11/05/16 Cyanocobalamin (Vitamin B-12) 500 mcg PO DAILY 05/10/16 11/05/16 [Vitamin B-12] Docusate Sodium [Docu Liquid] 100 mg PO BID 05/10/16 11/05/16 Oxycodone HCl 15 mg PO Q6H PRN 05/10/16 11/05/16 Ranitidine HCl [Acid English Drawer] 150 mg PO DAILY 05/10/16 11/05/16 Sennosides [Senna] 17.6 mg PO HS 05/10/16 11/05/16 Valproic Acid Oral Soln [Depakene 250 mg PO TID 05/10/16 11/05/16 Oral Soln] Butalb/Acetaminophen/Caffeine 1 tab PO TID PRN 07/16/16 11/05/16 [Esgic 50-325-40 mg Tablet] Morphine Sulfate [Morphine Oral 20 mg PO Q4H PRN 07/16/16 11/05/16 Solution] Pregabalin [Lyrica] 150 mg PO BID 07/16/16 11/05/16 Promethazine [Phenergan] 25 mg PO TID PRN 07/16/16 11/05/16 Oxybutynin [Ditropan] 5 mg GTUBE TID 07/30/16 11/05/16 Buspirone HCl [Buspar] 10 mg PO BID 10/10/16 11/05/16 Lisinopril [Zestril] 10 mg PO DAILY 10/10/16 11/05/16 Na Phos,M-B/Na Phos,Di-Ba [Fleet 230 ml RC DAILY PRN 10/10/16 11/05/16 Enema Extra] Nut.tx.gluc.intoler,Lac-Fr,Soy 1 can PO AD 10/10/16 11/05/16 [Glucerna 1.5 Timoteo] Polyethylene Glycol 3350 17 gm PO DAILY PRN 10/10/16 11/05/16 [Smoothlax] Previous Rx's Medication Instructions Recorded Ondansetron HCl [Zofran] 4 mg PO Q6HR PRN #30 tablet 10/04/15 Quetiapine Fumarate [Seroquel] 400 mg GTUBE HS 30 Days 10/29/15 risperiDONE [RisperDAL] 0.5 mg PO BID #30 tablet 10/29/15 Allergies Allergy/AdvReac Type Severity Reaction Status Date / Time azithromycin [From Zithromax] Allergy Anaphylaxis Verified 10/10/16 00:08 linezolid [From Zyvox] Allergy Anaphylaxis Verified 10/10/16 00:08 Review of Systems: The patient does have some cough. No rhinorrhea or sneezing. No fever or blurred vision. No blood in the urine or stool. No new pain or numbness of extremities skin rash or bruising of the skin. Past Medical History - Past Medical History Medical history: Reports: diabetes, GERD, hyperlipidemia, hypertension, other Surgical history: Reports: other (Back surgery 2) Psychiatric history: Reports: bipolar, schizophrenia - Social History Smoking Status: Current every day smoker Smokeless Tobacco Status: No Alcohol use: Reports: none Drug use: Reports: none Physical Exam CONSTITUTIONAL: Alert and oriented X3 that she does know the name of the hospital and month and his age, well-nourished, chronically ill appearing, in no apparent distress. The patient is not ambulatory and does have atrophy bilateral lower extremities HEAD: Normocephalic; atraumatic. EYES: PERRL, no scleral icterus. NOSE: The nose is normal in appearance without rhinorrhea RESP: Normal chest excursion with respiration; breath sounds clear and equal bilaterally; no wheezes, rhonchi, or rales CARD: Regular rhythm, without murmurs, rub or gallop ABD: Non-distended; non-tender, soft,without rigidity, rebound or guarding, G- tube in place SKIN: Normal for age and race; warm and dry; no apparent lesions : Martínez catheter in place with clear urine in the Martínez bag Extremities: Atrophied bilateral lower extremities, no swelling, no erythema or signs of infection - General General appearance: in no apparent distress Course Vital Signs Temperature 98.2 F 11/05/16 17:46 Pulse Rate 96 11/05/16 17:46 Respiratory Rate 20 11/05/16 17:46 Blood Pressure 165/105 11/05/16 17:46 O2 Sat by Pulse Oximetry 88 11/05/16 17:46 Temperature 98.2 F 11/05/16 17:46 Pulse Rate 91 11/05/16 20:03 Respiratory Rate 20 11/05/16 20:03 Blood Pressure 132/82 11/05/16 20:03 O2 Sat by Pulse Oximetry 93 11/05/16 20:03 Oxygen Delivery Oxygen Delivery Nasal Cannula Medical Decision Making - [facility] Narrative Medical decision making narrative: I did review the patient's labs. I did go back and see him again on multiple occasions. His oxygen saturation is 94% on 2 L the patient will be sent home. He wants to go home. I did discuss this with him. I did not localized acute life-threatening etiology occurring at this time. 2047 I have gone back and several times a see the patient. He is difficult to arouse but when I do he is able to speak however it does seem that he is extremely weak. It is also concerning that his lactate has returned at 3.9 and is mildly hyperkalemic. I did write for 1 L IV fluid bolus, I will write for Rocephin 2 g, urine results are pending. This could represent early sepsis cryptic sepsis or could be from significant dehydration the patient does need observed to ensure he does not decompensate. I discussed the case with Dr. Thorpe who accepts him for admission 2126 - Medical Records Medical records reviewed: Yes I reviewed the patient's medical records. - Lab Data Lab results reviewed: Yes I reviewed the patient's lab results. Result diagrams: 11/05/16 18:57 11/05/16 19:58 Lab Results 11/05/16 11/05/16 11/05/16 Range/Units 18:57 18:57 19:58 WBC 5.7 (4.3-11.1) K/mcL RBC 5.70 H (4.19-5.50) M/mcL Hgb 18.9 H (12.9-16.9) g/dL Hct 55.7 H (37.5-50.1) % MCV 97.7 (83.0-100.0) fL MCH 33.2 (28.0-33.3) pg MCHC 33.9 (31.6-35.5) g/dL RDW 14.1 (11.5-14.5) % Plt Count 134 L (140-400) K/mcL MPV 11.6 (9.4-12.4) fL Sodium 132 L (136-145) mEq/L Potassium 5.4 H (3.5-4.5) mEq/L Chloride 92 L (98-109) mEq/L Carbon Dioxide 29 (19-29) mEq/L BUN 22 (8-26) mg/dL Creatinine 0.70 L (0.72-1.25) mg/dL Est GFR ( Amer) > 60 (> 60) Est GFR (Non-Af Amer) > 60 (> 60) BUN/Creatinine Ratio 31 H (6-26) Glucose 215 H (70-99) mg/dL Calculated Osmolality 284 (280-300) Lactic Acid (0.5-2.2) mmol/L Calcium 10.5 (8.6-10.8) mg/dL Specimen Rejected Hemolyzed 06/16/17 Range/Units 19:58 WBC (4.3-11.1) K/mcL RBC (4.19-5.50) M/mcL Hgb (12.9-16.9) g/dL Hct (37.5-50.1) % MCV (83.0-100.0) fL MCH (28.0-33.3) pg MCHC (31.6-35.5) g/dL RDW (11.5-14.5) % Plt Count (140-400) K/mcL MPV (9.4-12.4) fL Sodium (136-145) mEq/L Potassium (3.5-4.5) mEq/L Chloride (98-109) mEq/L Carbon Dioxide (19-29) mEq/L BUN (8-26) mg/dL Creatinine (0.72-1.25) mg/dL Est GFR ( Amer) (> 60) Est GFR (Non-Af Amer) (> 60) BUN/Creatinine Ratio (6-26) Glucose (70-99) mg/dL Calculated Osmolality (280-300) Lactic Acid 3.9 H (0.5-2.2) mmol/L Calcium (8.6-10.8) mg/dL Specimen Rejected - Radiology Data Radiology results reviewed: Yes I reviewed the patient's radiology results. Chest X-Ray 11/05/16 18:08 IMPRESSION: 1. Low lung volumes with bibasilar atelectasis. D/ / Wilmer Shore MD / Wilmer Shore MD Interpreting Provider: Wilmer Shore MD
[2016-11-05] MEDS ORDERED: 0.9 % Sodium Chloride 1,000 ML IVC ONE ×2 (21:06→23:05)
[2016-11-05 21:47] LABS: Bilirubin,Urine Negative (Negative); Blood,Urine Moderate (Negative); Clarity,Urine Turbid (Clear); Color,Urine Dark Yellow (Yellow); Glucose,Urine (UA) Normal (Normal); Ketones,Urine Negative (Negative); Leukocyte Esterase,Urine Large (Negative); Nitrite,Urine Negative (Negative); Protein,Urine 100 mg/dL (Neg-Trace); Specific Gravity,Urine 1.024 (1.010-1.025); Urobilinogen,Urine Normal (Normal)
[2016-11-05 21:49] LABS: Bacteria,Urine Many per hpf (None-Few); Hyaline Casts,Urine Few per lpf (None-Few); RBC,Urine 15-30 per hpf (0-3); Squamous Epithelial Cell,Urine Many per lpf (None-Few); WBC,Urine TNTC per hpf (0-3)
[2016-11-05 22:01] LABS: Calcium Oxalate Crystals,Urine Present; Triple Phosphate Crystal,Urine Present
[2016-11-05 22:04] LABS: Yeast,Urine Moderate per hpf (None Seen)
[2016-11-05] MEDS ORDERED: 0.9 % Sodium Chloride 500 ML IVC ONE (23:05)
[2016-11-05] MEDS ORDERED: Calcium Gluconate 1,000 MG in D5% in Water 100 ML IVPB ONE (23:13)
--- NOTE | 2016-11-05 23:15 | Internal Med History&Physical ---
Date of Encounter: 11/05/16 Time of Encounter: 23:14 Assessment and Plan (1) Urinary tract infection Current visit: Yes Status: Acute Patient has suprapubic catheter with recurrent urinary tract infection with multidrug resistant organisms. He was discharged from the hospital on the 26 to complete 2 weeks of Zosyn and patient mentioned that he completed them. Urinalysis positive. I will start the patient on cefepime 2 g twice a day. He is not hypotensive if no improvement or becomes hypotensive Will add gram- positive coverage. Await culture and sensitivities. Qualifiers: Qualified Code(s): N39.0 - Urinary tract infection, site not specified (2) Diabetes mellitus Current visit: Yes Status: Acute Sliding scale insulin Qualifiers: Qualified Code(s): E11.9 - Type 2 diabetes mellitus without complications (3) Acute metabolic encephalopathy Current visit: No Status: Acute Due to urinary tract infection. In addition patient is on opiates at home, morphine oxycodone which may be partly contributing to his stuporness. Hold opiates. (4) Atelectasis of both lungs Current visit: Yes Status: Acute Incentive spirometry. Internal Medicine - H&P: HPI Chief complaint: weakness and confusion History of present illness: Mr. Jaramillo is a 51 year old male who was paraplegic with neurogenic bladder status post suprapubic catheter placement and recurrent urinary tract infections was just discharged from the hospital on 10/15/2016 with 2 weeks of IV Zosyn for urine tract infection presents to the emergency room today with lethargy and confusion. Patient is steeper is unable to provide detailed history no family members are available. Reportedly patient has been more lethargic and confused. He mentioned that he completed IV antibiotics that he was supposed to take when he left the hospital 3 weeks ago. Urinalysis to show evidence of urinary tract infection. He had multiple prior unanimous chest infections with Pseudomonas, Klebsiella, ESBL positive proteus. He denies any loin pain or abdominal pain. No fevers in the emergency room. He is Having nonproductive cough. Past Med Surg Social Fam HX - Past Medical History Medical history: diabetes, GERD, hyperlipidemia, hypertension, other Psychiatric history: bipolar, schizophrenia - Past Surgical History Surgical History: other - Social History Smoking Status: Current every day smoker Smokeless Tobacco Status: No Alcohol use: none Drug use: none - Family History Mother Adopted: No Family Member Ethnicity: Non- Living Status: Hx Family Cardiac Disorders: No Hx Family Respiratory Disorders: No Hx Family Cancer: No Hx Family GI Disorders: No Hx Family Endocrine Disorder: No Hx Family Neuromuscular Disorders: No Hx Family Neurologic Disorders: No Hx Family HEENT Disorders: No Hx Family Autoimmune Disorders: No Internal Medicine - H&P: Meds Ascorbic Acid [Vitamin C] 500 mg PO DAILY 03/20/15 [History] Carvedilol 6.25 mg GTUBE DAILY 03/20/15 [History] Loratadine [Claritin] 10 mg GTUBE DAILY 03/20/15 [History] Metformin HCl [Glucophage] 1,000 mg PO BID 03/20/15 [History] Ondansetron HCl [Zofran] 4 mg PO Q6HR PRN #30 tablet 10/04/15 [Rx] Quetiapine Fumarate [Seroquel] 400 mg GTUBE HS 30 Days 10/29/15 [Rx] risperiDONE [RisperDAL] 0.5 mg PO BID #30 tablet 10/29/15 [Rx] Albuterol Sulfate [Ventolin Hfa] 2 puff IH Q4H PRN 11/02/15 [History] Cyanocobalamin (Vitamin B-12) [Vitamin B-12] 500 mcg PO DAILY 05/10/16 [History] Docusate Sodium [Docu Liquid] 100 mg PO BID 05/10/16 [History] Oxycodone HCl 15 mg PO Q6H PRN 05/10/16 [History] Ranitidine HCl [Acid Foot Gatherer] 150 mg PO DAILY 05/10/16 [History] Sennosides [Senna] 17.6 mg PO HS 05/10/16 [History] Valproic Acid Oral Soln [Depakene Oral Soln] 250 mg PO TID 05/10/16 [History] Butalb/Acetaminophen/Caffeine [Esgic 50-325-40 mg Tablet] 1 tab PO TID PRN 07/16 [History] Morphine Sulfate [Morphine Oral Solution] 20 mg PO Q4H PRN 07/16/16 [History] Pregabalin [Lyrica] 150 mg PO BID 07/16/16 [History] Promethazine [Phenergan] 25 mg PO TID PRN 07/16/16 [History] Oxybutynin [Ditropan] 5 mg GTUBE TID 07/30/16 [History] Buspirone HCl [Buspar] 10 mg PO BID 10/10/16 [History] Lisinopril [Zestril] 10 mg PO DAILY 10/10/16 [History] Na Phos,M-B/Na Phos,Di-Ba [Fleet Enema Extra] 230 ml RC DAILY PRN 10/10/16 [ History] Nut.tx.gluc.intoler,Lac-Fr,Soy [Glucerna 1.5 Timoteo] 1 can PO AD 10/10/16 [History] Polyethylene Glycol 3350 [Smoothlax] 17 gm PO DAILY PRN 10/10/16 [History] Allergies azithromycin [From Zithromax] Allergy (Verified 10/10/16 00:08) Anaphylaxis linezolid [From Zyvox] Allergy (Verified 10/10/16 00:08) Anaphylaxis All Systems PM: A 10-system review of systems was performed and is negative for pertinent findings except as documented above in the HPI. Review of systems: 10 point review of systems is negative except for HPI. - Constitutional Vitals: Temp Pulse Resp BP Pulse Ox 97.4 F L 85 14 135/86 93 11/05/16 22:32 11/05/16 22:32 11/05/16 22:32 11/05/16 22:32 11/05/16 22:32 Exam: Gen.: patient is stuporous not in distress. Cardiac: normal S1 S2 no additional sounds or murmurs chest: fair air entry. no active wheezing. No crackles or bronchial breathing. abdomen: soft nontender nondistended normal bowel sounds. G-tube and suprapubic catheter in place neuro: no focal deficit Internal Med - H&P Results - Labs CBC & Chem 7: 11/05/16 18:57 11/05/16 19:58
[2016-11-06] MEDS: 0.9 % Sodium Chloride 1,000 ML IVC SCH ×2 (00:30→12:47)
[2016-11-06] MEDS: Famotidine 20 MG/2 ML VIAL IVP SCH ×2 (05:33→18:49)
[2016-11-06] MEDS: Cefepime HCl 2,000 MG in D5% in Water (Mini-Bag+) 100 ML IVPB SCH ×2 (05:33→18:49)
[2016-11-06] MEDS ORDERED: *HR* Heparin 5,000 UNIT/ML VIAL SQ SCH (06:00)
[2016-11-06 07:45] LABS: BUN/Creatinine Ratio 22 (6-26); Blood Urea Nitrogen 14 mg/dL (8-26); Calcium 9.6 mg/dL (8.6-10.8); Carbon Dioxide 29 mEq/L (19-29); Chloride 97 mEq/L (98-109); Glucose 281 mg/dL (70-99); Magnesium 1.5 mg/dL (1.6-2.6); Osmolality,Calculated 291 (280-300); Potassium 4.4 mEq/L (3.5-4.5); Sodium 135 mEq/L (136-145); eGFR For African Americans > 60 (> 60); eGFR For Non-African Americans > 60 (> 60)
[2016-11-06 08:18] LABS: Basophils # 0.1 K/mcL (0.0-0.2); Eosinophils # 0.1 K/mcL (0.0-0.6); Eosinophils % 1.2 %; Hemoglobin 17.6 g/dL (12.9-16.9); Immature Granulocytes % 1.3 % (0-4); Lymphocytes # 0.9 K/mcL (0.6-4.6); Lymphocytes % 14.6 %; Mean Corpuscular HGB Conc 33.2 g/dL (31.6-35.5); Mean Corpuscular Hemoglobin 32.7 pg (28.0-33.3); Mean Corpuscular Volume 98.3 fL (83.0-100.0); Mean Platelet Volume 11.8 fL (9.4-12.4); Monocytes # 0.4 K/mcL (0.0-1.3); Monocytes % 6.7 %; Neutrophils # 4.5 K/mcL (1.6-8.9); Platelet Count 124 K/mcL (140-400); Red Blood Count 5.39 M/mcL (4.19-5.50); Red Cell Distribution Width 14.3 % (11.5-14.5); Segmented Neutrophils % 75.2 %
[2016-11-06] MEDS: Valproic Acid Oral Soln 250 MG/5 ML UDC PO SCH ×3 (09:09→20:18)
[2016-11-06] MEDS: Docusate Oral Soln 100 MG/10 ML UDC PO SCH ×2 (09:09→20:18)
[2016-11-06] MEDS: risperiDONE 0.25 MG TABLET PO SCH ×2 (09:09→20:18)
[2016-11-06] MEDS: Insulin LISPRO 300 UNITS/3 ML VIAL SQ SCH ×4 (09:10→20:20)
[2016-11-06 11:09] LABS: C-Reactive Protein 33 mg/L (Less than 5)
--- NOTE | 2016-11-06 11:19 | Internal Med Progress Note ---
Date of Encounter: 11/06/16 Time of Encounter: 09:45 - Assessment and plan (1) UTI (urinary tract infection) due to urinary indwelling catheter Current Visit: No Status: Acute Assessment and plan: Patient with history of multiple urinary tract infections with multiple resistance and secondary to his indwelling catheter. Checking lactic acid levels, we will consider adding Gram-positive coverage as well pending clinical picture. Last time he was admitted- discharged on 10/14/16- ID was brought onboard and he was sent home on IV Zosyn for 2 weeks. Treating based upon most recent urine culture with Cefepime. (2) Acute metabolic encephalopathy Current Visit: No Status: Acute Assessment and plan: Patient is alert and oriented 3 during my interaction with him. He appears slightly oversedated and medicated but is still stating that his pain is severe and uncontrolled. Urinary tract infection noted, started on cefepime in keeping with most recent urine culture report. Lactic acidosis noted-we will recheck, if not trended down, will add gram-positive coverage. He did receive 30/kg bolus. Tachycardia is trending down, he is hypertensive but is also in severe pain. Overall, his vital signs appear to be improving, repeat lactic acid is pending. He is currently on 5 L per nasal cannula continuously, unknown if the patient is on oxygen at home-we will investigate. We will continue to monitor closely. (3) Chronic pain Current Visit: Yes Status: Chronic Assessment and plan: [facility] report checks out with prescriptions for morphine liquid solution, oxycodone, Lyrica, and clonazepam. Regarding pain control, he receives 80 mg of liquid morphine per day which is equivalent to approximately 14 mg IV- ordered at this time. Oxycodone 15 mg every 6 hours continued, will trend his response. (4) SIRS (systemic inflammatory response syndrome) Current Visit: Yes Status: Acute Assessment and plan: See prior note for acute metabolic encephalopathy (5) Lactic acidosis Current Visit: Yes Status: Acute Assessment and plan: Lactic acid 3.9 from last night, will recheck at this time. Has received 2.5L NS via bolus- which is 30 per KG. Currently at 100ml/hour- will recheck LA level and reassess (6) DVT prophylaxis Current Visit: No Status: Acute Assessment and plan: Subcutaneous heparin, will change to Lovenox, normal renal functioning and thrombocytopenia. (7) Schizophrenia Current Visit: No Status: Chronic Assessment and plan: Patient endorsing severe pain, mood and affect currently stable. Qualifiers: Schizophrenia type: unspecified Qualified Code(s): F20.9 - Schizophrenia, unspecified (8) Bipolar disorder Current Visit: No Status: Chronic Qualifiers: Active/Remission status: remission status unspecified Qualified Code(s): F31.9 - Bipolar disorder, unspecified (9) Atelectasis of both lungs Current Visit: No Status: Acute Assessment and plan: Incentive spirometry. Frequent position changes. (10) Diabetes mellitus Current Visit: No Status: Chronic Assessment and plan: Controlled with an A1c last month of 6.6%. Continue sliding scale while admitted. Qualifiers: Diabetes mellitus type: type 2 Diabetes mellitus complication status: with unspecified complications Diabetes mellitus fpc insulin use: without watermaster use Qualified Code(s): E11.8 - Type 2 diabetes mellitus with unspecified complications (11) Thrombocytopenia Current Visit: No Status: Chronic Assessment and plan: New since last month, stable, no signs of active bleeding, will trend (12) Neurogenic bladder Current Visit: No Status: Chronic (13) Paraplegia Current Visit: No Status: Chronic (14) Hypertension Current Visit: No Status: Chronic Assessment and plan: Hypertensive at this time however the patient is endorsing severe pain. We will address his pain and trend his blood pressure. Will adjust medications as indicated. 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 On examination, patient resting supine in bed with his eyes closed. He opens his eyes to voice and states that he is in severe pain. He is requesting for an increase in his pain medication. He denies any further concerns at this time. - Constitutional Vitals: Temp Pulse Resp BP Pulse Ox 97.9 F 89 17 159/98 90 11/06/16 07:15 11/06/16 07:15 11/06/16 07:15 11/06/16 07:15 11/06/16 07:15 General appearance: Present: disheveled, mild distress (2/2 pain), A&O X 3, answers questions appropriately - Head Head exam: Present: atraumatic, normocephalic - Eye Eye exam: Present: PERRL, conjuntiva pink, sclera anicteric Pupils: Present: PERRL - Neck Neck exam general surgery: Present: supple, trachea midline. Absent: lymphadenopathy - Respiratory Respiratory exam: Present: decreased breath sounds. Absent: accessory muscle use, rales, respiratory distress, rhonchi, wheezes - Cardiovascular Cardiovascular exam: Present: RRR, +S1, +S2. Absent: diastolic murmur, gallop, rubs, systolic murmur - GI/Abdominal GI/Abdominal exam: Present: normal bowel sounds, soft, tenderness, no peritoneal signs. Absent: distended Additional comments: G tube in place as well as suprapubic catheter - Extremities Exam Extremities exam: Present: pedal edema, warm, radial pulses palpable and symetrical. Absent: calf tenderness, cyanotic - Neurological Exam Neurological exam: Present: alert, CN II-XII intact, oriented X3, speech deficit. Absent: pronater drift, facial droop - Skin Skin exam: Present: dry, intact, pallor, warm Internal Medicine: Result - Labs CBC & Chem 7: 11/06/16 07:15 11/06/16 07:15 Labs: Short CBC 11/06/16 Range/Units 07:15 WBC 6.0 (4.3-11.1) K/mcL Hgb 17.6 H (12.9-16.9) g/dL Hct 53.0 H (37.5-50.1) % Plt Count 124 L (140-400) K/mcL Neutrophils # 4.5 (1.6-8.9) K/mcL BMP 11/06/16 07:15 Sodium 135 L Potassium 4.4 D Chloride 97 L Carbon Dioxide 29 BUN 14 Creatinine 0.64 L Glucose 281 H Calcium 9.6 Consult Discharge Plan - Plan Referrals: Kobe Bailon DO [Primary Care Provider] -
[2016-11-06] MEDS ORDERED: *HR* Promethazine 25 MG/ML VIAL IVP PRN (12:10)
[2016-11-06] MEDS ORDERED: Ondansetron 4 MG/2 ML VIAL IVP PRN (12:11)
[2016-11-06] MEDS: Pregabalin 75 MG CAPSULE PO SCH ×2 (12:46→20:18)
[2016-11-06] MEDS: *HR* Morphine 2 MG/ML SYRINGE IVP PRN ×2 (12:47→20:17)
[2016-11-06] MEDS: Pantoprazole 40 MG VIAL IVP SCH (18:49)
[2016-11-06] MEDS ORDERED: NON-FORMULARY MEDICATION 1 EACH EACH (Quetiapine Fumarate [Seroquel] 400 MG) GTUBE SCH (21:00)
[2016-11-07 02:54] LABS: Eosinophils # 0.3 K/mcL (0.0-0.6); Eosinophils % 6.2 %; Hemoglobin 15.7 g/dL (12.9-16.9); Lymphocytes # 1.7 K/mcL (0.6-4.6); Lymphocytes % 41.1 %; Mean Corpuscular Hemoglobin 31.7 pg (28.0-33.3); Mean Corpuscular Volume 98.8 fL (83.0-100.0); Mean Platelet Volume 11.5 fL (9.4-12.4); Monocytes # 0.5 K/mcL (0.0-1.3); Monocytes % 11.1 %; Neutrophils # 1.6 K/mcL (1.6-8.9); Platelet Count 128 K/mcL (140-400); Red Blood Count 4.96 M/mcL (4.19-5.50); Red Cell Distribution Width 14.1 % (11.5-14.5); Segmented Neutrophils % 39.6 %
[2016-11-07 03:07] LABS: BUN/Creatinine Ratio 16 (6-26); Blood Urea Nitrogen 9 mg/dL (8-26); Calcium 9.4 mg/dL (8.6-10.8); Carbon Dioxide 32 mEq/L (19-29); Chloride 101 mEq/L (98-109); Glucose 137 mg/dL (70-99); Osmolality,Calculated 291 (280-300); Potassium 4.1 mEq/L (3.5-4.5); Sodium 140 mEq/L (136-145); eGFR For African Americans > 60 (> 60); eGFR For Non-African Americans > 60 (> 60)
[2016-11-07] MEDS: Cefepime HCl 2,000 MG in D5% in Water (Mini-Bag+) 100 ML IVPB SCH ×2 (05:06→17:29)
[2016-11-07] MEDS: 0.9 % Sodium Chloride 1,000 ML IVC SCH ×3 (05:06→23:18)
[2016-11-07] MEDS: Pantoprazole 40 MG VIAL IVP SCH ×2 (05:07→17:28)
[2016-11-07] MEDS: *HR* Enoxaparin 40 MG/0.4 ML SYRINGE SQ SCH (05:07)
[2016-11-07] MEDS: Famotidine 20 MG/2 ML VIAL IVP SCH ×2 (05:07→17:28)
[2016-11-07] MEDS: *HR* Morphine 2 MG/ML SYRINGE IVP PRN ×5 (05:07→23:17)
[2016-11-07] MEDS: Docusate Oral Soln 100 MG/10 ML UDC PO SCH ×2 (08:40→21:17)
[2016-11-07] MEDS: Loratadine 10 MG TABLET GTUBE SCH (08:40)
[2016-11-07] MEDS: Pregabalin 75 MG CAPSULE PO SCH ×2 (08:40→21:17)
[2016-11-07] MEDS: risperiDONE 0.25 MG TABLET PO SCH ×2 (08:40→21:17)
[2016-11-07] MEDS: Valproic Acid Oral Soln 250 MG/5 ML UDC PO SCH ×3 (08:40→21:17)
[2016-11-07] MEDS: *HR* OxyCODONE Immed Rel 15 MG TABLET PO PRN (08:41)
[2016-11-07] MEDS: Insulin LISPRO 300 UNITS/3 ML VIAL SQ SCH ×4 (08:42→21:18)
--- NOTE | 2016-11-07 12:49 | Internal Med Progress Note ---
Date of Encounter: 11/07/16 Time of Encounter: 09:30 - Assessment and plan (1) UTI (urinary tract infection) due to urinary indwelling catheter Current Visit: No Status: Acute Assessment and plan: Patient with history of multiple urinary tract infections with multiple resistance and secondary to his indwelling catheter. Lactic acidosis resolved. No indication for addition of Gram-positive coverage. Last time he was admitted- discharged on 10/14/16- ID was brought onboard and he was sent home on IV Zosyn for 2 weeks. Treating based upon most recent urine culture with Cefepime. Urine culture still pending-spoke to lab today states the urine was only sent for reflex microscopic instead of for a culture, culture has been added on to the existing specimen in the lab and is pending. (2) Acute metabolic encephalopathy Current Visit: No Status: Resolved Assessment and plan: Resolved. Patient is alert and oriented 3 during my interaction with him. He is fully interactive and is much more comfortable than yesterday. He states his pain is controlled and is endorsing a normal appetite. Urinary tract infection noted, started on cefepime in keeping with most recent urine culture report. Lactic acidosis resolved. He did receive 30/kg bolus. Tachycardia trended down, but he remains hypertensive. Overall, his vital signs appear to be improving, repeat lactic acid is pending. He is currently on 5 L per nasal cannula continuously, unknown if the patient is on oxygen at home-we will investigate. We will continue to monitor closely. (3) Chronic pain Current Visit: Yes Status: Chronic Assessment and plan: OARRS report checks out with prescriptions for morphine liquid solution, oxycodone, Lyrica, and clonazepam. Regarding pain control, he receives 80 mg of liquid morphine per day which is equivalent to approximately 14 mg IV- ordered. Oxycodone 15 mg every 6 hours continued, he appears much more comfortable than yesterday and states his pain is controlled today. Qualifiers: Chronic pain type: other chronic pain Qualified Code(s): G89.29 - Other chronic pain (4) SIRS (systemic inflammatory response syndrome) Current Visit: Yes Status: Resolved Assessment and plan: See prior note for acute metabolic encephalopathy (5) Lactic acidosis Current Visit: Yes Status: Resolved (6) DVT prophylaxis Current Visit: No Status: Acute Assessment and plan: Subcutaneous heparin, changed to Lovenox yesterday 2/2 normal renal functioning and thrombocytopenia. (7) Schizophrenia Current Visit: No Status: Chronic Assessment and plan: mood and affect currently stable. Qualifiers: Schizophrenia type: unspecified Qualified Code(s): F20.9 - Schizophrenia, unspecified (8) Bipolar disorder Current Visit: No Status: Chronic Qualifiers: Active/Remission status: remission status unspecified Qualified Code(s): F31.9 - Bipolar disorder, unspecified (9) Atelectasis of both lungs Current Visit: No Status: Acute Assessment and plan: Incentive spirometry. Frequent position changes. (10) Diabetes mellitus Current Visit: No Status: Chronic Assessment and plan: Controlled with an A1c last month of 6.6%. Continue sliding scale while admitted. 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 At home, patient is on lisinopril 10 mg daily, carvedilol 6.25 mg daily. Lisinopril was initially held secondary to SIRS that has since resolved, renal functioning normal, will add back and at this time and monitor his blood pressure. 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 On examination, patient resting supine in bed watching television. Patient is much more alert and interactive when compared to yesterday. He states his pain is controlled and states he is much more comfortable than yesterday. He is requesting food stating that he is hungry. - Constitutional Vitals: Temp Pulse Resp BP Pulse Ox 98.2 F 85 15 160/103 94 11/07/16 10:38 11/07/16 10:38 11/07/16 10:38 11/07/16 10:38 11/07/16 10:38 General appearance: Present: disheveled, A&O X 3, pleasant, no acute distress, answers questions appropriately - Head Head exam: Present: atraumatic, normocephalic - Eye Eye exam: Present: PERRL, conjuntiva pink, sclera anicteric Pupils: Present: PERRL - Neck Neck exam general surgery: Present: supple, trachea midline. Absent: lymphadenopathy - Respiratory Respiratory exam: Present: decreased breath sounds. Absent: accessory muscle use, rales, respiratory distress, rhonchi, wheezes - Cardiovascular Cardiovascular exam: Present: RRR, +S1, +S2. Absent: diastolic murmur, gallop, rubs, systolic murmur - GI/Abdominal GI/Abdominal exam: Present: normal bowel sounds, soft, no peritoneal signs. Absent: distended, tenderness - Extremities Exam Extremities exam: Present: pedal edema, warm, radial pulses palpable and symetrical. Absent: calf tenderness, cyanotic - Neurological Exam Neurological exam: Present: alert, CN II-XII intact, oriented X3, no focal deficits. Absent: normal gait, pronater drift, facial droop, speech deficit - Skin Skin exam: Present: dry, intact, normal color, warm Internal Medicine: Result - Labs CBC & Chem 7: 11/07/16 02:30 11/07/16 02:30 Labs: Short CBC 11/07/16 Range/Units 02:30 WBC 4.1 L (4.3-11.1) K/mcL Hgb 15.7 D (12.9-16.9) g/dL Hct 49.0 (37.5-50.1) % Plt Count 128 L (140-400) K/mcL Neutrophils # 1.6 (1.6-8.9) K/mcL BMP 11/07/16 02:30 Sodium 140 Potassium 4.1 Chloride 101 Carbon Dioxide 32 H BUN 9 Creatinine 0.58 L Glucose 137 H Calcium 9.4 Consult Discharge Plan - Plan Referrals: Kobe Bailon DO [Primary Care Provider] -
[2016-11-07] MEDS: Acetaminophen/Butalbital/CaffeineTABLET PO PRN (15:49)
[2016-11-08] MEDS: Acetaminophen/Butalbital/CaffeineTABLET PO PRN ×4 (00:41→20:08)
[2016-11-08] MEDS: *HR* Morphine 2 MG/ML SYRINGE IVP PRN ×5 (03:21→22:20)
[2016-11-08] MEDS: Cefepime HCl 2,000 MG in D5% in Water (Mini-Bag+) 100 ML IVPB SCH ×2 (06:07→17:17)
[2016-11-08] MEDS: Pantoprazole 40 MG VIAL IVP SCH ×2 (06:08→17:18)
[2016-11-08] MEDS: *HR* Enoxaparin 40 MG/0.4 ML SYRINGE SQ SCH (06:08)
[2016-11-08] MEDS: Famotidine 20 MG/2 ML VIAL IVP SCH ×2 (06:08→17:18)
[2016-11-08 06:31] LABS: BUN/Creatinine Ratio 16 (6-26); Blood Urea Nitrogen 11 mg/dL (8-26); Calcium 9.3 mg/dL (8.6-10.8); Carbon Dioxide 31 mEq/L (19-29); Chloride 101 mEq/L (98-109); Glucose 197 mg/dL (70-99); Osmolality,Calculated 295 (280-300); Potassium 4.4 mEq/L (3.5-4.5); Sodium 140 mEq/L (136-145); eGFR For African Americans > 60 (> 60); eGFR For Non-African Americans > 60 (> 60)
[2016-11-08] MEDS: Loratadine 10 MG TABLET GTUBE SCH (08:13)
[2016-11-08] MEDS: Pregabalin 75 MG CAPSULE PO SCH ×2 (08:13→20:09)
[2016-11-08] MEDS: Valproic Acid Oral Soln 250 MG/5 ML UDC PO SCH ×3 (08:14→20:09)
[2016-11-08] MEDS: risperiDONE 0.25 MG TABLET PO SCH ×2 (08:14→20:09)
[2016-11-08] MEDS: Docusate Oral Soln 100 MG/10 ML UDC PO SCH ×2 (08:14→20:09)
[2016-11-08] MEDS: Insulin LISPRO 300 UNITS/3 ML VIAL SQ SCH ×4 (08:27→20:38)
[2016-11-08] MEDS: 0.9 % Sodium Chloride 1,000 ML IVC SCH ×2 (12:27→23:15)
--- NOTE | 2016-11-08 12:48 | Discharge Summary ---
Date of Encounter: 11/08/16 Time of Encounter: 09:30 (and 1130, [id number]) - Discharge Diagnosis (1) UTI (urinary tract infection) due to urinary indwelling catheter Priority: Primary Status: Acute Comments: Patient with history of multiple urinary tract infections with multiple resistance and secondary to his indwelling catheter. Lactic acidosis resolved. No indication for addition of Gram-positive coverage. Last time he was admitted- discharged on 10/14/16- ID was brought onboard and he was sent home on IV Zosyn for 2 weeks. Treating based upon most recent urine culture with Cefepime. Urine sensitivities are still pending and will not be back until tomorrow. Patient was advised of this but stated that he generally today and that he would sign out AMA. Qualifiers: Indwelling urinary catheter type: cystostomy catheter Encounter type: subsequent encounter Qualified Code(s): T83.510D - Infection and inflammatory reaction due to cystostomy catheter, subsequent encounter; N39.0 - Urinary tract infection, site not specified (2) Acute metabolic encephalopathy Priority: Primary Status: Resolved (3) Chronic pain Priority: Secondary Status: Chronic Qualifiers: Chronic pain type: other chronic pain Qualified Code(s): G89.29 - Other chronic pain (4) SIRS (systemic inflammatory response syndrome) Priority: Primary Status: Resolved (5) Lactic acidosis Priority: Primary Status: Resolved (6) DVT prophylaxis Priority: Primary Status: Acute Comments: Subcutaneous heparin initially that was changed to Lovenox 2/2 normal renal functioning and thrombocytopenia. (7) Schizophrenia Priority: Secondary Status: Chronic Comments: ,mood and affect was stable until day of discharge. Patient is aware of the risks of choosing to leave prior to urine sensitivities, but continues to request his AMA papers Qualifiers: Schizophrenia type: unspecified Qualified Code(s): F20.9 - Schizophrenia, unspecified (8) Bipolar disorder Priority: Secondary Status: Chronic Qualifiers: Active/Remission status: remission status unspecified Qualified Code(s): F31.9 - Bipolar disorder, unspecified (9) Atelectasis of both lungs Priority: Primary Status: Acute Comments: treated with incentive spirometry while admitted. (10) Diabetes mellitus Priority: Secondary Status: Chronic Comments: Controlled with an A1c last month of 6.6%. 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 Patient noted to be extremely upset on day of discharge stating he was going home. Elevated readings consistent with his anger and foul mood on the day of discharge. Recommend following up outpatient and daily BP checks at home where he would likely be more calm. 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, stage 4 Priority: Secondary Status: Chronic - Discharge Medications Prescriptions: Cefepime HCl/D5w [Cefepime-Dextrose 2 gm/50 ml] 2 gm IV BID #20 piggyback Home Medications: Ascorbic Acid [Vitamin C] 500 mg PO DAILY 03/20/15 [History] Carvedilol 6.25 mg GTUBE DAILY 03/20/15 [History] Loratadine [Claritin] 10 mg GTUBE DAILY 03/20/15 [History] Metformin HCl [Glucophage] 1,000 mg PO BID 03/20/15 [History] Ondansetron HCl [Zofran] 4 mg PO Q6HR PRN #30 tablet 10/04/15 [Rx] Quetiapine Fumarate [Seroquel] 400 mg GTUBE HS 30 Days 10/29/15 [Rx] risperiDONE [RisperDAL] 0.5 mg PO BID #30 tablet 10/29/15 [Rx] Albuterol Sulfate [Ventolin Hfa] 2 puff IH Q4H PRN 11/02/15 [History] Cyanocobalamin (Vitamin B-12) [Vitamin B-12] 500 mcg PO DAILY 05/10/16 [History] Docusate Sodium [Docu Liquid] 100 mg PO BID 05/10/16 [History] Oxycodone HCl 15 mg PO Q6H PRN 05/10/16 [History] Ranitidine HCl [Acid Flower [place]] 150 mg PO DAILY 05/10/16 [History] Sennosides [Senna] 17.6 mg PO HS 05/10/16 [History] Valproic Acid Oral Soln [Depakene Oral Soln] 250 mg PO TID 05/10/16 [History] Butalb/Acetaminophen/Caffeine [Esgic 50-325-40 mg Tablet] 1 tab PO TID PRN 07/16 [History] Morphine Sulfate [Morphine Oral Solution] 20 mg PO Q4H PRN 07/16/16 [History] Pregabalin [Lyrica] 150 mg PO BID 07/16/16 [History] Promethazine [Phenergan] 25 mg PO TID PRN 07/16/16 [History] Oxybutynin [Ditropan] 5 mg GTUBE TID 07/30/16 [History] Buspirone HCl [Buspar] 10 mg PO BID 10/10/16 [History] Lisinopril [Zestril] 10 mg PO DAILY 10/10/16 [History] Na Phos,M-B/Na Phos,Di-Ba [Fleet Enema Extra] 230 ml RC DAILY PRN 10/10/16 [ History] Nut.tx.gluc.intoler,Lac-Fr,Soy [Glucerna 1.5 [place]] 1 can PO AD 10/10/16 [History] Polyethylene Glycol 3350 [Smoothlax] 17 gm PO DAILY PRN 10/10/16 [History] Cefepime HCl/D5w [Cefepime-Dextrose 2 gm/50 ml] 2 gm IV BID #20 piggyback [Rx] Allergies/Adverse Reactions: Allergies azithromycin [From Zithromax] Allergy (Verified 10/10/16 00:08) Anaphylaxis linezolid [From Zyvox] Allergy (Verified 10/10/16 00:08) Anaphylaxis Date of admission: 11/05/16 23:06 Primary care physician: Kobe Bailon DO Consults: 11/08/16 12:43 Consult to Invasive Line Access Team [CONS] Routine Reason for Consult: likely will need long temr atb's. 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 Back again with another UTI- can you please evaluate and change the catheter if indicated? Thanks Time Notified: 12:44 Call Completed: Yes Discharging clinician: Abbi Barrett Anticipated date of discharge: 11/08/16 (leaving AMA) - Patient Status Disposition: Left Against Medical Advice Condition: Fair Functional capacity at discharge: bed bound Overall status at discharge: patient is progressing back to baseline - Discharge Instructions Follow Up With: Kobe Bailon DO [Primary Care Provider] - Additional Instructions: Follow-up with primary care provider within one to 2 weeks, primary care provider should be able to call regarding sensitivities report within the next day or so - Diet and Activity Activity: increase activity as tolerated Diet: diabetic diet, low fat, low cholesterol, low salt diet Hospital course: Mr. Jaramillo is a 51 year old male with past medical history of paraplegia with neurogenic bladder status post suprapubic catheter, recurrent urinary tract infections, diabetes, GERD, hyperlipidemia, hypertension, bipolar disorder, schizophrenia, tobacco abuse. Patient had just been discharged from the hospital on 10/15/69 with 2 weeks of IV Zosyn for a urinary tract infection. He presented to the emergency department chief complaint of lethargy and confusion. Patient stated that he completed the antibiotics as ordered. Workup in the emergency department revealing urinary tract infection, lactic acidosis. Patient was admitted to the hospitalist service for further evaluation and management. Chest x-ray demonstrated low lung volumes that were treated with incentive spirometry frequent position changes while admitted. In review of his past urine culture reports, patient has had Pseudomonas, Klebsiella, ESBL. His most recent culture from 10/09/16 was reviewed and the patient was started on cefepime. Patient received 30/kg bolus and his lactic acidosis resolved. He remained alert and oriented 3 over the course of his 3 night admission. Regarding his mental health issues, his mood and affect were stable until the day of discharge when the patient demanded to leave. He was informed at length of the risks of choosing to leave before his culture before had been resulted. His sensitivities were still pending given that prior cultures had multiple resistances, patient was advised to stay overnight until sensitivities were available however he refused. He was counseled at length on risk of sepsis and/or but stated he still wanted to leave. An extended peripheral was placed and he was sent home with 10 days of cefepime, recommend follow-up with primary care provider within the next 1-2 days to ensure sensitivity report (emailed his PCP at the residency clinic). He was also offered occupational and physical therapy evaluations which he declined. He stated that he has home health who will choose to stay with what he has at this point. He is aware of the risk of going home with potentially inappropriate antibiotics but he continues to demand his discharge papers. Urology was brought onboard and his suprapubic catheter was changed. He was discharge AGAINST MEDICAL ADVICE in stable condition with close outpatient follow-up highly recommended. ITS Impressions Chest X-Ray 11/05/16 18:08 IMPRESSION: 1. Low lung volumes with bibasilar atelectasis. D/ / Wilmer Shore MD / Wilmer Shore MD Interpreting Provider: Wilmer Shore MD - Time Spent with Patient Total time spent providing and/or coordinating discharge services: - Constitutional Vitals: Temp Pulse Resp BP Pulse Ox 97.8 F 69 20 181/109 90 11/08/16 07:24 11/08/16 07:24 11/08/16 07:24 11/08/16 07:24 11/08/16 08:34 General appearance: Present: disheveled, A&O X 3, no acute distress, answers questions appropriately. Absent: cooperative, pleasant - Head Head exam: Present: atraumatic, normocephalic - Eye Eye exam: Present: PERRL, conjuntiva pink, sclera anicteric Pupils: Present: PERRL - Neck Neck exam general surgery: Present: supple, trachea midline. Absent: lymphadenopathy - Respiratory Respiratory exam: Present: decreased breath sounds. Absent: accessory muscle use, rales, respiratory distress, rhonchi, wheezes - Cardiovascular Cardiovascular exam: Present: RRR, +S1, +S2. Absent: diastolic murmur, gallop, rubs, systolic murmur - GI/Abdominal GI/Abdominal exam: Present: normal bowel sounds, soft, no peritoneal signs. Absent: distended, tenderness - Extremities Exam Extremities exam: Present: pedal edema, warm, radial pulses palpable and symetrical. Absent: calf tenderness, cyanotic - Neurological Exam Neurological exam: Present: alert, CN II-XII intact, oriented X3, no focal deficits. Absent: pronater drift, facial droop, speech deficit - Psychiatric Psychiatric exam: Present: agitated. Absent: suicidal ideation - Skin Skin exam: Present: dry, intact, pallor, warm
--- NOTE | 2016-11-08 13:31 | Event Note ---
Date of Encounter: 11/08/16 Time of Encounter: 13:30 I was asked to change out Mr. Jaramillo's suprapubic tube. I removed his 22 American catheter and changed it with a new 22 American tube. He tolerated the procedure well.
[2016-11-08] MEDS: *HR* OxyCODONE Immed Rel 15 MG TABLET PO PRN (14:19)
--- NOTE | 2016-11-08 15:06 | Electrocardiograph Report ---
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
--- NOTE | 2016-11-08 16:14 | Internal Med Progress Note ---
Date of Encounter: 11/08/16 Time of Encounter: 09:30 (1230 and 1500) - Assessment and plan (1) UTI (urinary tract infection) due to urinary indwelling catheter Current Visit: No Status: Acute Assessment and plan: Patient with history of multiple urinary tract infections with multiple resistance and secondary to his indwelling catheter. Lactic acidosis resolved. No indication for addition of Gram-positive coverage. Last time he was admitted- discharged on 10/14/16- ID was brought onboard and he was sent home on IV Zosyn for 2 weeks. Treating based upon most recent urine culture with Cefepime. Urine sensitivities pending, should be available tomorrow. We will likely need to send home on IV antibiotics, extended peripheral line placed today. Urology was brought on board and his suprapubic catheter was changed today. (2) Acute metabolic encephalopathy Current Visit: No Status: Resolved Assessment and plan: Resolved. Patient is alert and oriented 3 during my interaction with him. He is fully interactive and is much more comfortable than yesterday. He states his pain is controlled and is endorsing a normal appetite. Urinary tract infection noted, started on cefepime in keeping with most recent urine culture report. Lactic acidosis resolved. He did receive 30/kg bolus. Tachycardia trended down, but he remains hypertensive. He was on 5 L per nasal cannula however he is now refusing to wear his oxygen, and he is tolerating room air well. Unknown if the patient is on oxygen at home-we will investigate. Initial plan was to wait until tomorrow when the sensitivities were back to send the patient home with home health. Patient became very upset and wanted to leave AMA. As we were preparing for him to leave AMA, social science teacher found out that his caregiver can no longer take care of him given that she is in hospice and has been given 2 days to live. Patient is unaware of this-family and caregivers have requested that we not inform the patient. New plan is to likely transfer to inpatient to a long-term psychiatric unit: [facility]. (3) Chronic pain Current Visit: Yes Status: Chronic Assessment and plan: OARRS report checks out with prescriptions for morphine liquid solution, oxycodone, Lyrica, and clonazepam. Regarding pain control, he receives 80 mg of liquid morphine per day which is equivalent to approximately 14 mg IV- ordered. Will now transition back to PO pain control given that he is nearly ready for discharge and only needs results of Urine sensitivity. Oxycodone 15 mg every 6 hours continued, his pain is controlled today. (4) SIRS (systemic inflammatory response syndrome) Current Visit: Yes Status: Resolved Assessment and plan: See prior note for acute metabolic encephalopathy (5) Lactic acidosis Current Visit: Yes Status: Resolved (6) DVT prophylaxis Current Visit: No Status: Acute Assessment and plan: Subcutaneous heparin, changed to Lovenox 2/2 normal renal functioning and thrombocytopenia. (7) Schizophrenia Current Visit: No Status: Chronic Assessment and plan: mood and affect was stable until earlier this afternoon when the patient became belligerent with staff and kept yelling incessantly and hitting his call light continuously. He stated that he was leaving and demanded his "papers." He was advised of risks of choosing to leave AMA without urine sensitivity results including sepsis and , but he still stated that he was going home "one way or the other." Going home is not an option according to social science teacher- awaiting placement. Qualifiers: Schizophrenia type: unspecified Qualified Code(s): F20.9 - Schizophrenia, unspecified (8) Bipolar disorder Current Visit: No Status: Chronic Qualifiers: Active/Remission status: remission status unspecified Qualified Code(s): F31.9 - Bipolar disorder, unspecified (9) Atelectasis of both lungs Current Visit: No Status: Acute Assessment and plan: Incentive spirometry. Frequent position changes. (10) Diabetes mellitus Current Visit: No Status: Chronic Assessment and plan: Controlled with an A1c last month of 6.6%. Continue sliding scale while admitted. Qualifiers: Diabetes mellitus type: type 2 Diabetes mellitus complication status: with unspecified complications Diabetes mellitus fpc insulin use: without fpc use Qualified Code(s): E11.8 - Type 2 diabetes mellitus with unspecified complications (11) Thrombocytopenia Current Visit: No Status: Chronic Assessment and plan: New since last month, stable, no signs of active bleeding, will trend (12) Neurogenic bladder Current Visit: No Status: Chronic (13) Paraplegia Current Visit: No Status: Chronic (14) Hypertension Current Visit: No Status: Chronic Assessment and plan: Remains hypertensive despite having his pain controlled but the patient was quite upset today. At home, patient is on lisinopril 10 mg daily, carvedilol 6.25 mg daily. Lisinopril was initially held secondary to SIRS that has since resolved, renal functioning normal, will add back and at this time and monitor his blood pressure. Will continue to trend and adjust medications as indicated. BP likely high at this time 2/2 emotional distress. 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 He stated that he was eating well and overall, he was doing well. I was then asked to go back into his room in the early afternoon hours and at that time he was very upset, screaming, and stating that he was going to leave AMA "one way or the other." - Constitutional Vitals: Temp Pulse Resp BP Pulse Ox 97.8 F 69 20 181/109 90 11/08/16 07:24 11/08/16 07:24 11/08/16 07:24 11/08/16 07:24 11/08/16 08:34 General appearance: Present: disheveled, A&O X 3, no acute distress, answers questions appropriately. Absent: cooperative, pleasant - Head Head exam: Present: atraumatic, normocephalic - Eye Eye exam: Present: PERRL, conjuntiva pink, sclera anicteric Pupils: Present: PERRL - Neck Neck exam general surgery: Present: supple, trachea midline. Absent: lymphadenopathy - Respiratory Respiratory exam: Present: decreased breath sounds. Absent: accessory muscle use, rales, respiratory distress, rhonchi, wheezes - Cardiovascular Cardiovascular exam: Present: RRR, +S1, +S2. Absent: diastolic murmur, gallop, rubs, systolic murmur - GI/Abdominal GI/Abdominal exam: Present: normal bowel sounds, soft, no peritoneal signs. Absent: distended, tenderness - Extremities Exam Extremities exam: Present: pedal edema, warm, radial pulses palpable and symetrical. Absent: calf tenderness, cyanotic - Neurological Exam Neurological exam: Present: alert, CN II-XII intact, oriented X3, no focal deficits. Absent: pronater drift, facial droop, speech deficit - Expanded Neurological Exam Patient oriented to: Present: person, place, time Speech: Present: fluid speech Coma Scale Eye Opening: Spontaneous Coma Scale Motor Response: Obeys Commands Coma Scale Verbal Response: Oriented Coma Scale Total: 15 - Psychiatric Psychiatric exam: Present: agitated. Absent: suicidal ideation - Expanded Psychiatric Exam Focused psych exam: Present: restlessness - Skin Skin exam: Present: dry, intact, pallor, warm Internal Medicine: Result - Labs CBC & Chem 7: 11/07/16 02:30 11/08/16 05:22 Labs: BMP 11/08/16 05:22 Sodium 140 Potassium 4.4 Chloride 101 Carbon Dioxide 31 H BUN 11 Creatinine 0.68 L Glucose 197 H Calcium 9.3 Consult Discharge Plan - Plan Additional Instructions: Follow-up with primary care provider within one to 2 weeks, primary care provider should be able to call regarding sensitivities report within the next day or so Referrals: Kobe Bailon, [Primary Care Provider] - Prescriptions: Cefepime HCl/D5w [Cefepime-Dextrose 2 gm/50 ml] 2 gm IV BID #20 piggyback
[2016-11-09] MEDS: *HR* OxyCODONE Immed Rel 15 MG TABLET PO PRN ×3 (00:14→15:53)
[2016-11-09] MEDS: Cefepime HCl 2,000 MG in D5% in Water (Mini-Bag+) 100 ML IVPB SCH ×2 (06:04→18:34)
[2016-11-09] MEDS: *HR* Enoxaparin 40 MG/0.4 ML SYRINGE SQ SCH (06:05)
[2016-11-09] MEDS: Famotidine 20 MG/2 ML VIAL IVP SCH ×2 (06:05→18:34)
[2016-11-09] MEDS: Pantoprazole 40 MG VIAL IVP SCH ×2 (06:05→18:34)
[2016-11-09] MEDS: *HR* Morphine 2 MG/ML SYRINGE IVP PRN ×3 (06:17→19:30)
[2016-11-09] MEDS: Valproic Acid Oral Soln 250 MG/5 ML UDC PO SCH ×3 (08:45→20:29)
[2016-11-09] MEDS: Docusate Oral Soln 100 MG/10 ML UDC PO SCH ×2 (08:45→20:29)
[2016-11-09] MEDS: risperiDONE 0.25 MG TABLET PO SCH ×2 (08:46→20:30)
[2016-11-09] MEDS: Pregabalin 75 MG CAPSULE PO SCH ×2 (08:46→20:30)
[2016-11-09] MEDS: Loratadine 10 MG TABLET GTUBE SCH (08:46)
[2016-11-09] MEDS: 0.9 % Sodium Chloride 1,000 ML IVC SCH ×3 (08:46→18:35)
[2016-11-09] MEDS: Insulin LISPRO 300 UNITS/3 ML VIAL SQ SCH ×4 (08:47→20:31)
[2016-11-09] MEDS: Acetaminophen/Butalbital/CaffeineTABLET PO PRN ×3 (09:51→20:53)
--- NOTE | 2016-11-09 15:52 | Discharge Summary ---
Date of Encounter: 11/09/16 Time of Encounter: 15:48 - Discharge Diagnosis (1) Bipolar disorder Priority: Secondary Status: Chronic Qualifiers: Active/Remission status: remission status unspecified Qualified Code(s): F31.9 - Bipolar disorder, unspecified (2) Chronic pain Priority: Secondary Status: Chronic Qualifiers: Chronic pain type: other chronic pain Qualified Code(s): G89.29 - Other chronic pain (3) DVT prophylaxis Priority: Secondary Status: Acute (4) Hypertension Priority: Secondary Status: Chronic Qualifiers: Hypertension type: essential hypertension Qualified Code(s): I10 - Essential (primary) hypertension (5) Paraplegia Priority: Secondary Status: Chronic (6) Right ischial pressure sore, stage 4 Priority: Secondary Status: Chronic (7) Schizophrenia Priority: Secondary Status: Chronic Qualifiers: Schizophrenia type: unspecified Qualified Code(s): F20.9 - Schizophrenia, unspecified (8) UTI (urinary tract infection) Priority: Primary Status: Acute Qualifiers: Urinary tract infection type: catheter-associated UTI Indwelling urinary catheter type: cystostomy catheter Encounter type: initial encounter Qualified Code(s): T83.510A - Infection and inflammatory reaction due to cystostomy catheter, initial encounter; N39.0 - Urinary tract infection, site not specified - Discharge Medications Prescriptions: Oxycodone HCl 15 mg PO Q6H PRN #30 tablet PRN Reason: Pain Pregabalin [Lyrica] 150 mg PO BID #30 capsule Home Medications: Ascorbic Acid [Vitamin C] 500 mg PO DAILY 03/20/15 [History] Carvedilol 6.25 mg GTUBE DAILY 03/20/15 [History] Loratadine [Claritin] 10 mg GTUBE DAILY 03/20/15 [History] Metformin HCl [Glucophage] 1,000 mg PO BID 03/20/15 [History] Ondansetron HCl [Zofran] 4 mg PO Q6HR PRN #30 tablet 10/04/15 [Rx] Quetiapine Fumarate [Seroquel] 400 mg GTUBE HS 30 Days 10/29/15 [Rx] risperiDONE [RisperDAL] 0.5 mg PO BID #30 tablet 10/29/15 [Rx] Albuterol Sulfate [Ventolin Hfa] 2 puff IH Q4H PRN 11/02/15 [History] Cyanocobalamin (Vitamin B-12) [Vitamin B-12] 500 mcg PO DAILY 05/10/16 [History] Docusate Sodium [Docu Liquid] 100 mg PO BID 05/10/16 [History] Ranitidine HCl [Acid Cutting And Splicing Supervisor] 150 mg PO DAILY 05/10/16 [History] Sennosides [Senna] 17.6 mg PO HS 05/10/16 [History] Valproic Acid Oral Soln [Depakene Oral Soln] 250 mg PO TID 05/10/16 [History] Butalb/Acetaminophen/Caffeine [Esgic 50-325-40 mg Tablet] 1 tab PO TID PRN 07/16 [History] Morphine Sulfate [Morphine Oral Solution] 20 mg PO Q4H PRN 07/16/16 [History] Promethazine [Phenergan] 25 mg PO TID PRN 07/16/16 [History] Oxybutynin [Ditropan] 5 mg GTUBE TID 07/30/16 [History] Buspirone HCl [Buspar] 10 mg PO BID 10/10/16 [History] Lisinopril [Zestril] 10 mg PO DAILY 10/10/16 [History] Na Phos,M-B/Na Phos,Di-Ba [Fleet Enema Extra] 230 ml RC DAILY PRN 10/10/16 [ History] Nut.tx.gluc.intoler,Lac-Fr,Soy [Glucerna 1.5 Tim[place]o] 1 can PO AD 10/10/16 [History] Polyethylene Glycol 3350 [Smoothlax] 17 gm PO DAILY PRN 10/10/16 [History] Oxycodone HCl 15 mg PO Q6H PRN #30 tablet 11/09/16 [Rx] Pregabalin [Lyrica] 150 mg PO BID #30 capsule 11/09/16 [Rx] Allergies/Adverse Reactions: Allergies azithromycin [From Zithromax] Allergy (Verified 10/10/16 00:08) Anaphylaxis linezolid [From Zyvox] Allergy (Verified 10/10/16 00:08) Anaphylaxis Date of admission: 11/05/16 23:06 Primary care physician: Kobe Bailon DO Consults: 11/08/16 12:43 Consult to Invasive Line Access Team [CONS] Routine Reason for Consult: likely will need long temr atb's. likely cefepime x14 days Line Type: Midline PICC line indications: residential Med/Antibiotic Consult to Urology [CONS] Routine Consulting Provider: Alvin Miller Reason for Consult: hx paraplegia with suprapubic catheter. Back again with another UTI- can you please evaluate and change the catheter if indicated? Thanks Time Notified: 12:44 Call Completed: Yes 11/08/16 12:54 Consult to Invasive Line Access Team [CONS] Routine Reason for Consult: residential antibiotics Line Type: EPIV Discharging clinician: Janice Serrano Anticipated date of discharge: 11/09/16 - Patient Status Disposition: Transfer SNF Condition: Good Functional capacity at discharge: bed bound Overall status at discharge: patient is back to baseline - Discharge Instructions Follow Up With: Kobe Bailon DO [Primary Care Provider] - Additional Instructions: Please follow up with your primary care physician within one week after your discharge from the hospital. Please follow up with Infectious Disease specialist within one to two weeks after your discharge from the hospital. Please resume all your other home medications as prescribed by your primary care physician. - Diet and Activity Activity: wear oxygen at all times Diet: low salt diet Hospital course: Mr. Jaramillo is a 51 year old male with PMH of paraplegia, neurogenic bladder s/ p suprapubic catheter placement, s/p PEG, htn, dm, bipolar dx, schizophrenia who was admitted for change in mental status and UTI. As per report patient was acting out at home which was a change in behavior for him due to which his family brought him to the hospital. Pt's taxicab driver has been recently been diagnosed with an acute illness and will be transitioned to hospice care, therefore pt does not have anyone to take care of him after discharge. He was started on empiric abx, however as per culture sensitivities, ESBL was resistant to the Cefepime patient had been receiving. He also had his suprapubic catheter changed. Pt's mental status is at baseline, he is hemodynamically stable and has been afebrile throughout the course of his admission. Prior to this hospitalization he recently finished 14 day IV abx course one week ago. At this time he will be discharged to [facility] without any abx as patient has a chronic indwelling catheter which is likely a contaminant at this time given his clinical presentation. ID will follow up with patient after discharge. - Time Spent with Patient Total time spent providing and/or coordinating discharge services: Greater than 30 minutes - Constitutional Vitals: Temp Pulse Resp BP Pulse Ox 97.4 F L 84 14 149/90 93 11/09/16 11:36 11/09/16 11:36 11/09/16 11:36 11/09/16 11:36 11/09/16 11:36 General appearance: Present: disheveled, A&O X 3 (paraplegic, bedbound), no acute distress, answers questions appropriately. Absent: cooperative, pleasant - Head Head exam: Present: atraumatic, normocephalic - Eye Eye exam: Present: normal appearance, conjuntiva pink, sclera anicteric - Respiratory Respiratory exam: Absent: respiratory distress, wheezes - Cardiovascular Cardiovascular exam: Present: RRR, +S1, +S2. Absent: diastolic murmur, gallop, rubs, systolic murmur - GI/Abdominal GI/Abdominal exam: Present: normal bowel sounds, soft, no peritoneal signs. Absent: distended, tenderness Additional comments: suprapubic cath PEG tube - Extremities Exam Extremities exam: Present: warm, radial pulses palpable and symetrical - Neurological Exam Neurological exam: Present: alert, oriented X3
--- NOTE | 2016-11-09 15:59 | Physician Discharge Referral ---
ExtendedCare Referral Info Transfer To: [facility] - Diagnosis (1) Bipolar disorder Priority: Secondary Status: Chronic (2) Chronic pain Priority: Secondary Status: Chronic (3) DVT prophylaxis Priority: Secondary Status: Acute (4) Hypertension Priority: Secondary Status: Chronic (5) Paraplegia Priority: Secondary Status: Chronic (6) Right ischial pressure sore, stage 4 Priority: Secondary Status: Chronic (7) Schizophrenia Priority: Secondary Status: Chronic (8) UTI (urinary tract infection) Priority: Primary Status: Acute - Transfer Medications Prescriptions: Oxycodone HCl 15 mg PO Q6H PRN #30 tablet PRN Reason: Pain Pregabalin [Lyrica] 150 mg PO BID #30 capsule Home Medications: Ascorbic Acid [Vitamin C] 500 mg PO DAILY 03/20/15 [History] Carvedilol 6.25 mg GTUBE DAILY 03/20/15 [History] Loratadine [Claritin] 10 mg GTUBE DAILY 03/20/15 [History] Metformin HCl [Glucophage] 1,000 mg PO BID 03/20/15 [History] Ondansetron HCl [Zofran] 4 mg PO Q6HR PRN #30 tablet 10/04/15 [Rx] Quetiapine Fumarate [Seroquel] 400 mg GTUBE HS 30 Days 10/29/15 [Rx] risperiDONE [RisperDAL] 0.5 mg PO BID #30 tablet 10/29/15 [Rx] Albuterol Sulfate [Ventolin Hfa] 2 puff IH Q4H PRN 11/02/15 [History] Cyanocobalamin (Vitamin B-12) [Vitamin B-12] 500 mcg PO DAILY 05/10/16 [History] Docusate Sodium [Docu Liquid] 100 mg PO BID 05/10/16 [History] Ranitidine HCl [Acid Environmental Remediation Engineer] 150 mg PO DAILY 05/10/16 [History] Sennosides [Senna] 17.6 mg PO HS 05/10/16 [History] Valproic Acid Oral Soln [Depakene Oral Soln] 250 mg PO TID 05/10/16 [History] Butalb/Acetaminophen/Caffeine [Esgic 50-325-40 mg Tablet] 1 tab PO TID PRN 07/16 [History] Morphine Sulfate [Morphine Oral Solution] 20 mg PO Q4H PRN 07/16/16 [History] Promethazine [Phenergan] 25 mg PO TID PRN 07/16/16 [History] Oxybutynin [Ditropan] 5 mg GTUBE TID 07/30/16 [History] Buspirone HCl [Buspar] 10 mg PO BID 10/10/16 [History] Lisinopril [Zestril] 10 mg PO DAILY 10/10/16 [History] Na Phos,M-B/Na Phos,Di-Ba [Fleet Enema Extra] 230 ml RC DAILY PRN 10/10/16 [ History] Nut.tx.gluc.intoler,Lac-Fr,Soy [Glucerna 1.5 Timoteo] 1 can PO AD 10/10/16 [History] Polyethylene Glycol 3350 [Smoothlax] 17 gm PO DAILY PRN 10/10/16 [History] Oxycodone HCl 15 mg PO Q6H PRN #30 tablet 11/09/16 [Rx] Pregabalin [Lyrica] 150 mg PO BID #30 capsule 11/09/16 [Rx] Allergies/Adverse Reactions: Allergies azithromycin [From Zithromax] Allergy (Verified 10/10/16 00:08) Anaphylaxis linezolid [From Zyvox] Allergy (Verified 10/10/16 00:08) Anaphylaxis - Respiratory Orders Smoking Cessation: Smoking cessation has been advised. For more information, call the [place] Tobacco Quit Line at 2-322-UUEA-NOW. - Treatments List/Other: Please follow up with your primary care physician within one week after your discharge from the hospital. Please follow up with Infectious Disease specialist within one to two weeks after your discharge from the hospital. Please resume all your other home medications as prescribed by your primary care physician. CERTIFICATION: I certify that the transfer of the above named patient to an Extended Care Facility is necessary for the continuing treatment of the diagnosis listed. The above information is true and accurate reflection of patient's current condition. Confidential - Redisclosure prohibited without a patient's written consent.
[2016-11-10] MEDS: 0.9 % Sodium Chloride 1,000 ML IVC SCH (03:15)
[2016-11-10] MEDS: *HR* Morphine 2 MG/ML SYRINGE IVP PRN ×2 (03:43→11:09)
[2016-11-10] MEDS: Cefepime HCl 2,000 MG in D5% in Water (Mini-Bag+) 100 ML IVPB SCH (06:37)
[2016-11-10] MEDS: Famotidine 20 MG/2 ML VIAL IVP SCH (06:37)
[2016-11-10] MEDS: Pantoprazole 40 MG VIAL IVP SCH (06:37)
[2016-11-10] MEDS: *HR* Enoxaparin 40 MG/0.4 ML SYRINGE SQ SCH (06:38)
[2016-11-10] MEDS: Docusate Oral Soln 100 MG/10 ML UDC PO SCH (09:29)
[2016-11-10] MEDS: Valproic Acid Oral Soln 250 MG/5 ML UDC PO SCH (09:29)
[2016-11-10] MEDS: Pregabalin 75 MG CAPSULE PO SCH (09:29)
[2016-11-10] MEDS: risperiDONE 0.25 MG TABLET PO SCH (09:30)
[2016-11-10] MEDS: Insulin LISPRO 300 UNITS/3 ML VIAL SQ SCH ×2 (09:30→12:49)
[2016-11-10] MEDS: Loratadine 10 MG TABLET GTUBE SCH (09:30)
[2016-11-10] MEDS: Acetaminophen/Butalbital/CaffeineTABLET PO PRN (11:09)
[2016-11-10 12:58] VITALS: BP 155/79
--- NOTE | 2016-11-10 13:43 | Internal Med Progress Note ---
Date of Encounter: 11/10/16 Time of Encounter: 13:41 - Assessment and plan (1) Bipolar disorder Current Visit: No Status: Chronic Qualifiers: Active/Remission status: remission status unspecified Qualified Code(s): F31.9 - Bipolar disorder, unspecified (2) Chronic pain Current Visit: Yes Status: Chronic Qualifiers: Chronic pain type: other chronic pain Qualified Code(s): G89.29 - Other chronic pain (3) DVT prophylaxis Current Visit: No Status: Acute (4) Hypertension Current Visit: No Status: Chronic Qualifiers: Hypertension type: essential hypertension Qualified Code(s): I10 - Essential (primary) hypertension (5) Paraplegia Current Visit: No Status: Chronic (6) Right ischial pressure sore, stage 4 Current Visit: 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 Resting in bed and was discharged to ECF yesterday. Discharge delayed due to placement issues. Pt will be discharged to ECF today. No overnight issues were reported. Pt will not be discharged on any abx. ID to follow up as outpatient - Constitutional Vitals: Temp Pulse Resp BP Pulse Ox 99.2 F 78 18 155/79 91 11/10/16 10:29 11/10/16 10:29 11/10/16 10:29 11/10/16 12:57 11/10/16 10:29 General appearance: Present: disheveled, A&O X 3 (paraplegic, bedbound), no acute distress, answers questions appropriately. Absent: cooperative, pleasant - Head Head exam: Present: atraumatic, normocephalic - Eye Eye exam: Present: normal appearance, conjuntiva pink, sclera anicteric - Respiratory Respiratory exam: Absent: respiratory distress, wheezes - Cardiovascular Cardiovascular exam: Present: RRR, +S1, +S2. Absent: diastolic murmur, gallop, rubs, systolic murmur - GI/Abdominal GI/Abdominal exam: Present: normal bowel sounds, soft. Absent: tenderness (PEG and suprapubic cath in place) - Extremities Exam Extremities exam: Present: pedal edema, warm, radial pulses palpable and symetrical - Neurological Exam Neurological exam: Present: alert, oriented X3 Internal Medicine: Result - Labs CBC & Chem 7: 11/07/16 02:30 11/08/16 05:22 Consult Discharge Plan - Plan Additional Instructions: Please follow up with your primary care physician within one week after your discharge from the hospital. Please follow up with Infectious Disease specialist within one to two weeks after your discharge from the hospital. Please resume all your other home medications as prescribed by your primary care physician. Referrals: Kobe Bailon DO [Primary Care Provider] - Prescriptions: Oxycodone HCl 15 mg PO Q6H PRN #30 tablet PRN Reason: Pain Pregabalin [Lyrica] 150 mg PO BID #30 capsule
== END 2016-11-10 14:20 | DRG 698 ==
LOC: 3BNU 17:43 → EMEROO 17:43 → 3BNU 22:07 → SUATTDRO 23:06
PROVIDERS: ADMIT Hospitalist; ATTEND Internal Medicine